=== PATIENT | female | born 1960 | race Caucasian/White ===

== ENCOUNTER → 2019-08-11 12:06 | Outpatient (BNVA) | payer MEDICAID, SELFPAY | PROVIDERS: Family Provider Nurse Practitioner Family; PCP Nurse Practitioner Family; Visit Provider Nurse Practitioner Family | DX: E11.9 Type 2 diabetes mellitus without complications (principal); H66.90 Otitis media, unspecified, unspecified ear | CPT/HCPCS: 36415; 80053; 83036; 84443; 85025 ==

== ENCOUNTER → 2019-08-23 09:06 | Outpatient (BNVA) | payer MEDICAID, SELFPAY | PROVIDERS: Family Provider Nurse Practitioner Family; PCP Nurse Practitioner Family; Visit Provider Psychiatry & Neurology Psychiatry | DX: F33.42 Major depressive disorder, recurrent, in full remission (principal); F01.50 Vascular dementia, unspecified severity, without behavioral disturbance, psychotic disturbance, mood disturbance, and anxiety | CPT/HCPCS: 99213 ==

== ENCOUNTER → 2019-09-01 08:39 | Outpatient (BNVA) | payer MEDICAID, SELFPAY | PROVIDERS: Family Provider Nurse Practitioner Family; PCP Nurse Practitioner Family; Visit Provider Specialist | DX: G43.711 Chronic migraine without aura, intractable, with status migrainosus (principal) | CPT/HCPCS: 64615; J0585 ==

== ENCOUNTER → 2019-09-02 11:35 | Outpatient (BNVA) | payer MEDICAID, SELFPAY | PROVIDERS: Family Provider Nurse Practitioner Family; PCP Nurse Practitioner Family; Visit Provider Nurse Practitioner Family | DX: N39.0 Urinary tract infection, site not specified (principal); I10 Essential (primary) hypertension; J30.2 Other seasonal allergic rhinitis | CPT/HCPCS: 36415; 80053; 83880; 85025; 87077; 87086; 87186 ==

== ENCOUNTER 2019-10-17 06:43 | Inpatient (IN) | payer MEDICAID, SELFPAY ==
[2019-10-17] VITALS (11 sets, daily range): BP systolic 115–154; BP diastolic 66–78; PULSE 72–91; RESP 15–22; TEMP 36.8–37.8; O2SAT 89–95; BMI 48.0
--- NOTE | 2019-10-17 06:56 | W.ED.ABDPA2 ---
HPI - Abdominal Pain General: Chief Complaint: Abdominal Pain Stated Complaint: ABD PAIN Time Seen by Provider: 10/17/19 06:48 History of Present Illness: HPI narrative: 59 yo female Dionicio complaining of lower abdominal pain into the left lower quadrant and the left flank. She had a temp at home of 1019. She had dysuria and urgency for the last 2 days lot of nausea no diarrhea or vomiting. She is not on any antibiotics now and recently has not been on any antibiotics. She denies hematuria no history of nephrolithiasis. She has no respiratory symptoms no change in cough she states she has a chronic cough but has not changed in either frequency character or severity. Associated Symptoms: Reports chills, dysuria and fever(s); Denies bloating, coffee ground emesis, constipation, diarrhea, hematochezia, hematemesis, melena, nausea and vomiting Review of Systems Const: Reports: fever and chills; Denies: body aches, change in appetite, fatigue or malaise ENMT: Denies: throat pain, ear pain, nasal discharge or nasal congestion Card: Denies: chest pain, edema, shortness of breath on exertion or shortness of breath when lying down Resp: Denies: shortness of breath, productive cough or non-productive cough GI: Denies: abdominal pain, nausea, vomiting, vomiting blood, coffee grounds in vomit, diarrhea, constipation, bloating, blood in stool or black tarry stool : Reports: flank pain, difficulty urinating, painful urination, urinary frequency and urinary urgency Skin/Breast: Denies: rash or itching PFSH ED PFSH: Medical History (Updated 10/17/19 @ 11:13 by Kayla Higgins DO) 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 Diabetes Dyslipidemia (high LDL; low HDL) Essential hypertension Knee arthropathy Major depression, recurrent, full remission Obstructive sleep apnea Vascular dementia without behavioral disturbance Surgical History History of arthroscopic knee surgery Bilateral History of section, classical History of cholecystectomy History of hysterectomy Hx of cardiac cath April 2016 Family History Mother Cancer Acute leukemia Father CAD (coronary artery disease) Social History (Updated 10/17/19 @ 11:14 by Kayla Higgins DO) Smoking and tobacco status: never smoked Second hand smoke exposure: No Alcohol intake: never Desire information about alcohol rehabilitation?: No Counseling given: No Substance/Drug Use: never Desire information about substance/drug rehabilitation?: No Counseling given: No Physical Exam Const: COMMON NORMALS: no apparent distress GENERAL APPEARANCE: cooperative and comfortable ORIENTATION/CONSCIOUSNESS: Yes awake, Yes oriented to person, Yes oriented to place and Yes oriented to time HENMT: COMMON NORMALS: normocephalic, head/scalp atraumatic, hearing grossly normal bilaterally, external ears normal, EAC's normal, TM's normal bilaterally, nasal mucous membranes and turbinates normal, moist oral mucous membranes and oropharynx normal HEAD & SCALP: normocephalic and atraumatic NOSE: nasal mucous membranes and turbinates normal EXTERNAL EAR: Yes external ears normal EXTERNAL AUDITORY CANAL: EAC's normal TYMPANIC MEMBRANE: TM's normal bilaterally Eye: COMMON NORMALS: PERRL, EOMs intact bilaterally, conjunctivae normal and no scleral icterus CONJUNCTIVA: Yes conjunctivae normal PUPIL: Yes PERRL Neck/C-Spine: COMMON NORMALS: full ROM, no lymphadenopathy, supple and no JVD Lymph: LYMPHATIC: no lymphadenopathy noted and no lymphedema noted Resp: COMMON NORMALS: normal respiratory effort, no retractions, no use of accessory muscles and clear to auscultation bilaterally AUSCULTATION: clear to auscultation bilaterally Cardio: COMMON NORMALS: no JVD, regular rate, regular rhythm and no murmurs RATE: regular rate RHYTHM: regular rhythm GI: COMMON NORMALS: soft to palpation and no hepatosplenomegaly AUSCULTATION: Yes normoactive bowel sounds PALPATION: Yes soft, No tender, No guarding and Yes no hepatosplenomegaly : BLADDER/KIDNEY EXAM: Yes CVA tenderness Back/Pelvis: GENERAL BACK: Yes CVA tenderness CVA tenderness: left Extremity: COMMON NORMALS: normal to inspection, normal capillary refill, no clubbing, cyanosis or edema, no calf tenderness and no pedal edema Neuro: SENSORIUM/ORIENTATION: Yes oriented to person, Yes oriented to place and Yes oriented to time Skin: COMMON NORMALS: no rashes or lesions noted GENERAL SKIN EXAM: no rashes or lesions noted Course Vital Signs: Vital signs: Vital Signs Temperature 98.7 F 10/17/19 16:00 Pulse Rate 72 10/17/19 16:00 Respiratory Rate 20 H 10/17/19 16:00 Blood Pressure 130/68 10/17/19 16:00 Pulse Oximetry 95 10/17/19 16:00 MDM - Abdominal Pain MDM Narrative: Medical decision making narrative: Reviewed case with the patient and with Dr. Higgins. Will admit for acute pyelonephritis orders are written Lab Data: Labs: Lab Results 10/17/19 10/17/19 10/17/19 Range/Units 07:00 07:00 07:28 WBC 10.2 H (4.0-10.0) 10^3/ uL RBC 3.93 L (4.1-5.3) 10^6/u L Hgb 11.7 (11.5-15.3) g/dL Hct 36.2 L (37.0-47.0) % MCV 92.1 (81-99) fL MCH 29.8 (28.0-34.0) pg MCHC 32.3 (30.0-36.0) g/dL RDW 12.9 (12.1-15.1) % Plt Count 155 (130-400) 10^3/c mm MPV 10.7 H (7.4-10.4) fL Neut % (Auto) 82.4 % Lymph % (Auto) 8.9 % Troup % (Auto) 7.6 % Eos % (Auto) 0.3 % Baso % (Auto) 0.4 % Neut # (Auto) 8.4 H (1.8-7.7) 10^3/u L Lymph # (Auto) 0.9 (0.8-4.8) 10^3/u L Troup # (Auto) 0.8 (0.2-0.9) 10^3/u L Eos # (Auto) 0.0 (0.0-0.8) 10^3/u L Baso # (Auto) 0.0 (0.0-0.1) 10^3/u L Nucleated RBC % (a uto) 0 % Nucleated RBCs # 0.0 /100WBC Sodium 138 (136-145) mmol/L Potassium 3.9 (3.5-5.1) mmol/L Chloride 100 (98-107) mmol/L Carbon Dioxide 23 (22-29) mmol/L Anion Gap 18.9 (5-19) BUN 22 H (6-20) mg/dL Creatinine 0.9 (0.5-0.9) mg/dL GFR Calculation 64.1 L (90-130) mL/min Glucose 197 H (65-115) mg/dL Calculated Osmolal ity 288 (285-295) mOsm/k g Calcium 9.8 (8.5-10.5) mg/dL Total Bilirubin 0.5 (0.15-1.2) mg/dL AST 20 (0-32) U/L ALT 19 (0-33) U/L Alkaline Phosphata se 84 (35-105) IU/L Total Protein 7.8 (6.6-8.7) g/dL Albumin 4.3 (3.5-5.2) g/dL Globulin 3.5 (1.3-4.6) g/dL Lipase 6 L (13-60) U/L Urine Color Yellow (Yellow) Urine Appearance Cloudy (CLEAR) Urine pH 5.0 (5-7) Ur Specific Gravit y 1.010 (1.005-1.030) Urine Protein 1+ H (Negative) Urine Glucose (UA) Norm (Normal) Urine Ketones Negative (Negative) Urine Blood 2+ H (Negative) Urine Nitrate Positive H (Negative) Urine Bilirubin Neg (NEGATIVE) Urine Urobilinogen Norm (Negative) mg/dL Ur Leukocyte Analy ase 2+ H (Negative) Urine RBC 25-40 H (0-2) /hpf Urine WBC >100 H (0-5) /hpf Ur Squamous Epith Cells 5-10 H (0-5) Urine Bacteria 2+ H (NONE) Urine Mucus Trace Discharge Plan Discharge Patient Disposition: Placed in Observation Admit Provider: Kayla Higgins Clinical Impression: Acute pyelonephritis Condition: Stable Referrals: ABELINO Alegria, [employer] [Primary Care Provider] - Discharge Date/Time: 10/17/19 10:03 Coding Level of Care Code 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
[2019-10-17 07:12] LABS: Basophils % 0.4 %; Eosinophils % 0.3 %; Hematocrit 36.2 % (37.0-47.0); Hemoglobin 11.7 g/dL (11.5-15.3); Lymphocytes # 0.9 10^3/uL (0.8-4.8); Lymphocytes % 8.9 %; Mean Corpuscular HGB Conc 32.3 g/dL (30.0-36.0); Mean Corpuscular Hemoglobin 29.8 pg (28.0-34.0); Mean Corpuscular Volume 92.1 fL (81-99); Mean Platelet Volume 10.7 fL (7.4-10.4); Monocytes # 0.8 10^3/uL (0.2-0.9); Monocytes % 7.6 %; Neutrophils # 8.4 10^3/uL (1.8-7.7); Neutrophils % 82.4 %; Nucleated Red Blood Cells % 0 %; Platelet Count 155 10^3/cmm (130-400); Red Blood Count 3.93 10^6/uL (4.1-5.3); Red Cell Distribution Width 12.9 % (12.1-15.1); White Blood Count 10.2 10^3/uL (4.0-10.0)
[2019-10-17 07:35] LABS: Alanine Aminotransferase 19 U/L (0-33); Albumin Level 4.3 g/dL (3.5-5.2); Alkaline Phosphatase 84 IU/L (35-105); Anion Gap 18.9 (5-19); Aspartate Amino Transferase 20 U/L (0-32); Blood Urea Nitrogen 22 mg/dL (6-20); Calcium 9.8 mg/dL (8.5-10.5); Carbon Dioxide 23 mmol/L (22-29); Chloride 100 mmol/L (98-107); Globulin 3.5 g/dL (1.3-4.6); Glomerular Filtration Rate 64.1 mL/min (90-130); Glucose 197 mg/dL (65-115); Lipase 6 U/L (13-60); Osmolality Calculated 288 mOsm/kg (285-295); Potassium 3.9 mmol/L (3.5-5.1); Sodium 138 mmol/L (136-145); Total Bilirubin 0.5 mg/dL (0.15-1.2); Total Protein 7.8 g/dL (6.6-8.7)
[2019-10-17] MEDS: ondansetron 2 mg/ML SDV 2 mL 4 MG IVP (07:38)
[2019-10-17] MEDS: morphine 4 mg/mL SDV 1 mL 2 MG IVP (07:38)
[2019-10-17] MEDS: sodium chloride 0.9% 500 ML 999 ML IV (07:41)
[2019-10-17 08:02] LABS: Add Urine Microscopic? YES; Bacteria Urine 2+; Bilirubin Urine Neg (NEGATIVE); Blood Urine 2+ (Negative); Glucose Urine UA Norm (Normal); Ketones Urine Negative (Negative); Leukocyte Esterase Urine 2+ (Negative); Nitrate Urine Positive (Negative); Protein Urine 1+ (Negative); RBC Urine 25-40 /hpf (0-2); Urine Appearance Cloudy (CLEAR); Urine Color Yellow (Yellow); Urobilinogen Urine Norm (Negative); WBC Urine >100 /hpf (0-5)
[2019-10-17 08:03] LABS: Add Urine Culture? Yes; Mucus Urine TRACE
--- NOTE | 2019-10-17 08:04 | US_ITS ---
WS: [id number] RENAL ULTRASOUND HISTORY: pyelonephritis COMPARISON: None available. TECHNIQUE: 2-D and color Doppler imaging of the kidney submitted. Right kidney: 11.3 cm x 5.8 cm x 5.2 cm. Normal echogenicity with no hydronephrosis or mass. Left kidney: 11.5 cm x 6.5 cm x 6.1 cm. Normal echogenicity with no hydronephrosis or mass. Aorta: Normal. Urinary Bladder: Normal distention. US/US renal BI* [id number] IMPRESSION: Normal renal ultrasound.
[2019-10-17] MEDS: sodium chloride 0.9% 1,000 ML 100 ML IV (10:23)
[2019-10-17] MEDS: diphenhydrAMINE 50 mg/mL SDV 1mL 25 MG IVP (10:23)
[2019-10-17] MEDS: acetaminophen 325 mg Tablet 650 MG PO ×2 (10:40→17:52)
[2019-10-17 10:49] LABS: Glucose Point of Care 179 mg/dL (70-110)
--- NOTE | 2019-10-17 11:04 | P.HP_ITS ---
Providers/Chief Complaint Admitting Physician: Kayla Higgins DO Primary Care Provider: MAGDIEL Vega Chief Complaint: PYLEONEPHRITIS History of Present Illness Shweta Morgan is a 59 year old female the past medical history of diabetes, hypertension, heart disease and obstructive sleep apnea that presented to the emergency department today for lower abdominal pain. She reports that she began developing symptoms on Thursday. She reported chills, unknown temperature at home, lower abdominal cramping and dysuria. She stated that then she began to have flank pain on the left. Due to continued symptoms she came into the ER for further evaluation and treatment today. She reports that she was recently on an antibiotic in August due to urinary tract infection, reports multiple drug allergies, stating that some of them she is uncertain of the allergic reaction. She reports having an allergy to sulfa drugs, however reports taking Bactrim in the past with no issues. Patient denies any respiratory symptoms, reported occasional chronic cough with no acute changes. She denies any exposure to anyone that is tested positive, or under investigation for CO VID-19. Patient was seen and evaluated in the emergency department noted to have concern for pyelonephritis due to her extensive drug allergies she was placed on observation for close monitoring and given Rocephin along with small dose of Benadryl. Review of Systems Const: Reports: chills; Denies: fever Eyes: Denies: change in vision ENMT: Denies: nasal congestion Card: Denies: chest pain, palpitations or edema Resp: Reports: other (Occasional nonproductive cough, unchanged); Denies: shortness of breath, productive cough or coughing up blood GI: Reports: abdominal pain; Denies: nausea, vomiting, diarrhea, constipation, blood in stool or black tarry stool : Reports: painful urination; Denies: blood in urine Musc: Denies: extremity pain or muscle cramps Skin/Breast: Denies: rash or new lesion Neuro: Denies: headache or dizziness Psych: Denies: anxiety or depression Endo: Denies: excessive urination or hot flashes Matias/Lymph: Denies: easy bruising or easy bleeding Medications/Allergies Home Medications Medication Instructions Recorded Confirmed Last Taken Type ergocalciferol (vitamin D2) 1,250 1,250 mcg PO .weekly #4 cap 07/25/19 10/17/19 Unknown Rx mcg (50,000 unit) capsule hydralazine 25 mg tablet 25 mg PO TID #360 tab 07/25/19 10/17/19 10/16/19 Rx magnesium oxide 400 mg PO BID #60 cap 07/25/19 10/17/19 10/16/19 Rx sucralfate 1 gram tablet 1 gm PO BID PRN #60 tab 07/25/19 10/17/19 Unknown Rx diabetic supplies, miscellan. #120 each 07/26/19 10/17/19 Unknown Rx lancets 30 gauge #100 each 07/26/19 10/17/19 Unknown Rx aspirin 81 mg chewable tablet 81 mg PO DAILY 08/24/19 10/17/19 10/16/19 History clopidogrel 75 mg tablet 75 mg PO DAILY 08/24/19 10/17/19 10/16/19 History fluticasone 500 mcg-salmeterol 50 1 inh INHALATION BID 08/24/19 10/17/19 10/16/19 History mcg/dose blistr powdr for inhalation melatonin 10 mg capsule 10 mg PO BEDTIME cap 08/24/19 10/17/19 10/16/19 History rosuvastatin 10 mg tablet 10 mg PO DAILY 08/24/19 10/17/19 10/16/19 History nitroglycerin 0.4 mg sublingual 0.4 mg SUBLINGUAL Q5M PRN #30 tab 08/26/19 10/17/19 Unknown Rx tablet aripiprazole 10 mg tablet 10 mg PO DAILY #30 tab 09/01/19 10/17/19 10/16/19 Rx pantoprazole 40 mg tablet,delayed 40 mg PO DAILY #30 tab 09/01/19 10/17/19 10/16/19 Rx release cetirizine 10 mg tablet 10 mg PO DAILY 30 Days #1 tab 09/02/19 10/17/19 10/16/19 Rx hydrocodone 5 mg-acetaminophen 325 1 tab PO Q4H PRN 09/02/19 10/17/19 10/16/19 History mg tablet pregabalin 150 mg capsule See Rx Instructions .ROUTE 09/02/19 10/17/19 10/16/19 History .COMPLEX cap insulin aspart U-100 100 unit/mL 15 unit SUBCUT TID 30 Days #15 ml 09/08/19 10/17/19 Unknown Rx (3 mL) subcutaneous pen acyclovir 200 mg capsule 200 mg PO BID #60 cap 09/21/19 10/17/19 10/16/19 Rx desvenlafaxine succinate 50 mg 50 mg PO DAILY #30 tab 09/21/19 10/17/19 10/16/19 Rx tablet,extended release 24 hr isosorbide mononitrate 30 mg 90 mg PO DAILY #270 tab 09/21/19 10/17/19 10/16/19 Rx tablet,extended release 24 hr ropinirole 3 mg tablet 3 mg PO DAILY #30 tab 09/21/19 10/17/19 10/16/19 Rx sitagliptin 100 mg tablet 100 mg PO DAILY 30 Days #30 tab 09/21/19 10/17/19 10/16/19 Rx amlodipine 10 mg tablet 10 mg PO DAILY #90 tab 09/22/19 10/17/19 10/16/19 Rx meclizine 25 mg tablet 25 mg PO TID PRN #30 tab 09/30/19 10/17/19 Unknown Rx Klor-Con 10 See Rx Instructions .ROUTE .COMPLEX 10/17/19 10/17/19 10/16/19 History albuterol sulfate 2 puff INHALATION QID PRN 10/17/19 10/17/19 Unknown History furosemide See Rx Instructions .ROUTE .COMPLEX 10/17/19 10/17/19 10/16/19 History insulin degludec [Tresiba U-100 100 unit SUBCUT BEDTIME 10/17/19 10/17/19 10/16/19 History Insulin] trazodone 50 mg PO BEDTIME 10/17/19 10/17/19 10/16/19 History Allergies Allergy/AdvReac Type Severity Reaction Status Date / Time acetaminophen [From Tylenol] Allergy ADR-Chest Verified 10/17/19 06:55 Pain cephalexin Allergy unknown Verified 10/17/19 06:54 doxycycline Allergy Unknown Verified 10/17/19 06:55 erythromycin base Allergy ALGY-Hives Verified 10/17/19 06:55 insulin detemir Allergy rash Verified 10/17/19 06:54 [From Levemir U-100 Insulin] levofloxacin [From Levaquin] Allergy unknown Verified 10/17/19 06:54 liraglutide [From Victoza] Allergy unknown Verified 10/17/19 06:54 Penicillins Allergy ALGY-Hives Verified 10/17/19 06:54 Sulfa (Sulfonamide Allergy unknown Verified 10/17/19 06:54 Antibiotics) tetracycline Allergy unknown Verified 10/17/19 06:54 PFSH Acute PFSH: Medical History (Updated 10/17/19 @ 11:13 by Kayla Higgins DO) Atherosclerosis of coronary artery of [place] heart with angina pectoris Diabetes Dyslipidemia (high LDL; low HDL) Essential hypertension Knee arthropathy Major depression, recurrent, full remission Obstructive sleep apnea Vascular dementia without behavioral disturbance Surgical History History of arthroscopic knee surgery Bilateral History of section, classical History of cholecystectomy History of hysterectomy Hx of cardiac cath April 2016 Family History Mother Cancer Acute leukemia Father CAD (coronary artery disease) Social History (Updated 10/17/19 @ 11:14 by Kayla Higgins DO) Smoking and tobacco status: never smoked Second hand smoke exposure: No Alcohol intake: never Desire information about alcohol rehabilitation?: No Counseling given: No Substance/Drug Use: never Desire information about substance/drug rehabilitation?: No Counseling given: No Supplemental PFSH Information: Patient lives at home, has home health services through [facility] Vitals/I&O/Wt Last Vital Signs Temp 99.7 F H 10/17/19 10:19 Pulse 84 10/17/19 10:19 Resp 20 H 10/17/19 10:19 BP 154/78 10/17/19 10:19 Pulse Ox 95 10/17/19 10:19 10/16/19 10/17/19 10/17/19 22:59 06:59 14:59 Intake Total 500 / 500 Balance 500 / 500 Weight last 48 hrs Weight 107.955 kg Physical Exam Const: COMMON NORMALS: oriented x3 and alert GENERAL APPEARANCE: cooperative ORIENTATION/CONSCIOUSNESS: Yes awake, Yes oriented to person, Yes oriented to place and Yes oriented to time HENMT: COMMON NORMALS: normocephalic and head/scalp atraumatic HEAD & SCALP: normocephalic and atraumatic Eye: COMMON NORMALS: PERRL PUPIL: Yes PERRL Neck/C-Spine: COMMON NORMALS: supple GENERAL: Yes normal visual inspection Resp: COMMON NORMALS: normal respiratory effort and clear to auscultation bilaterally EFFORT & INSPECTION: Yes able to speak in complete sentences AUSCULTATION: clear to auscultation bilaterally, no rhonchi and no wheezes Cardio: COMMON NORMALS: regular rate, regular rhythm and no murmurs RATE: regular rate RHYTHM: regular rhythm GI: PALPATION: Yes soft OTHER: Tenderness to palpation in the suprapubic region, no guarding or rigidity, no abdominal distention, obese, normal bowel sounds : BLADDER/KIDNEY EXAM: Yes CVA tenderness on the left (Mild) Extremity: COMMON NORMALS: no clubbing, cyanosis or edema and no calf tenderness Neuro: COMMON NORMALS: oriented x3, CN's II-XII intact bilaterally, moves all extremities and no focal motor deficits SENSORIUM/ORIENTATION: Yes alert, Yes oriented to person, Yes oriented to place and Yes oriented to time SPEECH: speech normal Psych: COMMON NORMALS: mental status grossly normal and cooperative Skin: COMMON NORMALS: no rashes or lesions noted GENERAL SKIN EXAM: no sky hes or lesions noted Data : 10/17/19 07:00 10/17/19 07:00 Micro: Microbiology 10/17/19 07:18 Blood Culture - Preliminary Blood SPECIMEN COLLECTED 10/17/19 07:00 Blood Culture - Preliminary Blood SPECIMEN COLLECTED A&P Assessment and plan (1) Acute pyelonephritis: Concern for left-sided flank pain with urinary tract infection and pyelonephritis. Placed on observation due to concern for multiple medication allergies and symptoms. Patient was given Benadryl along with dose of Rocephin in the ED, will continue to monitor closely and continue on Rocephin 1 g every 24 hours. Adjust antibiotic coverage based on clinical improvement and culture results. Tylenol and other pain control as needed Zofran as needed for nausea Renal ultrasound ordered and reviewed, no acute findings. Consider further imaging if indicated, however will hold off at this time Status: Acute (2) Atherosclerosis of coronary artery of [place] heart with angina pectoris: Followed closely by Dr. Winters Denies any chest pain or shortness of breath Continue on home medications of statin, aspirin, Plavix, Imdur, patient is not on a beta-kait at this time Status: Acute Qualifiers: Coronary Disease-Associated Artery/Lesion type: [place] artery Qualified Code(s): I25.119 - Atherosclerotic heart disease of [place] coronary artery with unspecified angina pectoris (3) Essential hypertension: Continue on amlodipine, Lasix, hydralazine Blood pressure in good control at this time Status: Acute (4) Obstructive sleep apnea: Continue with home CPAP settings Status: Acute (5) Vascular dementia without behavioral disturbance: Followed by Dr. Berumen, appears to be at baseline Status: Acute (6) Diabetes: Diabetes mellitus type 2, insulin-dependent Patient is on Januvia 100 mg daily along with NovoLog per sliding scale and she received 100 units at bedtime. Will hold on Januvia and decrease Tresiba to 75 units at bedtime as do not wish for patient to become hypoglycemic in the inpatient setting due to likely decreased oral intake from acute illness. 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 Expected stay less than 2 midnights Coding Level of Care Code Acute Inside Steward/Stewardess for [facility] Fwd Diagnoses Acute pyelonephritis N10 Atherosclerosis of coronary artery of [place] heart with angina pectoris I25.119 Coronary Disease-Associated Artery/Lesion type: [place] artery Essential hypertension I10 Obstructive sleep apnea G47.33 Vascular dementia without behavioral disturbance F01.50 Diabetes E11.42; Z79.4 Diabetes mellitus type: type 2 Diabetes mellitus terminal supervisor insulin use: with terminal supervisor use Diabetes mellitus complication status: with neurologic complications Diabetes mellitus complication detail: with polyneuropathy
[2019-10-17] MEDS: cefTRIAXone 1,000 MG in sodium chloride 0.9% (plus) 50 ML 100 MG IV (11:10)
[2019-10-17] MEDS: isosorbide mononitrate ER 30 mg Tablet 90 MG PO (12:39)
[2019-10-17] MEDS: FUROsemide 20 mg Tablet PO (12:39)
[2019-10-17] MEDS: ropinirole 1 mg Tablet PO (12:39)
[2019-10-17] MEDS: amlodipine 10 mg Tablet PO (12:39)
[2019-10-17] MEDS: hyDRALAzine 25 mg Tablet PO ×3 (12:40→20:12)
[2019-10-17] MEDS: aspirin 81 mg Chew Tablet PO (12:41)
[2019-10-17] MEDS: ARIPiprazole 10 mg Tablet PO (12:41)
[2019-10-17] MEDS: clopidogrel 75 mg Tablet PO (12:41)
[2019-10-17] MEDS: pregabalin 150 mg Capsule PO (12:41)
[2019-10-17] MEDS: ropinirole 2 mg Tablet PO (12:41)
[2019-10-17] MEDS: pantoprazole DR 40 mg Tablet PO (12:42)
[2019-10-17] MEDS: cetirizine 10 mg Tablet PO (12:42)
[2019-10-17] MEDS: enoxaparin 40 mg/0.4 mL Syringe SUBCUT (12:42)
[2019-10-17] MEDS: HYDROcodone-acetaminophen 5-325 mg Tablet 1 TAB PO ×2 (13:11→20:11)
[2019-10-17] MEDS: desvenlafaxine 50 mg Tablet PO (13:11)
[2019-10-17 16:32] LABS: Glucose Point of Care 162 mg/dL (70-110)
[2019-10-17] MEDS: acyclovir 400 mg Tablet 200 MG PO (17:52)
[2019-10-17] MEDS: magnesium oxide 400 mg tablet PO (17:52)
[2019-10-17] MEDS: atorvastatin 40 mg Tablet PO (20:12)
[2019-10-17] MEDS: trazodone 50 mg Tablet PO (20:13)
[2019-10-17] MEDS: pregabalin 150 mg Capsule 300 MG PO (20:13)
[2019-10-17 20:57] LABS: Glucose Point of Care 222 mg/dL (70-110)
[2019-10-18] VITALS (8 sets, daily range): BP systolic 126–150; BP diastolic 64–84; PULSE 77–91; RESP 18–24; TEMP 36.8–38.1; O2SAT 90–95
[2019-10-18] MEDS: HYDROcodone-acetaminophen 5-325 mg Tablet 1 TAB PO ×3 (02:13→19:07)
[2019-10-18 03:11] LABS: Basophils % 0.3 %; Eosinophils # 0.1 10^3/uL (0.0-0.8); Hematocrit 31.9 % (37.0-47.0); Lymphocytes # 0.7 10^3/uL (0.8-4.8); Lymphocytes % 11.8 %; Mean Corpuscular HGB Conc 31.3 g/dL (30.0-36.0); Mean Corpuscular Hemoglobin 29.9 pg (28.0-34.0); Mean Corpuscular Volume 95.2 fL (81-99); Mean Platelet Volume 10.7 fL (7.4-10.4); Monocytes # 0.5 10^3/uL (0.2-0.9); Monocytes % 8.3 %; Neutrophils # 4.9 10^3/uL (1.8-7.7); Neutrophils % 78.3 %; Nucleated Red Blood Cells % 0 %; Platelet Count 116 10^3/cmm (130-400); Red Blood Count 3.35 10^6/uL (4.1-5.3); Red Cell Distribution Width 13.1 % (12.1-15.1); White Blood Count 6.3 10^3/uL (4.0-10.0)
[2019-10-18 03:45] LABS: Alanine Aminotransferase 14 U/L (0-33); Albumin Level 3.5 g/dL (3.5-5.2); Alkaline Phosphatase 71 IU/L (35-105); Anion Gap 18.7 (5-19); Aspartate Amino Transferase 13 U/L (0-32); Blood Urea Nitrogen 20 mg/dL (6-20); Carbon Dioxide 22 mmol/L (22-29); Chloride 101 mmol/L (98-107); Globulin 3.1 g/dL (1.3-4.6); Glomerular Filtration Rate 73.4 mL/min (90-130); Glucose 202 mg/dL (65-115); Osmolality Calculated 288 mOsm/kg (285-295); Potassium 3.7 mmol/L (3.5-5.1); Sodium 138 mmol/L (136-145); Total Bilirubin 0.3 mg/dL (0.15-1.2); Total Protein 6.6 g/dL (6.6-8.7)
[2019-10-18 06:45] LABS: Glucose Point of Care 185 mg/dL (70-110)
[2019-10-18] MEDS: clopidogrel 75 mg Tablet PO (08:56)
[2019-10-18] MEDS: pregabalin 150 mg Capsule PO ×2 (08:56→11:57)
[2019-10-18] MEDS: desvenlafaxine 50 mg Tablet PO (08:56)
[2019-10-18] MEDS: isosorbide mononitrate ER 30 mg Tablet 90 MG PO (08:57)
[2019-10-18] MEDS: hyDRALAzine 25 mg Tablet PO ×3 (08:57→20:58)
[2019-10-18] MEDS: ropinirole 2 mg Tablet PO (08:57)
[2019-10-18] MEDS: acyclovir 400 mg Tablet 200 MG PO ×2 (08:57→17:23)
[2019-10-18] MEDS: ARIPiprazole 10 mg Tablet PO (08:57)
[2019-10-18] MEDS: aspirin 81 mg Chew Tablet PO (08:57)
[2019-10-18] MEDS: magnesium oxide 400 mg tablet PO ×2 (08:57→17:23)
[2019-10-18] MEDS: cetirizine 10 mg Tablet PO (08:57)
[2019-10-18] MEDS: amlodipine 10 mg Tablet PO (08:57)
[2019-10-18] MEDS: pantoprazole DR 40 mg Tablet PO (08:57)
[2019-10-18] MEDS: ropinirole 1 mg Tablet PO (08:58)
[2019-10-18 11:19] LABS: Glucose Point of Care 267 mg/dL (70-110)
--- NOTE | 2019-10-18 11:52 | PC.CHAP ---
Pastoral Care Encounter/Spiritual Assessment Type of Contact [] Declined fire lieutenant visit [] Patient/Family/Request visit [] Outpatient visit [] Follow-up visit [] Physician referral [] Code/Alert [x] Routine visit [] Staff referral [] Actively dying [] Patient sleeping [] Family support [] [] Out of room [] Palliative care [] [x] Receiving care in room [] Pre-surgical visit [] Trauma [] Long length of stay [] ICU visit [] Other: Relational/Emotional Strength [x] Patient feels connected with others/family/visitors/staff [] Distress [] Loneliness/isolation [] Abandonment Spirituality of Patient [x] Person of Lyn [] Attends Restorationism of their Lyn [x] Believes in Prayer [] Reads Bible or Spiritism materials [] There are Spiritual issues to be addressed Portable Pinch Riveter Interventions [x] Prayer [x] Active listening [x] Non-anxious presence [x] Spiritual/emotional support [x] Crisis/trauma care [x] Spiritual counseling [] Bereavement support [] Provided bereavement packet [] Provided Bible/devotional materials [] Provided toy/stuffed animal, coloring book to patient or family member [] Provided Communion [] Anointing/Hope [] Salvation [x] Completed spiritual assessment [] Other: Impact on Illness or Injury [] Angry [] Fearful [] Anxious [] Often cries [] Exhaustion [] Unable to work [] Unable to attend congregation [] Unable to walk/stand [] Unable to read [] Unable to drive [] Unable to eat/drink [] Unable to sleep [] Unable to be with family [] Patient intubated [] Other: Summary going on [place] [employer], feels good about going home Time spent with patient 10 mins
[2019-10-18] MEDS: cefTRIAXone 1,000 MG in sodium chloride 0.9% (plus) 50 ML 100 MG IV (12:01)
[2019-10-18] MEDS: acetaminophen 325 mg Tablet 650 MG PO (12:35)
--- NOTE | 2019-10-18 14:52 | PM.PN ---
Subjective Subjective: Interval history: Patient awake in bed at time of exam this morning. She denied any chest pain or shortness of breath. Reported some continued suprapubic tenderness, no nausea or vomiting. Patient reevaluated this afternoon reported that she is feeling somewhat better but continues to have some discomfort and dysuria. Vitals/I&O/Wt Last Vital Signs Temp 98.3 F 10/18/19 11:59 Pulse 91 10/18/19 11:59 Resp 20 H 10/18/19 11:59 BP 146/80 10/18/19 11:59 Pulse Ox 95 10/18/19 11:59 10/17/19 10/18/19 10/18/19 22:59 06:59 14:59 Intake Total 1367 / 2390.333 696 / 696 Output Total 230 / 480 850 / 1330 300 / 300 Balance 1137 / 1910.333 -850 / 1060.333 396 / 396 Weight last 48 hrs Weight 115.893 kg Weight 107.955 kg Physical Exam Const: COMMON NORMALS: oriented x3 and alert GENERAL APPEARANCE: cooperative ORIENTATION/CONSCIOUSNESS: Yes awake, Yes oriented to person, Yes oriented to place and Yes oriented to time HENMT: COMMON NORMALS: normocephalic and head/scalp atraumatic HEAD & SCALP: normocephalic and atraumatic Eye: COMMON NORMALS: PERRL PUPIL: Yes PERRL Neck/C-Spine: COMMON NORMALS: supple GENERAL: Yes normal visual inspection Resp: COMMON NORMALS: normal respiratory effort and clear to auscultation bilaterally EFFORT & INSPECTION: Yes able to speak in complete sentences AUSCULTATION: clear to auscultation bilaterally, no rhonchi and no wheezes Cardio: COMMON NORMALS: regular rate, regular rhythm and no murmurs RATE: regular rate RHYTHM: regular rhythm GI: COMMON NORMALS: soft to palpation PALPATION: Yes soft OTHER: Tenderness to palpation in the suprapubic region, no guarding or rigidity, no abdominal distention, obese, normal bowel sounds : BLADDER/KIDNEY EXAM: Yes CVA tenderness on the left (Mild) Back/Pelvis: GENERAL BACK: Yes CVA tenderness Extremity: COMMON NORMALS: no clubbing, cyanosis or edema and no calf tenderness Neuro: COMMON NORMALS: oriented x3, CN's II-XII intact bilaterally, moves all extremities and no focal motor deficits SENSORIUM/ORIENTATION: Yes alert, Yes oriented to person, Yes oriented to place and Yes oriented to time SPEECH: speech normal Psych: COMMON NORMALS: mental status grossly normal and cooperative Skin: COMMON NORMALS: no rashes or lesions noted GENERAL SKIN EXAM: no rashes or lesions noted Data : 10/18/19 02:45 10/18/19 02:45 Micro: Microbiology 10/17/19 07:28 Urine Culture - Preliminary Urine,Clean Catch Gram Negative Rods 10/17/19 07:18 Blood Culture - Preliminary Blood NEGATIVE TO DATE 10/17/19 07:00 Blood Culture - Preliminary Blood NEGATIVE TO DATE A&P Assessment and plan (1) Acute pyelonephritis: To inpatient admission due to patient having fever and this morning Patient doing well with Rocephin, will continue at this time and transition to oral antibiotics when appropriate. However due to continued fever will require inpatient admission for further treatment Zofran as needed for nausea Status: Acute (2) Atherosclerosis of coronary artery of [place] heart with angina pectoris: Followed closely by Dr. Winters Denies any chest pain or shortness of breath Continue on home medications of statin, aspirin, Plavix, Imdur, patient is not on a beta-kait at this time Status: Acute Qualifiers: Coronary Disease-Associated Artery/Lesion type: [place] artery Qualified Code(s): I25.119 - Atherosclerotic heart disease of [place] coronary artery with unspecified angina pectoris (3) Essential hypertension: Continue on amlodipine, Lasix, hydralazine Blood pressure in good control at this time Status: Acute (4) Obstructive sleep apnea: Continue with home CPAP settings Status: Acute (5) Vascular dementia without behavioral disturbance: Followed by Dr. Berumen, appears to be at baseline Status: Acute (6) Diabetes: Diabetes mellitus type 2, insulin-dependent Patient is on Januvia 100 mg daily along with NovoLog per sliding scale and she received 100 units at bedtime. Increase Tresiba to home dose of 100 units at bedtime Continue sliding scale insulin Status: Chronic Qualifiers: Diabetes mellitus type: type 2 Diabetes mellitus superintendent terminal insulin use: with superintendent terminal use Diabetes mellitus complication status: with neurologic complications Diabetes mellitus complication detail: with polyneuropathy Qualified Code(s): E11.42 - Type 2 diabetes mellitus with diabetic polyneuropathy; Z79.4 - lobsterman (current) use of insulin Attestations Medical Necessity Statement*: Change to inpatient admission due to concern for continued fever with pyelonephritis Coding Level of Care Code Acute Iv Therapy Nurse for Chg Fwd Diagnoses Acute pyelonephritis N10 Atherosclerosis of coronary artery of [place] heart with angina pectoris I25.119 Coronary Disease-Associated Artery/Lesion type: [place] artery Essential hypertension I10 Obstructive sleep apnea G47.33 Vascular dementia without behavioral disturbance F01.50 Diabetes E11.42; Z79.4 Diabetes mellitus type: type 2 Diabetes mellitus half-way insulin use: with half-way use Diabetes mellitus complication status: with neurologic complications Diabetes mellitus complication detail: with polyneuropathy
[2019-10-18 17:10] LABS: Glucose Point of Care 249 mg/dL (70-110)
[2019-10-18] MEDS: atorvastatin 40 mg Tablet PO (20:57)
[2019-10-18] MEDS: pregabalin 150 mg Capsule 300 MG PO (20:57)
[2019-10-18] MEDS: trazodone 50 mg Tablet PO (20:57)
[2019-10-18 21:09] LABS: Glucose Point of Care 226 mg/dL (70-110)
[2019-10-19] VITALS (10 sets, daily range): BP systolic 112–146; BP diastolic 59–72; PULSE 76–85; RESP 18–24; TEMP 36.5–37.2; O2SAT 94–98
[2019-10-19 05:27] LABS: Basophils % 0.2 %; Eosinophils % 0.5 %; Hemoglobin 9.6 g/dL (11.5-15.3); Lymphocytes # 0.8 10^3/uL (0.8-4.8); Mean Corpuscular Hemoglobin 30.4 pg (28.0-34.0); Mean Corpuscular Volume 94.9 fL (81-99); Mean Platelet Volume 10.4 fL (7.4-10.4); Monocytes # 0.4 10^3/uL (0.2-0.9); Monocytes % 9.8 %; Neutrophils # 3.2 10^3/uL (1.8-7.7); Neutrophils % 71.8 %; Nucleated Red Blood Cells % 0 %; Platelet Count 116 10^3/cmm (130-400); Red Blood Count 3.16 10^6/uL (4.1-5.3); Red Cell Distribution Width 12.8 % (12.1-15.1); White Blood Count 4.4 10^3/uL (4.0-10.0)
[2019-10-19 06:56] LABS: Glucose Point of Care 244 mg/dL (70-110)
[2019-10-19] MEDS: ropinirole 2 mg Tablet PO (09:00)
[2019-10-19] MEDS: pregabalin 150 mg Capsule PO ×2 (09:00→12:20)
[2019-10-19] MEDS: ropinirole 1 mg Tablet PO (09:00)
[2019-10-19] MEDS: cetirizine 10 mg Tablet PO (09:00)
[2019-10-19] MEDS: hyDRALAzine 25 mg Tablet PO ×3 (09:00→20:27)
[2019-10-19] MEDS: aspirin 81 mg Chew Tablet PO (09:00)
[2019-10-19] MEDS: isosorbide mononitrate ER 30 mg Tablet 90 MG PO (09:00)
[2019-10-19] MEDS: amlodipine 10 mg Tablet PO (09:00)
[2019-10-19] MEDS: FUROsemide 20 mg Tablet PO (09:00)
[2019-10-19] MEDS: ARIPiprazole 10 mg Tablet PO (09:00)
[2019-10-19] MEDS: clopidogrel 75 mg Tablet PO (09:00)
[2019-10-19] MEDS: pantoprazole DR 40 mg Tablet PO (09:00)
[2019-10-19] MEDS: desvenlafaxine 50 mg Tablet PO (09:00)
[2019-10-19] MEDS: acyclovir 400 mg Tablet 200 MG PO ×2 (09:01→17:17)
[2019-10-19] MEDS: magnesium oxide 400 mg tablet PO ×2 (09:01→17:17)
--- NOTE | 2019-10-19 10:12 | PC.CHAP ---
Pastoral Care Encounter/Spiritual Assessment Type of Contact [] Declined director of clinical applications visit [] Patient/Family/Request visit [] Outpatient visit [] Follow-up visit [] Physician referral [] Code/Alert [x] Routine visit [] Staff referral [] Actively dying [] Patient sleeping [] Family support [] [] Out of room [] Palliative care [] [] Receiving care in room [] Pre-surgical visit [] Trauma [] Long length of stay [] ICU visit [] Other: Relational/Emotional Strength [] Patient feels connected with others/family/visitors/staff [] Distress [] Loneliness/isolation [] Abandonment Spirituality of Patient [] Person of Lyn [] Attends Orthodoxy of their Lyn [x] Believes in Prayer [] Reads Bible or Oriental Orthodox materials [] There are Spiritual issues to be addressed Radio Frequency Design Engineer Interventions [x] Prayer [] Active listening [] Non-anxious presence [] Spiritual/emotional support [] Crisis/trauma care [] Spiritual counseling [] Bereavement support [] Provided bereavement packet [] Provided Bible/devotional materials [] Provided toy/stuffed animal, coloring book to patient or family member [] Provided Communion [] Anointing/[place] [] Salvation [x] Completed spiritual assessment [] Other: Impact on Illness or Injury [] Angry [] Fearful [] Anxious [] Often cries [] Exhaustion [] Unable to work [] Unable to attend religious [] Unable to walk/stand [] Unable to read [] Unable to drive [] Unable to eat/drink [] Unable to sleep [] Unable to be with family [] Patient intubated [] Other: Summary Patient resting Time spent with patient 5 min
[2019-10-19 10:58] LABS: Glucose Point of Care 302 mg/dL (70-110)
[2019-10-19] MEDS: HYDROcodone-acetaminophen 5-325 mg Tablet 1 TAB PO ×2 (13:47→20:24)
--- NOTE | 2019-10-19 16:17 | PM.PN ---
Subjective Subjective: Interval history: Patient awake in bed at time of exam this morning. She reported increased loose stools but improved dysuria. Discussed with patient plan for stool testing. Vitals/I&O/Wt Last Vital Signs Temp 98.5 F 10/19/19 15:16 Pulse 80 10/19/19 15:16 Resp 18 10/19/19 15:16 BP 127/72 10/19/19 15:16 Pulse Ox 98 10/19/19 15:16 10/19/19 10/19/19 10/19/19 06:59 14:59 22:59 Intake Total 120 / 1296 120 / 120 Output Total 800 / 1950 Balance -680 / -654 120 / 120 Weight last 48 hrs Weight 116.658 kg Weight 116.658 kg Weight 115.893 kg Physical Exam Const: COMMON NORMALS: oriented x3 and alert GENERAL APPEARANCE: cooperative ORIENTATION/CONSCIOUSNESS: Yes awake, Yes oriented to person, Yes oriented to place and Yes oriented to time HENMT: COMMON NORMALS: normocephalic and head/scalp atraumatic HEAD & SCALP: normocephalic and atraumatic Eye: COMMON NORMALS: PERRL PUPIL: Yes PERRL Neck/C-Spine: COMMON NORMALS: supple GENERAL: Yes normal visual inspection Resp: COMMON NORMALS: normal respiratory effort and clear to auscultation bilaterally EFFORT & INSPECTION: Yes able to speak in complete sentences AUSCULTATION: clear to auscultation bilaterally, no rhonchi and no wheezes Cardio: COMMON NORMALS: regular rate, regular rhythm and no murmurs RATE: regular rate RHYTHM: regular rhythm GI: COMMON NORMALS: soft to palpation PALPATION: Yes soft OTHER: Normal bowel sounds, no guarding or rigidity, no tenderness to palpation today : BLADDER/KIDNEY EXAM: Yes CVA tenderness on the left (Mild) Back/Pelvis: GENERAL BACK: Yes CVA tenderness Extremity: COMMON NORMALS: no clubbing, cyanosis or edema and no calf tenderness Neuro: COMMON NORMALS: oriented x3, CN's II-XII intact bilaterally, moves all extremities and no focal motor deficits SENSORIUM/ORIENTATION: Yes alert, Yes oriented to person, Yes oriented to place and Yes oriented to time SPEECH: speech normal Psych: COMMON NORMALS: mental status grossly normal and cooperative Skin: COMMON NORMALS: no rashes or lesions noted GENERAL SKIN EXAM: no rashes or lesions noted Data : 10/19/19 05:10 10/18/19 02:45 Micro: Microbiology 10/19/19 12:25 C.difficile Toxin B Gene (PCR) - Final Stool 10/17/19 07:28 Urine Culture - Final Urine,Clean Catch Escherichia coli A&P Assessment and plan (1) Acute pyelonephritis: Improving Continue on Rocephin, urine culture showing E. coli Status: Acute (2) Atherosclerosis of coronary artery of [place] heart with angina pectoris: Followed closely by Dr. Winters Denies any chest pain or shortness of breath Continue on home medications of statin, aspirin, Plavix, Imdur, patient is not on a beta-kait at this time Status: Acute Qualifiers: Coronary Disease-Associated Artery/Lesion type: [place] artery Qualified Code(s): I25.119 - Atherosclerotic heart disease of [place] coronary artery with unspecified angina pectoris (3) Essential hypertension: Continue on amlodipine, Lasix, hydralazine Blood pressure in good control at this time Status: Acute (4) Obstructive sleep apnea: Continue with home CPAP settings Status: Acute (5) Vascular dementia without behavioral disturbance: Followed by Dr. Berumen, appears to be at baseline Status: Acute (6) Diabetes: Diabetes mellitus type 2, insulin-dependent Patient is on Januvia 100 mg daily along with NovoLog per sliding scale and she received 100 units at bedtime. 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 C. difficile toxin checked and returned positive. Will start on oral vancomycin. We will continue to monitor patient closely with possible discharge to home tomorrow Attestations Medical Necessity Statement*: Patient requires further hospitalization due to pyelonephritis with C. difficile colitis. Coding Level of Care Code Acute Clay Artisan for Bailey Arce Diagnoses Acute pyelonephritis N10 Atherosclerosis of coronary artery of [place] heart with angina pectoris I25.119 Coronary Disease-Associated Artery/Lesion type: [place] artery Essential hypertension I10 Obstructive sleep apnea G47.33 Vascular dementia without behavioral disturbance F01.50 Diabetes E11.42; Z79.4 Diabetes mellitus type: type 2 Diabetes mellitus corn lab technician insulin use: with halfway use Diabetes mellitus complication status: with neurologic complications Diabetes mellitus complication detail: with polyneuropathy
[2019-10-19 16:49] LABS: Glucose Point of Care 200 mg/dL (70-110)
[2019-10-19] MEDS: trazodone 50 mg Tablet PO (20:24)
[2019-10-19] MEDS: atorvastatin 40 mg Tablet PO (20:24)
[2019-10-19] MEDS: pregabalin 150 mg Capsule 300 MG PO (20:24)
[2019-10-19 20:34] LABS: Glucose Point of Care 273 mg/dL (70-110)
[2019-10-20] VITALS (8 sets, daily range): BP systolic 105–153; BP diastolic 63–83; PULSE 66–88; RESP 18–20; TEMP 36.6–36.9; O2SAT 88–98
[2019-10-20] MEDS: HYDROcodone-acetaminophen 5-325 mg Tablet 1 TAB PO ×2 (00:22→04:43)
[2019-10-20] MEDS: sodium chloride 0.9% 1,000 ML 30 ML IV (03:15)
[2019-10-20 06:26] LABS: Glucose Point of Care 313 mg/dL (70-110)
[2019-10-20] MEDS: ropinirole 2 mg Tablet PO (08:03)
[2019-10-20] MEDS: ropinirole 1 mg Tablet PO (08:03)
[2019-10-20] MEDS: ARIPiprazole 10 mg Tablet PO (08:03)
[2019-10-20] MEDS: magnesium oxide 400 mg tablet PO (08:03)
[2019-10-20] MEDS: acyclovir 400 mg Tablet 200 MG PO (08:03)
[2019-10-20] MEDS: pregabalin 150 mg Capsule PO ×2 (08:03→12:14)
[2019-10-20] MEDS: clopidogrel 75 mg Tablet PO (08:04)
[2019-10-20] MEDS: aspirin 81 mg Chew Tablet PO (08:04)
[2019-10-20] MEDS: pantoprazole DR 40 mg Tablet PO (08:04)
[2019-10-20] MEDS: cetirizine 10 mg Tablet PO (08:04)
[2019-10-20] MEDS: amlodipine 10 mg Tablet PO (08:04)
[2019-10-20] MEDS: hyDRALAzine 25 mg Tablet PO (08:04)
[2019-10-20] MEDS: isosorbide mononitrate ER 30 mg Tablet 90 MG PO (08:04)
[2019-10-20] MEDS: desvenlafaxine 50 mg Tablet PO (08:14)
[2019-10-20 11:26] LABS: Glucose Point of Care 358 mg/dL (70-110)
[2019-10-20] MEDS: cefTRIAXone 1,000 MG in sodium chloride 0.9% (plus) 50 ML 100 MG IV (12:13)
[2019-10-20] MEDS: enoxaparin 40 mg/0.4 mL Syringe SUBCUT (12:14)
--- NOTE | 2019-10-20 12:31 | PM.DCS ---
Discharge Providers Date of Admission: 10/18/19 14:52 Date of Discharge: October 20, 2019 Attending Provider at Admission: Kayla Higgins DO Attending Provider at Discharge: Kayla Higgins DO Primary Care Provider: MAGDIEL Vega Diagnoses at Discharge Discharge Diagnosis (1) Acute pyelonephritis: Status: Acute (2) Atherosclerosis of coronary artery of [place] heart with angina pectoris: Status: Acute Qualifiers: Coronary Disease-Associated Artery/Lesion type: [place] artery Qualified Code(s): I25.119 - Atherosclerotic heart disease of [place] coronary artery with unspecified angina pectoris (3) Essential hypertension: Status: Acute (4) Obstructive sleep apnea: Status: Acute (5) Vascular dementia without behavioral disturbance: Status: Acute (6) Diabetes: Status: Chronic Qualifiers: Diabetes mellitus type: type 2 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 She was noted to have multiple medication adverse reactions including an adverse reaction which was unknown to Dieudonne in the past. Due to the nature of her infection she was placed on IV antibiotics, Rocephin. Patient did well with the dose of medication and did not have any allergic reaction. She continued to have intermittent fevers and therefore was transitioned to inpatient stay. She was continued on IV antibiotics and urine culture showed E. coli. Patient reported increasing loose stools and C. difficile toxin was checked and returned positive. She was then started on oral vancomycin. She continued to improve and on date of discharge she denied any abdominal pain, no nausea or vomiting and tolerated diet well. Stools had decreased in frequency. Physical Exam Const: COMMON NORMALS: oriented x3 and alert GENERAL APPEARANCE: cooperative ORIENTATION/CONSCIOUSNESS: Yes awake, Yes oriented to person, Yes oriented to place and Yes oriented to time HENMT: COMMON NORMALS: normocephalic and head/scalp atraumatic HEAD & SCALP: normocephalic and atraumatic Eye: COMMON NORMALS: PERRL PUPIL: Yes PERRL Neck/C-Spine: COMMON NORMALS: supple GENERAL: Yes normal visual inspection Resp: COMMON NORMALS: normal respiratory effort and clear to auscultation bilaterally EFFORT & INSPECTION: Yes able to speak in complete sentences AUSCULTATION: clear to auscultation bilaterally, no rhonchi and no wheezes Cardio: COMMON NORMALS: regular rate, regular rhythm and no murmurs RATE: regular rate RHYTHM: regular rhythm GI: COMMON NORMALS: soft to palpation PALPATION: Yes soft OTHER: Normal bowel sounds, no guarding or rigidity, no tenderness to palpation Extremity: COMMON NORMALS: no clubbing, cyanosis or edema and no calf tenderness Neuro: COMMON NORMALS: oriented x3, CN's II-XII intact bilaterally, moves all extremities and no focal motor deficits SENSORIUM/ORIENTATION: Yes alert, Yes oriented to person, Yes oriented to place and Yes oriented to time SPEECH: speech normal Psych: COMMON NORMALS: mental status grossly normal and cooperative Skin: COMMON NORMALS: no rashes or lesions noted GENERAL SKIN EXAM: no rashes or lesions noted Discharge Data Data Completed and Pending: Completed Studies During Hospitalization Category Date Time Status US renal BI* [id number] Stat Ultrasound 10/17/19 08:04 Completed Pending at discharge Category Date Time Status Blood Culture Sta t Lab 10/17/19 07:18 Results Labs from last 24 hours 10/20/19 10/20/19 10/19/19 11:10 06:18 20:29 POC Glucose 358 313 273 10/19/19 16:40 POC Glucose 200 Vitals: Last Vital Signs Temp 98.5 F 10/20/19 11:31 Pulse 81 10/20/19 11:31 Resp 18 10/20/19 11:31 BP 128/66 10/20/19 11:31 Pulse Ox 96 10/20/19 11:31 Discharge Plan Discharge Patient Disposition: Home, Self-Care Condition: Stable Prescriptions: New vancomycin 125 mg capsule 125 mg PO QID 20 Days Qty: 80 RF: 0 cefixime 400 mg capsule 400 mg PO DAILY 6 Days Qty: 6 RF: 0 Continued hydrocodone-acetaminophen [Lorcet (hydrocodone)] 5-325 mg tablet 1 tab PO Q4H PRN (Reason: Pain) RF: 0 cetirizine [Zyrtec] 10 mg tablet 10 mg PO DAILY 30 Days Qty: 1 RF: 2 rosuvastatin 10 mg tablet 10 mg PO DAILY RF: 0 melatonin 10 mg capsule 10 mg PO BEDTIME RF: 0 fluticasone propion-salmeterol 500-50 mcg/dose blister with device 1 inh INHALATION BID RF: 0 aspirin 81 mg tablet,chewable 81 mg PO DAILY RF: 0 pregabalin [Lyrica] 150 mg capsule See Rx Instructions .ROUTE .COMPLEX RF: 0 hydralazine 25 mg tablet 25 mg PO TID Qty: 360 RF: 3 sucralfate [Carafate] 1 gram tablet 1 gm PO BID PRN (Reason: gerd) Qty: 60 RF: 2 ergocalciferol (vitamin D2) [Drisdol] 1,250 mcg (50,000 unit) capsule 1,250 mcg PO .weekly Qty: 4 RF: 1 magnesium oxide 400 mg magnesium capsule 400 mg PO BID Qty: 60 RF: 2 (DME) lancets [OneTouch Delica Lancets] 30 gauge misc See Rx Instructions .ROUTE .MEDSUPPLY Qty: 100 RF: 5 (DME) diabetic supplies, miscellan. Misc See Rx Instructions .ROUTE .MEDSUPPLY Qty: 120 RF: 5 nitroglycerin 0.4 mg tablet, sublingual 0.4 mg SUBLINGUAL Q5M PRN (Reason: chest pain) Qty: 30 RF: 1 aripiprazole 10 mg tablet 10 mg PO DAILY Qty: 30 RF: 5 Novolog Flexpen U-100 Insulin 100 unit/mL (3 mL) insulin pen 15 unit SUBCUT TID 30 Days Qty: 15 RF: 5 isosorbide mononitrate 30 mg tablet extended release 24 hr 90 mg PO DAILY Qty: 270 RF: 3 desvenlafaxine succinate [Pristiq] 50 mg tablet extended release 24 hr 50 mg PO DAILY Qty: 30 RF: 2 Januvia 100 mg tablet 100 mg PO DAILY 30 Days Qty: 30 RF: 1 ropinirole 3 mg tablet 3 mg PO DAILY Qty: 30 RF: 2 acyclovir 200 mg capsule 200 mg PO BID Qty: 60 RF: 2 amlodipine 10 mg tablet 10 mg PO DAILY Qty: 90 RF: 3 meclizine 25 mg tablet 25 mg PO TID PRN (Reason: dizziness) Qty: 30 RF: 0 pantoprazole 40 mg tablet,delayed release (DR/EC) 40 mg PO DAILY Qty: 30 RF: 5 trazodone 50 mg tablet 50 mg PO BEDTIME RF: 0 Klor-Con 10 10 mEq tablet extended release See Rx Instructions .ROUTE .COMPLEX RF: 0 furosemide 20 mg tablet See Rx Instructions .ROUTE .COMPLEX RF: 0 Tresiba U-100 Insulin 100 unit/mL solution 100 unit SUBCUT BEDTIME RF: 0 albuterol sulfate 90 mcg/actuation Hfa Aerosol Inhaler 2 puff INHALATION QID PRN (Reason: Shortness Of Breath) RF: 0 Discontinued clopidogrel 75 mg tablet 75 mg PO DAILY Qty: 90 RF: 3 Discharge Orders: Discharge Order (Routine); Ordered 10/20/19 Ordered By: Kayla Higgins Referrals: ABELINO Alegria, [facility] ATTENDANT [Primary Care Provider] - 1-3 days Discharge Diet: Advance as tolerated, Cardiac and Diabetic Discharge Activity: Increase activity as tolerated Activity Restrictions/Additional Instructions: Started on oral vancomycin 4 times a day for total of 20 days Recommended to take probiotic and eat yogurt with active cultures, while being mindful of blood glucose readings Continue on antibiotic as prescribed and noted above for UTI Follow-up with primary care provider in 3 to 5 days Call your physician or present to the ED for any acute illness or concern Continue with home oxygen as previously prescribed Discharge to home with in-home services Discharge Attestations Time Spent in Discharge Care*: greater than 30 min Quality Metrics Clinical Quality Measures During this hospital stay, did patient experience: None Coding Level of Care Code Acute Sales Service Supervisor for g Fwd Diagnoses Acute pyelonephritis N10 Atherosclerosis of coronary artery of [place] heart with angina pectoris I25.119 Coronary Disease-Associated Artery/Lesion type: [place] artery Essential hypertension I10 Obstructive sleep apnea G47.33 Vascular dementia without behavioral disturbance F01.50 Diabetes E11.42; Z79.4 Diabetes mellitus type: type 2 Diabetes mellitus shelter insulin use: with shelter use Diabetes mellitus complication status: with neurologic complications Diabetes mellitus complication detail: with polyneuropathy
== END 2019-10-20 17:37 | disposition home or self-care (01) | DRG 690 ==
LOC: ER 09:52 → MEDSURG 09:53
PROVIDERS: Admitting Provider Family Medicine; Emergency Provider Family Medicine; Family Provider Nurse Practitioner Family; PCP Nurse Practitioner Family; Visit Provider Family Medicine
DX: N10 Acute pyelonephritis (principal); E11.9 Type 2 diabetes mellitus without complications; I10 Essential (primary) hypertension; G47.33 Obstructive sleep apnea (adult) (pediatric); Z88.0 Allergy status to penicillin; I25.119 Atherosclerotic heart disease of native coronary artery with unspecified angina pectoris; E78.5 Hyperlipidemia, unspecified; F01.50 Vascular dementia, unspecified severity, without behavioral disturbance, psychotic disturbance, mood disturbance, and anxiety; N39.0 Urinary tract infection, site not specified; Z79.4 Long term (current) use of insulin; E11.42 Type 2 diabetes mellitus with diabetic polyneuropathy; E11.49 Type 2 diabetes mellitus with other diabetic neurological complication; Z79.02 Long term (current) use of antithrombotics/antiplatelets; B96.20 Unspecified Escherichia coli [E. coli] as the cause of diseases classified elsewhere; Z79.891 Long term (current) use of opiate analgesic; Z79.82 Long term (current) use of aspirin
CPT/HCPCS: 12345; 36415; 36416; 76770; 80053; 81001; 82962; 83690; 85025; 87040; 87077; 87086; 87186; 87493; 94640; 94660; 96372; 96375; 99282; G0378; J0696; J1200; J1650; J1815; J2270; J2405; J3370; J7030; J7040; J8499

== ENCOUNTER 2019-10-17 06:43 | Emergency (ER) | payer MEDICAID, SELFPAY | END 2019-10-17 10:03 | disposition admitted as inpatient to this hospital (09) | LOC: ER 10-19 09:57 | PROVIDERS: Emergency Provider Family Medicine; Family Provider Nurse Practitioner Family; PCP Nurse Practitioner Family | DX: N10 Acute pyelonephritis (principal); E11.9 Type 2 diabetes mellitus without complications; E78.5 Hyperlipidemia, unspecified; I10 Essential (primary) hypertension; F03.90 Unspecified dementia, unspecified severity, without behavioral disturbance, psychotic disturbance, mood disturbance, and anxiety | CPT/HCPCS: 12345; 36415; 36416; 76770; 80053; 81001; 82962; 83690; 85025; 87040; 87086; 94640; 94660; 96372; 96374; 96375; 99282; 99285; G0378; J0696; J1200; J1650; J1815; J2270; J2405; J7030; J7040; J8499 ==

== ENCOUNTER → 2019-11-09 11:56 | Outpatient (BNVA) | payer MEDICAID, SELFPAY | PROVIDERS: Family Provider Nurse Practitioner Family; PCP Nurse Practitioner Family; Visit Provider Nurse Practitioner Family | DX: H66.90 Otitis media, unspecified, unspecified ear; E55.9 Vitamin D deficiency, unspecified; E11.42 Type 2 diabetes mellitus with diabetic polyneuropathy; Z79.4 Long term (current) use of insulin; I10 Essential (primary) hypertension; M54.5 Low back pain; M79.605 Pain in left leg; E78.5 Hyperlipidemia, unspecified; F33.42 Major depressive disorder, recurrent, in full remission; R19.7 Diarrhea, unspecified | CPT/HCPCS: 80053; 80061; 81001; 82306; 83036; 84443; 84681; 85025; 87077; 87086; 87186 ==

== ENCOUNTER → 2019-12-14 07:28 | Outpatient (BNVA) | payer MEDICAID, SELFPAY ==
[2019-11-22 13:45] VITALS: BP 120/80; BMI 50.5
== END ==
PROVIDERS: Family Provider Nurse Practitioner Family; PCP Nurse Practitioner Family; Visit Provider Psychiatry & Neurology Psychiatry
DX: F33.42 Major depressive disorder, recurrent, in full remission (principal); G47.00 Insomnia, unspecified
CPT/HCPCS: 99213

== ENCOUNTER → 2019-12-21 10:30 | Outpatient (BNVA) | payer MEDICAID, SELFPAY ==
[2019-11-22 13:45] VITALS: BP 120/80; BMI 50.5
== END ==
PROVIDERS: Family Provider Nurse Practitioner Family; PCP Nurse Practitioner Family; Visit Provider Nurse Practitioner Family
DX: N39.0 Urinary tract infection, site not specified (principal); J44.9 Chronic obstructive pulmonary disease, unspecified; E11.42 Type 2 diabetes mellitus with diabetic polyneuropathy; Z79.4 Long term (current) use of insulin
CPT/HCPCS: 81001

== ENCOUNTER → 2019-12-22 09:46 | Outpatient (BNVA) | payer MEDICAID, SELFPAY ==
[2019-11-22 13:45] VITALS: BP 120/80; BMI 50.5
== END ==
PROVIDERS: Family Provider Nurse Practitioner Family; PCP Nurse Practitioner Family; Visit Provider Specialist
DX: G43.711 Chronic migraine without aura, intractable, with status migrainosus (principal)
CPT/HCPCS: 64615; J0585

== ENCOUNTER 2019-12-27 13:21 | Outpatient (CLI) | payer MEDICAID, SELFPAY ==
[2019-11-22 13:45] VITALS: BP 120/80; BMI 50.5
--- NOTE | 2019-12-27 13:25 | US_ITS ---
WS: [id number] RENAL ULTRASOUND HISTORY: CHRONIC KIDNEY DZ/STAGE 3 COMPARISON: 10/17/2019 TECHNIQUE: 2-D and color Doppler imaging of the kidney submitted. Right kidney: 10.9 cm x 4.6 cm x 5.8 cm. Normal echogenicity with no hydronephrosis or mass. Left kidney: 10.7 cm x 4.9 cm x 5.9 cm. Normal echogenicity with no hydronephrosis or mass. Small exophytic cyst from the lower pole measures 1.9 x 1.4 x 1.5 cm. There is an additional poorly visualized cyst from the upper pole measuring 1.6 x 1.3 x 1.3 cm. Aorta: Normal. Urinary Bladder: Normal distention. US/US renal BI* [id number] IMPRESSION: 1. No hydronephrosis. 2. Small cortical cystS LEFT kidney.
== END 2019-12-27 13:22 | disposition home or self-care (01) ==
LOC: RAD 13:24
PROVIDERS: PCP Nurse Practitioner Family; Visit Provider Internal Medicine Nephrology
DX: N18.3 Chronic kidney disease, stage 3 (moderate) (principal); Q61.01 Congenital single renal cyst
CPT/HCPCS: 76770

== ENCOUNTER → 2020-02-08 09:49 | Outpatient (BNVA) | payer MEDICAID, SELFPAY ==
[2020-02-08 09:04] VITALS: BP 120/80; BMI 50.5
== END ==
PROVIDERS: PCP Nurse Practitioner Family; Visit Provider Nurse Practitioner Family
DX: D64.9 Anemia, unspecified (principal); E11.42 Type 2 diabetes mellitus with diabetic polyneuropathy; I10 Essential (primary) hypertension; Z79.4 Long term (current) use of insulin; E78.5 Hyperlipidemia, unspecified; E55.9 Vitamin D deficiency, unspecified; J44.9 Chronic obstructive pulmonary disease, unspecified
CPT/HCPCS: 80053; 80061; 81003; 82306; 82607; 82746; 83036; 83550; 83735; 84443; 85025; 87077; 87086; 87186

== ENCOUNTER → 2020-03-15 09:41 | Outpatient (BNVA) | payer MEDICAID, SELFPAY ==
[2020-02-08 09:04] VITALS: BP 120/80; BMI 50.5
== END ==
PROVIDERS: PCP Nurse Practitioner Family; Visit Provider Specialist
DX: G43.711 Chronic migraine without aura, intractable, with status migrainosus (principal)
CPT/HCPCS: 64615; J0585

== ENCOUNTER → 2020-03-16 07:40 | Outpatient (BNVA) | payer MEDICAID, SELFPAY ==
[2020-02-08 09:04] VITALS: BP 120/80; BMI 50.5
== END ==
PROVIDERS: PCP Nurse Practitioner Family; Visit Provider Psychiatry & Neurology Psychiatry
DX: F33.42 Major depressive disorder, recurrent, in full remission (principal); F01.50 Vascular dementia, unspecified severity, without behavioral disturbance, psychotic disturbance, mood disturbance, and anxiety; G47.33 Obstructive sleep apnea (adult) (pediatric); F41.1 Generalized anxiety disorder
CPT/HCPCS: 99213

== ENCOUNTER → 2020-03-20 12:02 | Outpatient (BNVA) | payer MEDICAID, SELFPAY ==
[2020-02-08 09:04] VITALS: BP 120/80; BMI 50.5
== END ==
PROVIDERS: PCP Nurse Practitioner Family; Visit Provider Nurse Practitioner Family
DX: N39.0 Urinary tract infection, site not specified (principal); D51.9 Vitamin B12 deficiency anemia, unspecified; G25.81 Restless legs syndrome; E78.2 Mixed hyperlipidemia; G47.00 Insomnia, unspecified; R30.0 Dysuria; E66.01 Morbid (severe) obesity due to excess calories; Z68.43 Body mass index [BMI] 50.0-59.9, adult; E11.42 Type 2 diabetes mellitus with diabetic polyneuropathy; Z79.4 Long term (current) use of insulin
CPT/HCPCS: 80053; 81003; 87077; 87086; 87186

== ENCOUNTER 2020-04-13 07:25 | Outpatient (CLI) | payer MEDICAID, SELFPAY ==
[2020-02-08 09:04] VITALS: BP 120/80; BMI 50.5
--- NOTE | 2020-04-13 08:02 | ECG_ITS ---
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 Interpretive Statements NAME OF STUDY: LEXISCAN SESTAMIBI STRESS TEST INDICATION: Chest Pain, PROCEDURE: At the baseline, the EKG revealed normal sinus rhythm with a poor R wave progression. No significant ST-T changes. The baseline blood pressure was 157/79 mm Hg with a heart rate of 61 beats/min. Lexiscan was infused over a period of 20 seconds. A total of 0.4 milligrams of Lexiscan was infused. The stress phase was continued for a total of 5 minutes. Heart rate at the end of the stress phase was 75 with a blood pressure 173/81. The EKG at the peak infusion revealed no significant changes. Sestamibi was injected 20 seconds after the Lexiscan infusion. Blood pressure at the end of the recovery phase was 167/77 with a heart rate of 73 per minute. CONCLUSION: 1. No significant EKG changes with the LexiScan infusion 2. No LexiScan induced chest pain or cardiac arrhythmia 3. Normal blood pressure and heart rate response 4. Sestamibi/sestamibi perfusion scan pending; see separate report. Electronically Signed On 04-13-2020 21:14:24 CDT by Elizabeth Winters M.D. [email or web address]
--- NOTE | 2020-04-13 08:02 | NMCV_ITS ---
NM luis miguel perf SPECT r/s* [id number] Shweta Morgan Age: 60 Gender: F : 1960 Exam Date: 04/13/2020 08:55 Ordering Phys: Elizabeth Winters MD ([email or web address]) Technologist: GARETH Gonzalez Exam Location: [facility] Indications: CHEST PAIN STRESS TEST [facility] IMAGE PROTOCOL Rest/Stress 1 Lexiscan Day Radiopharmaceutical Dose (mCi) Administration Site Administered by Rest: Tc-99m 10.7 IV GARETH Pedraza Sestamibi Stress:Tc-99m 32.6 IV GARETH Pedraza Sestamibi Rest: 13-Apr-2020 60 Discovery 630 Stress: 13-Apr-2020 30 Discovery 630 0.4mg Lexiscan. Images obtained in supine and prone position. SPECT RESULTS Technical Quality: Good Raw Data Analysis: Breast attenuation Image Corrections: No attenuation or motion correction applied Summed Stress Score: 8 Summed Rest Score: 2 Summed Difference Score: 6 PERFUSION FINDINGS Moderate area of decreased tracer uptake in the basal and mid anterolateral, mid inferolateral, apical lateral, apical anterior and LV apex. Significant reversibility was noted in these regions at rest. FUNCTIONAL RESULTS (calculated via Gated SPECT) Stress Image LV EF (%): 63 Stress EDV (mL):105 TID: 0.94 Stress ESV (mL):39 FUNCTIONAL FINDINGS: Segmental wall motion analysis revealing no gross wall motion of normalities IMPRESSIONS 1. Myocardial perfusion imaging revealing a moderate area of moderately decreased tracer uptake in the anterolateral, inferolateral and apical regions with significant reversibility, suggestive of ischemia predominantly in the distribution of the left circumflex artery with some involvement of the distal right coronary artery and left anterior descending artery. 2. Normal LV ejection fraction of 63%. 3. LV wall motion analysis revealing no gross wall motion normalities. 4. Normal LV volume. Compared to the previous study from 07/08/2018, the ischemic burden in the distribution of the left circumflex artery appears to be more significant Dr Elizabeth Winters MD [facility] (Electronically Signed) Final Date: 13 April 2020 14:52 S
[2020-04-13 08:19] VITALS: BMI 54.3
[2020-04-13 09:58] VITALS: BP 178/81; PULSE 79
[2020-04-13] MEDS: regadenoson 0.4 Mg/5 ml Syringe IVP (09:58)
== END 2020-04-13 07:26 | disposition home or self-care (01) ==
LOC: RAD 07:28 → CDL 07:29
PROVIDERS: PCP Nurse Practitioner Family; Visit Provider Internal Medicine Cardiovascular Disease
DX: R07.9 Chest pain, unspecified (principal)
CPT/HCPCS: 78452; 93017; A9500; J2785

== ENCOUNTER → 2020-04-17 00:01 | Outpatient (BNVA) | payer MEDICAID, SELFPAY ==
[2020-02-08 09:04] VITALS: BP 120/80; BMI 50.5
== END ==
PROVIDERS: PCP Nurse Practitioner Family; Visit Provider Nurse Practitioner Family
DX: E11.42 Type 2 diabetes mellitus with diabetic polyneuropathy (principal); Z79.4 Long term (current) use of insulin; R30.0 Dysuria; R31.9 Hematuria, unspecified
CPT/HCPCS: 80053; 81003; 87077; 87086; 87184

== ENCOUNTER → 2020-04-18 08:59 | Outpatient (BNVA) | payer MEDICAID, SELFPAY ==
[2020-02-08 09:04] VITALS: BP 120/80; BMI 50.5
== END ==
PROVIDERS: PCP Nurse Practitioner Family; Referring Provider Nurse Practitioner Family; Visit Provider Internal Medicine
DX: E11.42 Type 2 diabetes mellitus with diabetic polyneuropathy (principal); E11.59 Type 2 diabetes mellitus with other circulatory complications; I25.10 Atherosclerotic heart disease of native coronary artery without angina pectoris; E11.65 Type 2 diabetes mellitus with hyperglycemia; E78.2 Mixed hyperlipidemia; I10 Essential (primary) hypertension; N39.0 Urinary tract infection, site not specified
CPT/HCPCS: 99204

== ENCOUNTER → 2020-05-10 09:21 | Outpatient (BNVA) | payer MEDICAID, SELFPAY ==
[2020-02-08 09:04] VITALS: BP 120/80; BMI 50.5
== END ==
PROVIDERS: PCP Nurse Practitioner Family; Visit Provider Internal Medicine Cardiovascular Disease
DX: Z20.828 Contact with and (suspected) exposure to other viral communicable diseases (principal); Z01.812 Encounter for preprocedural laboratory examination
CPT/HCPCS: 87635

== ENCOUNTER → 2020-05-11 10:06 | Outpatient (BNVA) | payer MEDICAID, SELFPAY ==
[2020-02-08 09:04] VITALS: BP 120/80; BMI 50.5
== END ==
PROVIDERS: PCP Nurse Practitioner Family; Visit Provider Internal Medicine Cardiovascular Disease
DX: Z20.828 Contact with and (suspected) exposure to other viral communicable diseases (principal); Z01.812 Encounter for preprocedural laboratory examination
CPT/HCPCS: 80048; 85025; 85610

== ENCOUNTER 2020-05-14 10:48 | Observation (INO) | payer MEDICAID, SELFPAY ==
[2020-02-08 09:04] VITALS: BP 120/80; BMI 50.5
[2020-05-14] VITALS (44 sets, daily range): BP systolic 110–193; BP diastolic 61–116; PULSE 57–76; RESP 14–23; TEMP 36.6–36.7; O2SAT 93–99; BMI 52.1
[2020-05-14] MEDS: diphenhydrAMINE 50 mg Capsule PO (06:40)
--- NOTE | 2020-05-14 07:00 | XACV_ITS ---
Ht: 150 cm Wt: 117 kg BSA: 2.29 m2 Gender: Female : 1960 Any Known Allergies: Other Exam Priority: Routine Procedure(s): Procedure Description: Diagnostic procedure Procedure Description: PCI procedure Procedure Description: Left Heart Catheterization Procedure Description: Drug Eluting Coronary Stent Procedure Description: PTCA Procedure Description: Coronary Angiography Diagnostic Cath Status: Elective Diagnostic Findings * No significant disease noted in the Left Main, LAD, Circumflex, or RCA coronary arteries. * Mid Left Anterior Descending Coronary Artery: has lesion. * Coronary angiography shows right dominance. * Patient has no left main. 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 The left anterior descending artery was found to have a long stented area involving the proximal and mid segment. There was high-grade in-stent stenosis near to the distal end of the stented segment. Mid LAD appears to bifurcates. The artery appears to taper off towards the LV apex. The first and the second diagonal branches were found to have some ostial narrowing and appears to come off the stented segments of the artery. No other significant stenotic lesions were noted. * The circumflex artery is a very small caliber vessel which originates at the ostium of the right coronary artery. Mild diffuse intimal irregularities are noted in the vessel. No significant stenotic lesions. * The right coronary artery is a large caliber dominant vessel which was found to have no significant stenotic lesions. The PLV branch of the artery was found to have minimal intimal irregularities. No significant other lesions. PCI Status: Elective PCI Indication: New Onset Angina <= 2 months Interventional Findings * Successful PCI to mid LAD. Lesion was deployment of MARIMAR MDT 2.75 x 15 mm stent posted at high JENIFER of 9 mm. Stent was then post-dilated with serial dilatation of NC EUPHORA 2.75x8mm a at 14 JENIFER in its entire length to ensure proper approximation. Excellent angiographic result with ASA-3 flow was achieved. . Conclusions 1. No significant disease noted in the Left Main, LAD, Circumflex, or RCA coronary arteries. 2. This is a 60-year-old white female with multiple medical problems including type 2 diabetes, high blood pressure, dyslipidemia, coronary artery disease with previous PCI, presented with increasing episodes of chest pains. She had a myocardial perfusion imaging revealing some areas of reversible defect in the anterolateral and lateral segments. In view of her ongoing symptoms, in order to further evaluate her coronary status, a repeat cardiac catheterization was recommended. Patient underwent left heart catheterization with a left and right coronary angiogram today. The findings are as follows. 3. 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 The left and descending artery was found to have a long stented area involving the proximal and mid segment. There was a high-grade lesion of around 80% involving the distal stented segment. Minimal ostial narrowing in the diagonal branches . Right coronary artery and the circumflex arteries were found to have minimal intimal irregularities with no significant stenotic lesions. The LVEDP was 25 mmHg. Based on the angiographic findings, it was thought to be appropriate to consider PCI of the in-stent stenosis in the LAD. I discussed and reviewed the cardiac catheterization data with the , who agreed with this plan and took over further management of this patient at this point. Recommendations * 1-Return to inpatient for close monitoring and routine cath care 2-Risk factor modification for secondary prevention 3-Statin and aspirin 81 mg life--long, if tolerated 4-Continue Plavix 75mg p.o. daily for at least one year. We will assess at the end of one year again to continue if further or not 5-Continue optimal medical management 6-Follow up with Dr. Winters in four weeks and your primary care in 10 days. Interventional RX Recommendation: PCI w/o planned CABG Diagnostic RX Recommendation: PCI w/o planned CABG LV EDP: 25 mmHg Left Ventriculography Findings: * LV gram was not performed because of the patient's history of renal insufficiency. Pressures Phase:Rest AO : 233 / 106 ( 104 ) @ 3:55:00 AM 106 / 71 ( 89 ) @ 3:58:00 AM 117 / 92 ( 99 ) @ 4:01:00 AM 155 / 72 ( 103 ) @ 4:05:00 AM 153 / 68 ( 101 ) @ 4:05:00 AM 142 / 74 ( 103 ) @ 4:26:00 AM 152 / 89 ( 113 ) @ 4:34:00 AM LV : 155 / -8 / @ 4:04:00 AM 156 / -5 / @ 4:05:00 AM Valves Phase:DefaultPhase AV : 3.0 @ 10:47:32 AM 3.0 @ 10:47:32 AM AV Mean Gradient: 7.0 @ 10:47:32 AM Clinical Evaluation EBL: 5mL-10mL Procedural Details Procedure Consent Obtained. Pre-Procedure Time Out. Identified patient by full name and date of as verbalized by the patient/guarantor. Does the consent match the physician's order: Yes. Accurate & Complete Informed Consent: Yes. Inpatient/Outpatient History & Physical on Chart: Yes. If H&P is completed, is and addenduem needed: N/A; If yes, is the addendum complete: N/A. Visualize and Verify Site with Patient/Guarantor: N/A. Relevant Radiology Images available: Yes. Pre-op teaching completed and patient verbalized understanding. The risks, benefits, and alternatives of sedation and/or procedure were discussed by physician. The patient agrees to continue. Procedure started. Correct patient, site and procedure confirmed by cath team. PERRLA. Strong, equal hand machine shop instructor bilaterally. Lungs clear x 5 lobes. IV Site on Arrival: 20 gauge in the right anticubital. IV Fluids: 0.9% NaCl at KVO. 0 mL infused prior to earthmoving labourer. Pre Procedural Pulses: bilateral dorsalis pedis was 3+. Pre Procedural Pulses: bilateral posterior tibial was 1+. Pre Procedural Pulses: bilateral radial was 3+. Oxygen started at 2liters/min via nasal canula. bilateral groins was prepped with chloroprep then draped in the usual sterile fashion. Physician notified. Baseline sample Acquired. HR: 59 BPM. Equipment: 6F - Femoral. Cardiac Cath Pack. ACIST Manifold Kit Model BT 2000. Heparinized Saline (2 units/mL), 1000 mL bag. Kit, Micropuncture. Physician arrived. Physician scrubbed in. Immediate Pre-Procedure Time Out. Correct Patient: Yes; Correct Procedure: Yes; Correct Site: Yes; Correct Patient Position: Yes; Correct Supplies: Yes; Dried Flammable Prep: Yes; Blood Products Available: No;. Lidocaine 1% infiltrated to the right groin. Arterial access obtained with micropuncture set. A 5 italian JL4 catheter in over wire. Multiple views taken of left coronary artery. Catheter out. A 5 italian JR4 catheter in over wire. Multiple views taken of right coronary artery. Dr. Gandhi called. Catheter out. A 5 italian Angled Pig catheter in over wire. EDP Sample taken: LV 155/-9,29; HR: 57 BPM; SpO2: 97%. Pullback taken: LV 156/-6,28; AO 155/72(103); Mean: 7mmHg, Peak to Peak: 3mmHg, SEP: 15sec/min; HR: 56 BPM; SpO2: 97%. Catheter out. Side port of sheath flushed with Normal Saline flush to maintain patency. Perry Gandhi arrived. Inventory is Advanced Sports Logicgar XT .[address] Guidewire. Dr. Gandhi scrubbed in to perform intervention. Patient's family updated. [facility] Clinical Fraility Score: 4: Vulnerable. Dental Patient Coordinator Indications: Worsening Angina. Chest Pain Symptom Assessment: Typical Angina Symptoms. Cardiovascular Instability: No. 5fr sheath exchanged for a 6fr sheath. 6 italian XB 3 guide catheter was inserted over the wire. Parker guidewire was advanced through the guide catheter to lesion in the mid LAD. Multiple views taken of left coronary artery. Inflation Number : 1 A PARISH Lui MARIMAR 2.75X15 DENI -Lot Number# [id number] exp 02-11-2022 was prepped and advanced across the Mid LAD. The stent was deployed at 9 JENIFER for 0:33 seconds. Stent balloon out over wire. Inflation number : 2 A PARISH THOMPSON EUPHORA RX [id number] BALLOON was prepped and advanced across the Mid LAD , then inflated to 10 JENIFER for 0:28 seconds. Inflation number: 3 The MDT NC EUPHORA RX [id number] BALLOON was reinflated across the Mid LAD, to 7 JENIFER for 0:17 seconds. Inflation number: 4 The MDT NC EUPHORA RX [id number] BALLOON was reinflated across the Mid LAD, to 14 JENIFER for 0:13 seconds. Results checked. Balloon and wire out. Guide catheter out. A Suture was successful obtaining hemostatsis at the Right Femoral artery insertion site. Sheath(s) sutured into position with 2-0 silk and sterile 4x4's and Op-site applied over the site. No oozing or signs and symptoms of hematoma noted. Arterial sheath flushed and connected to tranducer and pressure bag with heparinized saline. PERRLA. Strong, equal hand machine shop instructor bilaterally. No VTE prophylaxis required. Fluoro: 83:00. Contrast type used: Omnipaque 300 mgI/mL, 500 mL bottle. [id number]. Complications: none. Estimated blood loss: 5mL-10mL. Procedure completed. ACT drawn. Results 190 seconds. Therapeutic limits - pre-heparin administration 90-150 seconds and monitoring heparin during a vascular procedure >250 seconds. PCI Indication: New Onset Angina. Post-op diagnosis: PCI to mid LAD. Medication's Wasted: Lidocaine 1% = 5 mL. Medication's Wasted: Heparin = 3500 units. Medication's Wasted: Other = hydralazine 10 mg. Total IV fluids: 100 mL. Patient transferred by bed to 1st floor. Vital chart was stopped. Access Site Site: Right Femoral artery Sheath Size: 5 Fr Hemostasis Success: Unsuccessful Site: Right Femoral artery Sheath Size: 6 Fr Hemostasis Method: Suture Hemostasis Success: Successful Procedure Medications Start: 9:38 AM Stop: 9:38 AM Medication: Versed Amount: 1 mg Route: I.V. Start: 9:39 AM Stop: 9:39 AM Medication: Fentanyl Amount: 50 mcg Route: I.V. Start: 9:53 AM Stop: 9:53 AM Medication: Heparin Amount: 1500 units Route: I.V. Start: 9:54 AM Stop: 9:54 AM Medication: Versed Amount: 1 mg Route: I.V. Start: 9:54 AM Stop: 9:54 AM Medication: Fentanyl Amount: 50 mcg Route: I.V. Start: 10:18 AM Stop: 10:18 AM Medication: Heparin Amount: 7000 units Route: I.V. Start: 10:40 AM Stop: 10:40 AM Medication: Plavix Amount: 300 mg Route: P.O. Start: 10:42 AM Stop: 10:42 AM Medication: Heparin Amount: 2000 units Route: I.V. Start: 10:45 AM Stop: 10:45 AM Medication: Hydralazine Amount: 10 mg Route: I.V. I, the attending physician, have reviewed and verified all procedure medications. Yes, all medications given per verbal order History/Risk Factors Hypertension: Yes Dyslipidemia: Yes Prior Interventions PCI: Yes Report Signatures Interventional Workflow Finalized by Yamile Gandhi MD on 05/31/2020 11:16 AM Diagnostic Workflow Finalized by Dr Elizabeth Winters MD FAC on 05/15/2020 11:04 AM
--- NOTE | 2020-05-14 09:39 | W.PM.OPSUD ---
Surgery/Procedure H&P Update DATE OF PROCEDURE: May 14, 2020 DATE H&P PERFORMED: 04/19/20 H&P UPDATE INFORMATION: I have reviewed H&P completed within last 30 days, I have examined patient prior to procedure and No changes to prior documentation PLANNED PROCEDURE: Operation Date: 05/14/20 07:00 Proposed Procedures p Cardiac Catheterization R94.39 35700(Left) - Elizabeth Winters MD PATIENT REASSESSED PRIOR TO SEDATION, WITH NO CHANGE NOTED: Yes PHYSICAL EXAM: alert, oriented x 3, clear to auscultation bilaterally and regular rate & rhythm AIRWAY EVAL/ANESTHESIA PLAN: normal airway, see other exam findings, ASA III, Monitored Anesthesia, Local Anesthesia, Risks, benefits & alternatives of sedation and/or procedure discussed and Patient agrees to continue as planned
[2020-05-14] MEDS: ipratropium-albuterol 3 mL Neb INHALATION ×3 (11:57→20:26)
[2020-05-14] MEDS: ARIPiprazole 10 mg Tablet PO (12:16)
[2020-05-14] MEDS: cetirizine 10 mg Tablet PO (12:17)
[2020-05-14] MEDS: sodium chloride 0.9% 1,000 ML 50 ML IV (12:18)
[2020-05-14] MEDS: pregabalin 150 mg Capsule PO (12:32)
[2020-05-14] MEDS: aspirin 325 mg EC Tablet PO (12:42)
[2020-05-14 13:42] LABS: Partial Thromboplastin Time 81.5 SECONDS (23.9-36.7)
[2020-05-14] MEDS: hyDRALAzine 50 mg Tablet PO ×2 (14:53→21:15)
[2020-05-14] MEDS: desvenlafaxine 50 mg Tablet PO (15:57)
[2020-05-14] MEDS: ALPRAZolam 0.25 mg Tablet PO (16:05)
[2020-05-14 16:37] LABS: Partial Thromboplastin Time 42.4 SECONDS (23.9-36.7)
[2020-05-14] MEDS: fentaNYL 50 mcg/mL INJ 2mL IVP (16:45)
--- NOTE | 2020-05-14 17:41 | PC.NURSE ---
Removed right femoral groin sheath and applied manual pressure to site x 25 minutes with minimal oozing. Small hematoma just above puncture site with minimal bruising. Patient was initially breathing heavily and using abdominal wall muscles, but with much encouragement was able to control & calm her breathing.
[2020-05-14] MEDS: metoprolol tartrate 25 mg Tablet PO (18:18)
[2020-05-14] MEDS: acyclovir 400 mg Tablet 200 MG PO (18:19)
--- NOTE | 2020-05-14 19:15 | PC.NURSE ---
Patient resting in bed Patient denies any pain. Dressing is dry and intact. NO hematoma noted. Good pulses.
[2020-05-14 20:57] LABS: Glucose Point of Care 224 mg/dL (70-110)
[2020-05-14] MEDS: fluticasone nasal spray 16gm Btl 2 SPRAY NASAL (21:15)
[2020-05-15] VITALS (8 sets, daily range): BP systolic 134–163; BP diastolic 75–80; PULSE 63–78; RESP 16–21; TEMP 36.1–36.8; O2SAT 95–98
--- NOTE | 2020-05-15 03:10 | PC.NURSE ---
Patient ambulated post cath. tolerated well no pain. Site is dry and intact. no hematoma.
[2020-05-15 04:59] LABS: Basophils % 0.5 %; Eosinophils # 0.1 10^3/uL (0.0-0.8); Eosinophils % 1.7 %; Hematocrit 37.3 % (37.0-47.0); Hemoglobin 11.3 g/dL (11.5-15.3); Lymphocytes # 1.2 10^3/uL (0.8-4.8); Lymphocytes % 15.4 %; Mean Corpuscular HGB Conc 30.3 g/dL (30.0-36.0); Mean Corpuscular Hemoglobin 29.4 pg (28.0-34.0); Mean Corpuscular Volume 96.9 fL (81-99); Monocytes # 0.5 10^3/uL (0.2-0.9); Monocytes % 5.9 %; Nucleated Red Blood Cells % 0 %; Platelet Count 183 10^3/cmm (130-400); Red Blood Count 3.85 10^6/uL (4.1-5.3); Red Cell Distribution Width 14.4 % (12.1-15.1)
--- NOTE | 2020-05-15 05:02 | PC.NURSE ---
Called Dr. Gandhi due to PAtient complaint of R leg pain and her site oozing. Patient pain 8/10. pedal and tibal pulse same as earlier in the shift. Orders recieved for 2mg of morphine x1 IVP. NO hematoma noted on assessment. Other RN on the floor assessed Cath site as well.
[2020-05-15] MEDS: morphine 4 mg/mL SDV 1 mL 2 MG IVP (05:06)
[2020-05-15 05:17] LABS: Anion Gap 15.2 (5-19); Blood Urea Nitrogen 17 mg/dL (8-23); Calcium 9.5 mg/dL (8.5-10.5); Carbon Dioxide 26 mmol/L (22-29); Chloride 104 mmol/L (98-107); Glomerular Filtration Rate 63.9 mL/min (90-130); Glucose 174 mg/dL (65-115); Osmolality Calculated 298 mOsm/kg (285-295); Potassium 4.2 mmol/L (3.5-5.1); Sodium 141 mmol/L (136-145)
--- NOTE | 2020-05-15 05:25 | PC.NURSE ---
Called Dr. Gandhi Site assessed again found small hematoma 2cm. Orders to monitor site, pulses, and pain.
--- NOTE | 2020-05-15 06:26 | PC.NURSE ---
End of shift: Hematoma remains the same size patient pain has improved. Patient remains alert and oriented and vitals are stable. dressing is clean and intact.
[2020-05-15 06:36] LABS: Glucose Point of Care 162 mg/dL (70-110)
[2020-05-15] MEDS: ipratropium-albuterol 3 mL Neb INHALATION ×2 (07:52→15:42)
--- NOTE | 2020-05-15 08:02 | PC.CHAP ---
Pastoral Care Encounter/Spiritual Assessment Type of Contact [] Declined art class model visit [] Patient/Family/Request visit [] Outpatient visit [] Follow-up visit [] Physician referral [] Code/Alert [] Routine visit [] Staff referral [] Actively dying [] Patient sleeping [] Family support [] [] Out of room [] Palliative care [] [x] Receiving care in room [] Pre-surgical visit [] Trauma [] Long length of stay [] ICU visit [] Other: Relational/Emotional Strength [] Patient feels connected with others/family/visitors/staff [] Distress [] Loneliness/isolation [] Abandonment Spirituality of Patient [] Person of Lyn [] Attends Amish of their Lyn [] Believes in Prayer [] Reads Bible or Amish materials [] There are Spiritual issues to be addressed Metal Model Maker Interventions [x] Prayer [] Active listening [] Non-anxious presence [] Spiritual/emotional support [] Crisis/trauma care [] Spiritual counseling [] Bereavement support [] Provided bereavement packet [] Provided Bible/devotional materials [] Provided toy/stuffed animal, coloring book to patient or family member [] Provided Communion [] Anointing/[place] [] Salvation [x] Completed spiritual assessment [] Other: Impact on Illness or Injury [] Angry [] Fearful [] Anxious [] Often cries [] Exhaustion [] Unable to work [] Unable to attend gnosticism [] Unable to walk/stand [] Unable to read [] Unable to drive [] Unable to eat/drink [] Unable to sleep [] Unable to be with family [] Patient intubated [] Other: Summary Time spent with patient
[2020-05-15] MEDS: isosorbide mononitrate ER 60 mg Tablet 120 MG PO (09:18)
[2020-05-15] MEDS: pregabalin 150 mg Capsule PO ×2 (09:18→13:28)
[2020-05-15] MEDS: aspirin 325 mg EC Tablet PO (09:18)
[2020-05-15] MEDS: amlodipine 10 mg Tablet PO (09:19)
[2020-05-15] MEDS: pantoprazole DR 40 mg Tablet PO (09:19)
[2020-05-15] MEDS: cetirizine 10 mg Tablet PO (09:21)
[2020-05-15] MEDS: FUROsemide 20 mg Tablet PO (09:21)
[2020-05-15] MEDS: potassium chloride ER 10 mEq Tablet PO (09:21)
[2020-05-15] MEDS: magnesium oxide 400 mg tablet PO (09:21)
[2020-05-15] MEDS: hyDRALAzine 50 mg Tablet PO ×2 (09:21→15:20)
[2020-05-15] MEDS: atorvastatin 40 mg Tablet 80 MG PO (09:22)
[2020-05-15] MEDS: metoprolol tartrate 25 mg Tablet PO (09:22)
[2020-05-15] MEDS: ibuprofen 200 mg Tablet PO (09:23)
--- NOTE | 2020-05-15 10:53 | PC.CHAP ---
Pastoral Care Encounter/Spiritual Assessment Type of Contact [] Declined parimutuel ticket seller visit [] Patient/Family/Request visit [] Outpatient visit [] Follow-up visit [] Physician referral [] Code/Alert [] Routine visit [] Staff referral [] Actively dying [] Patient sleeping [] Family support [] [] Out of room [] Palliative care [] [] Receiving care in room [] Pre-surgical visit [] Trauma [] Long length of stay [] ICU visit [x] Other: Women'S Lacrosse Coach passed patients room and witness her in pain and holding her knee. Relational/Emotional Strength [] Patient feels connected with others/family/visitors/staff [] Distress [] Loneliness/isolation [] Abandonment Spirituality of Patient [x] Person of Lyn [] Attends Anabaptism of their Lyn [x] Believes in Prayer [] Reads Bible or Jehovah'S Witness materials [] There are Spiritual issues to be addressed Women'S Lacrosse Coach Interventions [x] Prayer [x] Active listening [x] Non-anxious presence [x] Spiritual/emotional support [] Crisis/trauma care [] Spiritual counseling [] Bereavement support [] Provided bereavement packet [] Provided Bible/devotional materials [] Provided toy/stuffed animal, coloring book to patient or family member [] Provided Communion [] Anointing/[place] [] Salvation [x] Completed spiritual assessment [] Other: Impact on Illness or Injury [] Angry [] Fearful [] Anxious [] Often cries [] Exhaustion [] Unable to work [] Unable to attend muslim [] Unable to walk/stand [] Unable to read [] Unable to drive [] Unable to eat/drink [] Unable to sleep [] Unable to be with family [] Patient intubated [] Other: Summary Women'S Lacrosse Coach prayed with patient for knee pain to go away and her heart to be healthy. Time spent with patient 5 min
[2020-05-15] MEDS: clopidogrel 75 mg Tablet PO (11:23)
[2020-05-15 11:26] LABS: Glucose Point of Care 236 mg/dL (70-110)
--- NOTE | 2020-05-15 13:48 | XR_ITS ---
WS: [id number] XR knee RT 1-2V 12860 REASON FOR EXAM: Pain FINDINGS: Mild to moderate narrowing of the lateral knee joint space. There is severe narrowing of the medial knee joint space with [id number] articulation the medial fe moral condyle and the adjacent medial tibial plateau. There is some flattening of the medial condyle contour. There is medial shift of the femoral condyles. There are several loose bodies within the knee joint. There is narrowing of the patellofemoral joint space with osteophytes from the femoral condyles. XR/XR knee RT 1-2V [id number] IMPRESSION: Osteoarthropathy of the right knee as described above. Within the medial knee j oint compartment there is now bone articulation with bone. This bodies are note d within the knee joint.
--- NOTE | 2020-05-15 14:42 | PC.RESP ---
PULMONARY REHAB INFORMATION SENT TO PATIENT.
[2020-05-15] MEDS: ketorolac 30 mg/mL INJ 15 MG IM (15:18)
[2020-05-15 16:38] LABS: Glucose Point of Care 244 mg/dL (70-110)
== END 2020-05-15 18:27 | disposition home or self-care (01) ==
LOC: CSU 10:48
PROVIDERS: Internal Medicine Cardiovascular Disease; Admitting Provider Internal Medicine Cardiovascular Disease; PCP Nurse Practitioner Family; Visit Provider Internal Medicine Cardiovascular Disease
DX: R94.39 Abnormal result of other cardiovascular function study (principal); E11.9 Type 2 diabetes mellitus without complications; I10 Essential (primary) hypertension; E78.5 Hyperlipidemia, unspecified; I25.10 Atherosclerotic heart disease of native coronary artery without angina pectoris
CPT/HCPCS: 12345; 36415; 36416; 73560; 80048; 82962; 85025; 85730; 93452; 94640; 96375; 97161; C1725; C1769; C1874; C1887; C1894; C9600; G0378; J0360; J1644; J1885; J2250; J2270; J3010; J7030; J8499; Q0163; Q9967

== ENCOUNTER → 2020-05-25 11:39 | Outpatient (BNVA) | payer MEDICAID, SELFPAY ==
[2020-02-08 09:04] VITALS: BP 120/80; BMI 50.5
== END ==
PROVIDERS: PCP Nurse Practitioner Family; Visit Provider Nurse Practitioner Family
DX: E11.59 Type 2 diabetes mellitus with other circulatory complications (principal); I25.10 Atherosclerotic heart disease of native coronary artery without angina pectoris
CPT/HCPCS: 80048

== ENCOUNTER → 2020-06-07 08:14 | Outpatient (BNVA) | payer MEDICAID, SELFPAY ==
[2020-02-08 09:04] VITALS: BP 120/80; BMI 50.5
== END ==
PROVIDERS: PCP Nurse Practitioner Family; Visit Provider Psychiatry & Neurology Psychiatry
DX: F25.1 Schizoaffective disorder, depressive type (principal); F01.50 Vascular dementia, unspecified severity, without behavioral disturbance, psychotic disturbance, mood disturbance, and anxiety; E11.42 Type 2 diabetes mellitus with diabetic polyneuropathy; Z79.4 Long term (current) use of insulin; E78.5 Hyperlipidemia, unspecified
CPT/HCPCS: 99214

== ENCOUNTER 2020-06-26 20:06 | Emergency (ER) | payer MEDICAID, SELFPAY ==
[2020-02-08 09:04] VITALS: BP 120/80; BMI 50.5
--- NOTE | 2020-06-26 20:50 | XR_ITS ---
WS: [id number] Portable AP upright chest, 06/26/2020 Clinical Data: SOB Comparison: Portable chest, 02/07/2019. Findings: No nodules, masses or effusions are seen. The heart is normal. The pulmonary vascularity is not increased. No pneumonia or pneumothorax is seen. The aortic arch shows mild calcification. There are monitor leads on the chest wall. XR/XR chest 1V portable [id number] Impression: Atherosclerosis.
[2020-06-26 21:56] VITALS: O2SAT 97
[2020-06-26 22:00] VITALS: BP 147/83; PULSE 63; RESP 17; O2SAT 96
[2020-06-26 22:13] LABS: Basophils % 0.4 %; Eosinophils # 0.1 10^3/uL (0.0-0.8); Eosinophils % 1.8 %; Hematocrit 34.9 % (37.0-47.0); Lymphocytes # 1.4 10^3/uL (0.8-4.8); Lymphocytes % 17.8 %; Mean Corpuscular HGB Conc 31.5 g/dL (30.0-36.0); Mean Corpuscular Volume 95.1 fL (81-99); Mean Platelet Volume 11.1 fL (7.4-10.4); Monocytes # 0.5 10^3/uL (0.2-0.9); Monocytes % 6.6 %; Neutrophils # 5.57 10^3/uL (1.8-7.7); Nucleated Red Blood Cells % 0 %; Platelet Count 159 10^3/cmm (130-400); Red Blood Count 3.67 10^6/uL (4.1-5.3); Red Cell Distribution Width 14.2 % (12.1-15.1); White Blood Count 7.6 10^3/uL (4.0-10.0)
[2020-06-26 22:36] LABS: Lactic Sepsis W/Reflex 1.9 mmol/L (0.5-2.2)
[2020-06-26 22:47] LABS: NT Pro B Type Natriuretic Pept 199 pg/mL (0-125); Procalcitonin 0.09 ng/mL (0-0.5)
[2020-06-26 22:56] LABS: Influenza A by IFA Negative (Negative); Influenza B by IFA Negative (Negative); SARS Covid-2 Antigen Negative (Negative)
[2020-06-26 22:58] LABS: Alanine Aminotransferase 16 U/L (0-33); Albumin Level 3.8 g/dL (3.5-5.2); Alkaline Phosphatase 97 IU/L (35-105); Anion Gap 16.3 (5-19); Aspartate Amino Transferase 18 U/L (0-32); Blood Urea Nitrogen 27 mg/dL (8-23); C Reactive Protein 13.6 mg/L (0.0-4.9); Calcium 9.4 mg/dL (8.5-10.5); Carbon Dioxide 22 mmol/L (22-29); Chloride 102 mmol/L (98-107); Globulin 3.1 g/dL (1.3-4.6); Glomerular Filtration Rate 85.4 mL/min (90-130); Glucose 375 mg/dL (65-115); Osmolality Calculated 302 mOsm/kg (285-295); Potassium 4.3 mmol/L (3.5-5.1); Sodium 136 mmol/L (136-145); Total Bilirubin 0.2 mg/dL (0.15-1.2); Total Protein 6.9 g/dL (6.6-8.7)
--- NOTE | 2020-06-26 23:12 | ED_ITS ---
HPI - COVID General: Chief Complaint: COVID symptoms Stated Complaint: COVID SX, COUGH,FEVER Time Seen by Provider: 06/26/20 20:12 Source: patient and EMS Mode of arrival: EMS Limitations: no limitations History of Present Illness: HPI Narrative: Patient is a 60-year-old female patient with a history of dementia, diabetes, sleep apnea who is on 3 L of oxygen at home. She presents to the emergency department with cough, shortness of breath, fever. She denies any sick contacts. She states that she has been feeling unwell on so came to the emergency department for evaluation. Prior covid testing: no COVID 19 common symptoms: positive fever(s), chills, cough, body aches, loss of sense of smell and/or taste and throat pain; negative non-productive cough, productive cough, dyspnea, nausea or vomiting COVID 19 other sytmptoms: negative chest pressure, chest pain, pleuritic pain, requiring more oxygen, respiratory distress, cyanosis, lethargy, confusion, new neurological complaints or other concerning symptoms Onset (ago): day(s) (3) Severity: mild Pertinent comorbid conditions: diabetes and COPD/respiratory disease Treatment prior to arrival: none COVID Results: SARS-CoV-2 Antigen (Rapid) Negative (Negative) 06/26/20 22:30 06/26/20 SARS-CoV-2 RNA (RT-PCR) Not detected (NOT DETECTED) 05/10/20 09:21 05/10/20 Nasal/Oral Coronavirus 2019 PCR Pending 06/26/20 21:40 06/26/20 Review of Systems General: Reports: 10 or more systems reviewed and unremarkable except in HPI and below Const: Reports: fever(s), chills and body aches Eyes: Denies: change in vision or blurry vision ENMT: Reports: throat pain Card: Denies: chest pain Resp: Denies: dyspnea, productive cough or non-productive cough GI: Denies: abdominal pain, nausea or vomiting : Denies: flank pain, difficulty voiding, dysuria, urinary frequency, urinary urgency or urinary hesitancy Musc: Denies: neck pain, back pain or extremity swelling Skin/Breast: Denies: rash, pruritus or erythema Neuro: Denies: confusion Endo: Denies: polyuria, polydipsia or tired all the time PFSH ED PFSH: Medical History Anemia Atherosclerosis of coronary artery of [place] heart with angina pectoris Atherosclerotic heart disease of [place] coronary artery with other forms of angina pectoris COPD (chronic obstructive pulmonary disease) Diabetes Dyslipidemia (high LDL; low HDL) Dysuria Essential hypertension Hematuria Insomnia Knee arthropathy Lumbar pain with radiation down left leg Major depression, recurrent, full remission Major depressive disorder, recurrent, in full remission Mixed hyperlipidemia Morbid obesity with BMI of 50.0-59.9, adult Obstructive sleep apnea Restless legs syndrome Syncope Urinary tract infection Vascular dementia without behavioral disturbance Vitamin B12 deficiency anemia Vitamin D deficiency Surgical History (Reviewed 06/26/20 @ 23:26 by Zaina Ackerman MD, [facility] [place]) History of arthroscopic knee surgery Bilateral History of section, classical History of cholecystectomy History of hysterectomy Hx of cardiac cath April 2016 Family History Mother Cancer Acute leukemia Father CAD (coronary artery disease) Anesthesia complication Family history of premature coronary artery disease Stroke Suicide Hypertension Brother Diabetes Family history of premature coronary artery disease Hypertension Sister Diabetes Family history of premature coronary artery disease Hypertension Denies family history of Clotting disorder Dementia Chronic kidney disease (CKD) Bleeding disorder Lung disease Social History (Reviewed 06/26/20 @ 23:26 by Zaina Ackerman MD, [facility] [place]) Smoking and tobacco status: never smoked Second hand smoke exposure: No Alcohol intake: never Desire information about alcohol rehabilitation?: No Counseling given: No Desire information about substance/drug rehabilitation?: No Counseling given: No Adopted: No Caregiver/support person: No Lives independently: Yes Household members: none Housing: Apartment Marital status: Number of children: 3 Number of grandchildren: 3 Highest education level completed: 8th Grade Current occupational status: disabled Pets and animals: Yes Pets & animals: dog(s) History of recent travel: No Leisure activites: other Leisure activities details: puzzles and coloring Sexually active: No Current gender identity: Female Lyn/Mandaeism: Other Special lyn needs: No Agree to transfusion: Yes Financial difficulty paying for basics: Not Very Hard Female Reproductive History: Para: 3 Spontaneous abortions: No Physical Exam Const: COMMON NORMALS: no acute distress, average body habitus, patient oriented x3, no limitations, healthy appearing, alert and well nourished HENMT: COMMON NORMALS: normocephalic, atraumatic and moist oral mucous membranes HEAD & SCALP: normocephalic and atraumatic Neck/C-Spine: COMMON NORMALS: no meningeal signs and no JVD Resp: COMMON NORMALS: normal respiratory effort, No retractions, No use of accessory muscles, clear to auscultation bilaterally and percussion normal AUSCULTATION: clear to auscultation bilaterally PERCUSSION: percussion normal Cardio: COMMON NORMALS: no JVD, regular rate, regular rhythm, S1 normal heart sound present, S2 normal heart sound present, No gallops present (Cardio), No clicks present (Cardio), No murmurs present (Cardio), No rub (Cardio) and Peripheral pulses 2+ throughout RATE: regular rate RHYTHM: regular rhythm HEART SOUNDS: S1 normal heart sound present and S2 normal heart sound present PERIPHERAL PULSES: Peripheral pulses 2+ throughout GI: COMMON NORMALS: Normal to inspection, nondistended, normoactive bowel sounds present, Soft to palpation, non-tender, No hepatosplenomegaly present, no masses and no bruits PALPATION: Yes Soft to palpation and Yes No hepatosplenomegaly present Extremity: COMMON NORMALS: normal to inspection, full ROM, capillary refill normal, no calf tenderness and no pedal edema Neuro: COMMON NORMALS: patient oriented x3 SENSORIUM/ORIENTATION: Yes alert MENINGEAL SIGNS: Yes no meningeal signs Skin: COMMON NORMALS: no rashes or lesions noted, no wounds, turgor normal, no jaundice, no petechiae and no mottling GENERAL SKIN EXAM: no rashes or lesions noted and turgor normal Course Reevaluation(s): Reevaluation #1: Discussed her lab and imaging findings with her. Explained rapid Covid was negative, she is not requiring more oxygen than normal. Labs unremarkable, chest x-ray with no severe findings. I will monitor as a case of a COPD exacerbation, and she voiced understanding and is in agreement with the plan. Time: 23:40 Vital Signs: Vital signs: Vital Signs Pulse Oximetry 97 06/26/20 21:56 MDM - COVID MDM Narrative: Medical decision making narrative: 60-year-old female patient with multiple medical issues who presents to the emergency department with cough, shortness of breath, body aches, fever, loss of taste. Rapid Covid was negative, a PCR test was sent out. Labs were unremarkable he is managed as a case of COPD exacerbation. She is however to self isolate until the results of her PCR test comes back. Because she is allergic to almost all classes of antibiotics she is not given any antibiotics, but is discharged home on oral steroids. She is to follow-up with her primary care provider. Medical Records: Attestation: I reviewed the patient's medical records. Lab Data: Attestation: I reviewed the patient's lab results. Labs: Lab Results 06/26/20 06/26/20 06/26/20 Range/Units 21:45 21:45 21:45 WBC 7.6 (4.0-10.0) 10^3/ uL RBC 3.67 L (4.1-5.3) 10^6/u L Hgb 11.0 L (11.5-15.3) g/dL Hct 34.9 L (37.0-47.0) % MCV 95.1 (81-99) fL MCH 30.0 (28.0-34.0) pg MCHC 31.5 (30.0-36.0) g/dL RDW 14.2 (12.1-15.1) % Plt Count 159 (130-400) 10^3/c mm MPV 11.1 H (7.4-10.4) fL Neut % (Auto) 73.0 % Lymph % (Auto) 17.8 % [place] % (Auto) 6.6 % Eos % (Auto) 1.8 % Baso % (Auto) 0.4 % Neut # (Auto) 5.57 (1.8-7.7) 10^3/u L Lymph # (Auto) 1.4 (0.8-4.8) 10^3/u L [place] # (Auto) 0.5 (0.2-0.9) 10^3/u L Eos # (Auto) 0.1 (0.0-0.8) 10^3/u L Baso # (Auto) 0.0 (0.0-0.1) 10^3/u L Nucleated RBC % (a uto) 0 % Nucleated RBCs # 0.0 /100WBC D-Dimer 0.60 H (0-0.59) ug/mIFE U Sodium 136 (136-145) mmol/L Potassium 4.3 (3.5-5.1) mmol/L Chloride 102 (98-107) mmol/L Carbon Dioxide 22 (22-29) mmol/L Anion Gap 16.3 (5-19) BUN 27 H (8-23) mg/dL Creatinine 0.7 (0.5-0.9) mg/dL GFR Calculation 85.4 L (90-130) mL/min Glucose 375 H (65-115) mg/dL Calculated Osmolal ity 302 H (285-295) mOsm/k g Lactic Acid (0.5-2.2) mmol/L Calcium 9.4 (8.5-10.5) mg/dL Total Bilirubin 0.2 (0.15-1.2) mg/dL AST 18 (0-32) U/L ALT 16 (0-33) U/L Alkaline Phosphata se 97 (35-105) IU/L Troponin T Baselin e (0-10) ng/L C-Reactive Protein 13.6 H (0.0-4.9) mg/L NT-Pro-B Natriuret Pep 199 H (0-125) pg/mL Total Protein 6.9 (6.6-8.7) g/dL Albumin 3.8 (3.5-5.2) g/dL Globulin 3.1 (1.3-4.6) g/dL Procalcitonin 0.09 (0-0.5) ng/mL Influenza Type A A g (Negative) Influenza Type B A g (Negative) SARS-CoV-2 Ag (Rap id) (Negative) 06/26/20 06/26/20 06/26/20 Range/Units 21:45 22:30 22:30 WBC (4.0-10.0) 10^3/ uL RBC (4.1-5.3) 10^6/u L Hgb (11.5-15.3) g/dL Hct (37.0-47.0) % MCV (81-99) fL MCH (28.0-34.0) pg MCHC (30.0-36.0) g/dL RDW (12.1-15.1) % Plt Count (130-400) 10^3/c mm MPV (7.4-10.4) fL Neut % (Auto) % Lymph % (Auto) % [place] % (Auto) % Eos % (Auto) % Baso % (Auto) % Neut # (Auto) (1.8-7.7) 10^3/u L Lymph # (Auto) (0.8-4.8) 10^3/u L [place] # (Auto) (0.2-0.9) 10^3/u L Eos # (Auto) (0.0-0.8) 10^3/u L Baso # (Auto) (0.0-0.1) 10^3/u L Nucleated RBC % (a uto) % Nucleated RBCs # /100WBC D-Dimer (0-0.59) ug/mIFE U Sodium (136-145) mmol/L Potassium (3.5-5.1) mmol/L Chloride (98-107) mmol/L Carbon Dioxide (22-29) mmol/L Anion Gap (5-19) BUN (8-23) mg/dL Creatinine (0.5-0.9) mg/dL GFR Calculation (90-130) mL/min Glucose (65-115) mg/dL Calculated Osmolal ity (285-295) mOsm/k g Lactic Acid 1.9 (0.5-2.2) mmol/L Calcium (8.5-10.5) mg/dL Total Bilirubin (0.15-1.2) mg/dL AST (0-32) U/L ALT (0-33) U/L Alkaline Phosphata se (35-105) IU/L Troponin T Baselin e (0-10) ng/L C-Reactive Protein (0.0-4.9) mg/L NT-Pro-B Natriuret Pep (0-125) pg/mL Total Protein (6.6-8.7) g/dL Albumin (3.5-5.2) g/dL Globulin (1.3-4.6) g/dL Procalcitonin (0-0.5) ng/mL Influenza Type A A g Negative (Negative) Influenza Type B A g Negative (Negative) SARS-CoV-2 Ag (Rap id) Negative (Negative) 06/26/20 Range/Units 23:25 WBC (4.0-10.0) 10^3/ uL RBC (4.1-5.3) 10^6/u L Hgb (11.5-15.3) g/dL Hct (37.0-47.0) % MCV (81-99) fL MCH (28.0-34.0) pg MCHC (30.0-36.0) g/dL RDW (12.1-15.1) % Plt Count (130-400) 10^3/c mm MPV (7.4-10.4) fL Neut % (Auto) % Lymph % (Auto) % [place] % (Auto) % Eos % (Auto) % Baso % (Auto) % Neut # (Auto) (1.8-7.7) 10^3/u L Lymph # (Auto) (0.8-4.8) 10^3/u L [place] # (Auto) (0.2-0.9) 10^3/u L Eos # (Auto) (0.0-0.8) 10^3/u L Baso # (Auto) (0.0-0.1) 10^3/u L Nucleated RBC % (a uto) % Nucleated RBCs # /100WBC D-Dimer (0-0.59) ug/mIFE U Sodium (136-145) mmol/L Potassium (3.5-5.1) mmol/L Chloride (98-107) mmol/L Carbon Dioxide (22-29) mmol/L Anion Gap (5-19) BUN (8-23) mg/dL Creatinine (0.5-0.9) mg/dL GFR Calculation (90-130) mL/min Glucose (65-115) mg/dL Calculated Osmolal ity (285-295) mOsm/k g Lactic Acid (0.5-2.2) mmol/L Calcium (8.5-10.5) mg/dL Total Bilirubin (0.15-1.2) mg/dL AST (0-32) U/L ALT (0-33) U/L Alkaline Phosphata se (35-105) IU/L Troponin T Baselin e 9 (0-10) ng/L C-Reactive Protein (0.0-4.9) mg/L NT-Pro-B Natriuret Pep (0-125) pg/mL Total Protein (6.6-8.7) g/dL Albumin (3.5-5.2) g/dL Globulin (1.3-4.6) g/dL Procalcitonin (0-0.5) ng/mL Influenza Type A A g (Negative) Influenza Type B A g (Negative) SARS-CoV-2 Ag (Rap id) (Negative) EKG Data: EKG 1: Attestation: I personally reviewed and interpreted this EKG as follows: EKG interpretation date: 06/26/20 EKG interpretation time: 20:37 Prior EKG tracings: not available for review Interpretation: Normal sinus rhythm. Heart rate 64 bpm. Normal axis. No ST changes. COVID Results: SARS-CoV-2 Antigen (Rapid) Negative (Negative) 06/26/20 22:30 06/26/20 SARS-CoV-2 RNA (RT-PCR) Not detected (NOT DETECTED) 05/10/20 09:21 05/10/20 Nasal/Oral Coronavirus 2019 PCR Pending 06/26/20 21:40 06/26/20 Discharge Plan Discharge Patient Disposition: Home Clinical Impression: COPD exacerbation Condition: Stable Prescriptions: New prednisone 20 mg tablet 20 mg PO BID 5 Days Qty: 10 RF: 0 Continued isosorbide mononitrate 120 mg tablet extended release 24 hr 120 mg PO DAILY 90 Days Qty: 90 RF: 3 ipratropium-albuterol 0.5 mg-3 mg(2.5 mg base)/3 mL solution for nebulization 3 ml INHALATION QID RF: 0 rosuvastatin 20 mg tablet 20 mg PO DAILY 90 Days Qty: 90 RF: 1 (DME) blood sugar diagnostic Strip See Rx Instructions .ROUTE .MEDSUPPLY Qty: 100 RF: 5 (DME) lancets Misc See Rx Instructions .ROUTE .MEDSUPPLY Qty: 100 RF: 0 nitroglycerin 0.4 mg tablet, sublingual 0.4 mg SUBLINGUAL Q5M PRN (Reason: chest pain) Qty: 30 RF: 1 hydralazine 50 mg tablet 50 mg PO TID 30 Days Qty: 90 RF: 5 metoprolol tartrate 25 mg tablet 25 mg PO BID 30 Days Qty: 60 RF: 5 aspirin 81 mg tablet,chewable 81 mg PO DAILY RF: 0 pregabalin [Lyrica] 150 mg capsule See Rx Instructions .ROUTE .COMPLEX RF: 0 Januvia 100 mg tablet 100 mg PO DAILY 90 Days Qty: 90 RF: 1 (DME) lancets [OneTouch Delica Lancets] 30 gauge misc See Rx Instructions .ROUTE .MEDSUPPLY Qty: 100 RF: 5 amlodipine 10 mg tablet 10 mg PO DAILY Qty: 90 RF: 3 meclizine 25 mg tablet 25 mg PO TID PRN (Reason: dizziness) Qty: 30 RF: 0 fluticasone propionate 50 mcg/actuation spray,suspension See Rx Instructions .ROUTE .COMPLEX Qty: 16 RF: 2 potassium chloride 10 mEq tablet extended release See Rx Instructions .ROUTE .COMPLEX Qty: 15 RF: 5 (DME) Provide B12 injection See Rx Instructions .Route .MEDSUPPLY Qty: 1 RF: 0 pantoprazole 40 mg tablet,delayed release (DR/EC) See Rx Instructions .ROUTE .COMPLEX Qty: 30 RF: 5 blood sugar diagnostic [OneTouch Ultra Blue Test Strip] Strip See Rx Instructions .ROUTE .COMPLEX Qty: 100 RF: 0 insulin aspart U-100 [Novolog Flexpen U-100 Insulin] 100 unit/mL (3 mL) insulin pen See Rx Instructions .ROUTE .COMPLEX Qty: 30 RF: 2 furosemide 20 mg tablet See Rx Instructions .ROUTE .COMPLEX Qty: 15 RF: 2 aripiprazole 10 mg tablet See Rx Instructions .ROUTE .COMPLEX Qty: 30 RF: 2 cetirizine 10 mg tablet See Rx Instructions .ROUTE .COMPLEX Qty: 30 RF: 2 ropinirole 4 mg tablet See Rx Instructions .ROUTE .COMPLEX Qty: 30 RF: 2 desvenlafaxine succinate 50 mg tablet extended release 24 hr See Rx Instructions .ROUTE .COMPLEX Qty: 30 RF: 2 trazodone 50 mg tablet See Rx Instructions .ROUTE .COMPLEX Qty: 30 RF: 2 acyclovir 200 mg capsule See Rx Instructions .ROUTE .COMPLEX Qty: 60 RF: 2 nitrofurantoin monohyd/m-cryst 100 mg capsule See Rx Instructions .ROUTE .COMPLEX Qty: 14 RF: 0 ergocalciferol (vitamin D2) 1,250 mcg (50,000 unit) capsule See Rx Instructions .ROUTE .COMPLEX Qty: 4 RF: 0 sucralfate 1 gram tablet See Rx Instructions .ROUTE .COMPLEX Qty: 30 RF: 2 cyanocobalamin (vitamin B-12) 1,000 mcg/mL solution See Rx Instructions .ROUTE .COMPLEX Qty: 4 RF: 2 fluticasone propion-salmeterol [Advair Diskus] 500-50 mcg/dose blister with device 1 inh INHALATION BID Qty: 60 RF: 5 Tresiba FlexTouch U-100 100 unit/mL (3 mL) insulin pen See Rx Instructions .ROUTE .COMPLEX Qty: 30 RF: 2 (DME) pen needle, diabetic [BD Ultra-Fine Dori Pen Needle] 32 gauge x 5/32 needle See Rx Instructions .ROUTE .MEDSUPPLY Qty: 100 RF: 6 magnesium oxide 400 mg magnesium capsule 400 mg PO DAILY RF: 0 Plavix 75 mg tablet 75 mg PO DAILY 30 Days Qty: 30 RF: 5 albuterol sulfate 90 mcg/actuation Hfa Aerosol Inhaler 2 puff INHALATION QID PRN (Reason: Shortness Of Breath) RF: 0 Discharge Orders: Discharge ED (Routine); Ordered 06/26/20 Ordered By: Zaina Ackerman Referrals: ABELINO Alegria, ASSISTANT MERCHANDISE MANAGER [Primary Care Provider] - 1-3 days Discharge Diet: Usual diet Discharge Activity: Increase activity as tolerated Patient Instructions: Chronic Obstructive Pulmonary Disease (ED) Activity Restrictions/Additional Instructions: Return for any new or worsening symptoms. Take the steroid as prescribed. You need to self isolate until you receive the results of the Covid testing. Follow-up with your primary care provider within 3 days, either in person or via video conference. You will be contacted with the results of your Covid send out test. Coding Level of Care Code ED Technical Writing Lead/Mgr for Bailey Fwd Exam Comprehensive
--- NOTE | 2020-06-26 23:13 | ECG_ITS ---
[facility] Test Date: 2020-06-26 Pat Name: Shweta Morgan Department: Room: Gender: Female Space Sciences Director: : 1960 Requested By: Zaina Ackerman I Order Number: [id number] Tez MD: Elizabeth Winters M.D. Measurements Intervals [place] Rate: 64 P: 19 NV: 173 QRS: 33 QRSD: 83 T: 13 QT: 420 QTc: 434 Interpretive Statements SINUS RHYTHM Compared to ECG 02/07/2019 16:58:45 No significant changes Electronically Signed On 06-27-2020 20:09:55 BOWLING BALL PATCHER by Elizabeth Winters M.D. [id number] f
[2020-06-26 23:48] LABS: Troponin(5th) Baseline 9 ng/L (0-10)
[2020-06-27 00:56] VITALS: BP 154/73; PULSE 62; RESP 16; O2SAT 97
[2020-06-27] MEDS: albuterol 8 gm MDI 4 PUFF INHALATION (01:00)
[2020-06-27 01:01] VITALS: PULSE 88; RESP 17; O2SAT 97
[2020-06-27 01:03] VITALS: PULSE 90
[2020-06-27 01:17] VITALS: BP 156/76; PULSE 61; RESP 16; O2SAT 97
[2020-07-02 11:47] LABS: Coronavirus Test Green County Not Detected
== END 2020-06-27 01:19 | disposition home or self-care (01) ==
PROVIDERS: Emergency Provider Family Medicine; PCP Nurse Practitioner Family
DX: J44.1 Chronic obstructive pulmonary disease with (acute) exacerbation (principal); Z79.82 Long term (current) use of aspirin; Z79.02 Long term (current) use of antithrombotics/antiplatelets; Z79.4 Long term (current) use of insulin; I25.119 Atherosclerotic heart disease of native coronary artery with unspecified angina pectoris; E11.9 Type 2 diabetes mellitus without complications; I10 Essential (primary) hypertension; E78.2 Mixed hyperlipidemia; F01.50 Vascular dementia, unspecified severity, without behavioral disturbance, psychotic disturbance, mood disturbance, and anxiety
CPT/HCPCS: 12345; 36415; 71045; 80053; 83605; 83880; 84145; 84484; 85025; 85378; 86140; 87040; 87426; 87635; 87804; 93005; 94640; 99282; 99284; J3535

== ENCOUNTER → 2020-07-17 08:44 | Outpatient (BNVA) | payer MEDICAID, SELFPAY ==
[2020-02-08 09:04] VITALS: BP 120/80; BMI 50.5
== END ==
PROVIDERS: PCP Nurse Practitioner Family; Visit Provider Internal Medicine
DX: E11.42 Type 2 diabetes mellitus with diabetic polyneuropathy (principal); Z79.4 Long term (current) use of insulin; E11.59 Type 2 diabetes mellitus with other circulatory complications; I25.10 Atherosclerotic heart disease of native coronary artery without angina pectoris; E11.65 Type 2 diabetes mellitus with hyperglycemia; N39.0 Urinary tract infection, site not specified
CPT/HCPCS: 99215

== ENCOUNTER → 2020-09-07 10:08 | Outpatient (BNVA) | payer MEDICAID, SELFPAY ==
[2020-02-08 09:04] VITALS: BP 120/80; BMI 50.5
== END ==
PROVIDERS: PCP Nurse Practitioner Family; Visit Provider Nurse Practitioner Family
DX: D64.9 Anemia, unspecified (principal); D51.9 Vitamin B12 deficiency anemia, unspecified; E11.42 Type 2 diabetes mellitus with diabetic polyneuropathy; Z79.4 Long term (current) use of insulin; E78.2 Mixed hyperlipidemia; M54.5 Low back pain; M79.605 Pain in left leg; M54.9 Dorsalgia, unspecified; G89.29 Other chronic pain; J22 Unspecified acute lower respiratory infection; J44.9 Chronic obstructive pulmonary disease, unspecified; E11.65 Type 2 diabetes mellitus with hyperglycemia
CPT/HCPCS: 80053; 80061; 82607; 82728; 82746; 83036; 83550; 83735; 84100; 85025

== ENCOUNTER → 2020-09-14 07:42 | Outpatient (BNVA) | payer MEDICAID, SELFPAY ==
[2020-02-08 09:04] VITALS: BP 120/80; BMI 50.5
== END ==
PROVIDERS: PCP Nurse Practitioner Family; Visit Provider Psychiatry & Neurology Psychiatry
DX: F25.1 Schizoaffective disorder, depressive type (principal); F01.50 Vascular dementia, unspecified severity, without behavioral disturbance, psychotic disturbance, mood disturbance, and anxiety; G47.33 Obstructive sleep apnea (adult) (pediatric); G47.00 Insomnia, unspecified
CPT/HCPCS: 99214

== ENCOUNTER → 2020-09-20 12:45 | Outpatient (BNVA) | payer MEDICAID, SELFPAY ==
[2020-02-08 09:04] VITALS: BP 120/80; BMI 50.5
== END ==
PROVIDERS: PCP Nurse Practitioner Family; Visit Provider Specialist
DX: G43.709 Chronic migraine without aura, not intractable, without status migrainosus (principal)
CPT/HCPCS: 64615; J0585

== ENCOUNTER → 2020-10-09 14:14 | Outpatient (BNVA) | payer MEDICAID, SELFPAY ==
[2020-02-08 09:04] VITALS: BP 120/80; BMI 50.5
== END ==
PROVIDERS: PCP Nurse Practitioner Family; Referring Provider Nurse Practitioner Family; Visit Provider Internal Medicine Pulmonary Disease
DX: R05 Cough (principal); J22 Unspecified acute lower respiratory infection; I25.118 Atherosclerotic heart disease of native coronary artery with other forms of angina pectoris; N39.0 Urinary tract infection, site not specified; R06.00 Dyspnea, unspecified; J44.9 Chronic obstructive pulmonary disease, unspecified; J18.9 Pneumonia, unspecified organism; J45.40 Moderate persistent asthma, uncomplicated; G47.33 Obstructive sleep apnea (adult) (pediatric); E66.01 Morbid (severe) obesity due to excess calories; Z68.43 Body mass index [BMI] 50.0-59.9, adult
CPT/HCPCS: 71046; 80048; 82785; 83880; 85025; 86003

== ENCOUNTER → 2020-11-05 08:30 | Outpatient (BNVA) | payer MEDICAID, SELFPAY ==
[2020-10-23 13:54] VITALS: BP 156/86; BMI 54.1
== END ==
PROVIDERS: PCP Nurse Practitioner Family; Visit Provider Internal Medicine Pulmonary Disease
DX: J44.9 Chronic obstructive pulmonary disease, unspecified (principal); Z20.822 Contact with and (suspected) exposure to COVID-19
CPT/HCPCS: 87635

== ENCOUNTER 2020-11-08 08:14 | Outpatient (CLI) | payer MEDICAID, SELFPAY ==
[2020-02-08 09:04] VITALS: BP 120/80; BMI 50.5
[2020-10-23 13:54] VITALS: BP 156/86; BMI 54.1
--- NOTE | 2020-11-08 08:45 | USCV_ITS ---
Shweta Morgan Age: 60 Gender: F : 1960 Exam Date: 11/08/2020 08:46 Ordering Phys: Tuan Amor MD Technologist: NIDHI Exam Location: [facility] [place] Indication: DYSPNEA BP: / HR: 76 Rhythm: Sinus Technical Quality: Adequate MEASUREMENTS (Male / Female) Normal Values 2D ECHO LV Diastolic Diameter PLAX 3.3 cm 4.2 - 5.9 / 3.9 - 5.3 cm LV Systolic Diameter PLAX 2.4 cm LV Chamber Size 2.5 cm IVS Diastolic Thickness 1.3 cm 0.6 - 1.0 / 0.6 - 0.9 cm IVS Systolic Thickness 1.6 cm LVPW Diastolic Thickness 2.3 cm 0.6 - 1.0 / 0.6 - 0.9 cm LVPW Systolic Thickness 3.1 cm RV Chamber Size 2.5 cm LVOT Diameter 2.1 cm LV Ejection Fraction 2D Teich 55.1 % LV Ejection Fraction MOD 2C 31.1 % LV Ejection Fraction 2C AL 33.0 % LA Diameter 4.1 cm LA Width 2.9 cm LA Height 4.8 cm RA Width 2.4 cm RA Height 3.6 cm Aorta at Sinotubular Diameter 2.6 cm M-MODE LV Diastolic Diameter MM 4.4 cm 4.2 - 5.9 / 3.9 - 5.3 cm LV Systolic Diameter MM 3.1 cm LV Ejection Fraction MM Teich 57.9 % IVS Diastolic Thickness MM 1.2 cm 0.6 - 1.0 / 0.6 - 0.9 cm IVS Systolic Thickness MM 1.6 cm LVPW Diastolic Thickness MM 1.4 cm 0.6 - 1.0 / 0.6 - 0.9 cm LVPW Systolic Thickness MM 2.0 cm Aortic Annulus Diameter 2.8 cm LA Ao Ratio MM 1.4 MV E Point Septal Separation 0.8 cm DOPPLER AV Peak Velocity 116.0 cm/s LVOT Peak Velocity 94.0 cm/s AV Area Cont Eq vti 3.4 cm squared AV Area Cont Eq pk 2.8 cm squared MV Area PHT 2.6 cm squared Mitral E to A Ratio 0.8 MV E' Velocity 41.0 cm/s Mitral E to MV E' Ratio 10.8 Mitral E to LV E' Lateral Ratio 9.8 Mitral E to LV E' Septal Ratio 12.0 TR Peak Velocity 154.3 cm/s TR Peak Gradient 9.5 mmHg TV Peak E Velocity 44.0 cm/s Right Atrial Pressure 3.0 mmHg Pulmonary Artery Systolic Pressu 12.5 mmHg PV Peak Velocity 108.0 cm/s RV Acceleration Time 0.1 s RV Ejection Time 0.4 s RV AcT/ET 0.3 FINDINGS Left Ventricle Normal left ventricular cavity size. Normal left ventricular systolic function. No regional wall motion abnormalities. Left ventricular ejection fraction is estimated at 57 %. Grade I/IV diastolic dysfunction (abnormal relaxation filling pattern), normal to mildly elevated filling pressures. Right Ventricle The right ventricle is normal in size and function. Right Atrium The right atrium is normal in size. Left Atrium The left atrium is normal in size. Mitral Valve Structurally normal mitral valve without significant stenosis or prolapse. There is no mitral regurgitation. Aortic Valve Structurally normal aortic valve without significant sclerosis or stenosis. There is no aortic regurgitation. Tricuspid Valve Structurally normal tricuspid valve without significant stenosis or regurgitation. Pulmonary artery systolic pressure is normal. Pulmonic Valve Structurally normal pulmonic valve without significant stenosis. There is no pulmonic regurgitation. Pericardium Normal pericardium without effusion. Aorta Normal ascending aorta dimension. CONCLUSIONS 1-Normal left ventricular cavity size. Normal left ventricular systolic function. No regional wall motion abnormalities. Left ventricular ejection fraction is estimated at 57 %. Grade I/IV diastolic dysfunction (abnormal relaxation filling pattern), normal to mildly elevated filling pressures. 2-No significant valve abnormalities. 3-There is no pericardial effusion. 4-Pulmonary artery systolic pressure is within normal limits. 5-Right atrial pressure is around 5 mm of mercury. 6-No significant change since the prior echocardiogram study of 06/26/2018. Yamile Gandhi MD (Electronically Signed) Final Date: 08 Nov 2020 20:28 S
[2020-11-08 09:37] VITALS: BP 137/80
--- NOTE | 2020-11-08 13:23 | PFTS_ITS ---
Date of Study:11/08/20 Date of Dictation: MECHANICS: Forced vital capacity (FVC) is normal. Forced expiratory volume in one second (FEV1) is normal. FEV1/FVC is normal. FLOW VOLUME LOOP: Hesitation in both pre and postbronchodilator flow volume loops. LUNG VOLUMES: Total lung capacity (TLC) is normal. Residual volume (RV) is mildly reduced. DIFFUSING CAPACITY FOR CARBON MONOXIDE: Normal. INTERPRETATION: The postbronchodilator spirometry is normal. The prebronchodilator spirometry is consistent with mild restriction. There is some postbronchodilator response. Total lung capacity is normal. Mildly reduced residual volume is likely nonspecific finding. Gas exchange (DLCO) is normal. MTDD
== END 2020-11-08 08:15 | disposition home or self-care (01) ==
LOC: US 08:17
PROVIDERS: PCP Nurse Practitioner Family; Visit Provider Internal Medicine Pulmonary Disease
DX: R06.00 Dyspnea, unspecified (principal)
CPT/HCPCS: 93306; 94060; 94618; 94726; 94729; J7611

== ENCOUNTER → 2020-12-07 07:13 | Outpatient (BNVA) | payer MEDICAID, SELFPAY ==
[2020-10-23 13:54] VITALS: BP 156/86; BMI 54.1
== END ==
PROVIDERS: PCP Nurse Practitioner Family; Visit Provider Psychiatry & Neurology Psychiatry
DX: F01.50 Vascular dementia, unspecified severity, without behavioral disturbance, psychotic disturbance, mood disturbance, and anxiety (principal); F25.1 Schizoaffective disorder, depressive type; G47.33 Obstructive sleep apnea (adult) (pediatric)
CPT/HCPCS: 99214

== ENCOUNTER 2020-12-24 11:04 | Emergency (ER) | payer MEDICAID, SELFPAY ==
[2020-10-23 13:54] VITALS: BP 156/86; BMI 54.1
--- NOTE | 2020-12-24 11:11 | XRR_ITS ---
PROCEDURE INFORMATION: Exam: XR Chest Exam date and time: 12/24/2020 11:11 AM Age: 60 years old Clinical indication: Cough and shortness of breath TECHNIQUE: Imaging protocol: XR of the chest. Views: 1 view. COMPARISON: CR XR chest 2V* [id number] 10/09/2020 2:27 PM FINDINGS: Lungs: Unremarkable. No consolidation. Pleural spaces: Unremarkable. No pleural effusion. No pneumothorax. Heart/Mediastinum: Unremarkable. No cardiomegaly. Diaphragm: Stable right hemidiaphragm elevation. Bones/joints: No acute findings. XR/XR chest 1V portable [id number] IMPRESSION: No acute findings.
--- NOTE | 2020-12-24 11:12 | ECG_ITS ---
[facility] Test Date: 2020-12-24 Pat Name: Shweta Morgan Department: Room: Gender: Female Counter Dish Carrier: : 1960 Requested By: Aldair Farah Order Number: [id number] Reading MD: FANNY WEBBER Measurements Intervals [place] Rate: 75 P: 16 WI: 178 QRS: 34 QRSD: 81 T: 17 QT: 391 QTc: 437 Interpretive Statements SINUS RHYTHM LOW QRS VOLTAGE IN PRECORDIAL LEADS [QRS DEFLECTION < 1.0 mV IN CHEST LEADS] NONSPECIFIC T-WAVE ABNORMALITY Compared to ECG 06/26/2020 20:37:48 Low QRS voltage now present T-wave abnormality now present Electronically Signed On 12-24-2020 18:48:49 CDT by FANNY WEBBER [id number]
--- NOTE | 2020-12-24 11:12 | ED_ITS ---
HPI - General Adult General: Chief complaint: COVID symptoms Stated complaint: sob, cough, sore throat Time Seen by Provider: 12/24/20 11:09 History of Present Illness: HPI narrative: This patient is a 60-year-old female with a long history of congestive heart failure presents to the emergency department with complaint of cough that does produce sputum. States this has been present for the past 3 to 4 days. Patient denies fever denies any body aches. Denies any recent weight gain. Will do medical evaluation treat as needed patient denies Covid vaccine. Onset (ago): day(s) Relieving factors: none Exacerbating factors: none Associated symptoms: Reports cough; Deny diaphoresis, decreased appetite, dyspnea, fevers/chills, headache(s), malaise, nausea, rash, palpitations, short of breath, syncope, vomiting or weakness Review of Systems General: Reports: 10 or more systems reviewed and unremarkable except in HPI and below Const: Denies: malaise or diaphoresis Eyes: Denies: change in vision or blurry vision ENMT: Denies: throat pain, hoarseness or mouth pain Card: Denies: palpitations or syncope Resp: Reports: productive cough; Denies: dyspnea GI: Denies: nausea or vomiting : Denies: flank pain, difficulty voiding, dysuria, urinary frequency, urinary urgency or urinary hesitancy Musc: Denies: neck pain, back pain, extremity pain, extremity swelling, joint pain, joint swelling, joint redness, joint warmth or limited range of motion Skin/Breast: Denies: rash, pruritus, erythema or skin tenderness Neuro: Denies: headache(s), numbness in extremities or weakness in extremities Psych: Denies: anxiety or depression PFSH ED PFSH: Medical History Anemia Atherosclerosis of coronary artery of [place] heart with angina pectoris Atherosclerotic heart disease of [place] coronary artery with other forms of angina pectoris Chronic back pain Cough Diabetes Diabetic neuropathy Dyslipidemia (high LDL; low HDL) Dysuria Essential hypertension Hematuria Insomnia Knee arthropathy Lower respiratory tract infection 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 Major depression, recurrent, full remission Major depressive disorder, recurrent, in full remission Mixed hyperlipidemia Morbid obesity with BMI of 50.0-59.9, adult Obstructive sleep apnea Restless legs syndrome Syncope Urinary tract infection Vascular dementia without behavioral disturbance Vitamin B12 deficiency anemia Vitamin D deficiency Surgical History History of arthroscopic knee surgery Bilateral History of section, classical History of cholecystectomy History of hysterectomy Hx of cardiac cath April 2016 Family History Mother Cancer Acute leukemia Father CAD (coronary artery disease) Anesthesia complication Family history of premature coronary artery disease Stroke Suicide Hypertension Brother Diabetes Family history of premature coronary artery disease Hypertension Sister Diabetes Family history of premature coronary artery disease Hypertension Denies family history of Clotting disorder Dementia Chronic kidney disease (CKD) Bleeding disorder Lung disease Social History Smoking and tobacco status: never smoked Second hand smoke exposure: Yes Smoking risk assessment/counseling performed?: Yes Alcohol intake: never Desire information about alcohol rehabilitation?: No Counseling given: No Desire information about substance/drug rehabilitation?: No Counseling given: No Adopted: No Caregiver/support person: Yes Lives independently: Yes Household members: none Housing: Apartment Marital status: Number of children: 3 Number of grandchildren: 3 Highest education level completed: 8th Grade Current occupational status: disabled Pets and animals: No History of recent travel: No Leisure activites: other Leisure activities details: puzzles and coloring Sexually active: No Current gender identity: Female Lyn/Hinduism: Other Special lyn needs: No Agree to transfusion: Yes Financial difficulty paying for basics: Not Very Hard Female Reproductive History: Para: 3 Spontaneous abortions: No Physical Exam Const: COMMON NORMALS: no acute distress, average body habitus, patient oriented x3, no limitations, healthy appearing, alert and well nourished HENMT: COMMON NORMALS: normocephalic, atraumatic, hearing grossly normal bilaterally, external ears normal, EAC's normal, TM's normal bilaterally, Normal external nose present, Normal nasal mucous membranes and turbinates present, moist oral mucous membranes, oropharynx normal, dentition normal and gingiva normal HEAD & SCALP: normocephalic and atraumatic NOSE: Normal external nose present and Normal nasal mucous membranes and turbinates present EXTERNAL EAR: Yes external ears normal EXTERNAL AUDITORY CANAL: EAC's normal TYMPANIC MEMBRANE: TM's normal bilaterally Neck/C-Spine: COMMON NORMALS: full ROM, no lymphadenopathy, supple, no meningeal signs, no JVD, Thyroid normal and No carotid bruits THYROID: Thyroid normal Chest: COMMONS NORMALS: normal inspection of the chest, normal palpation of entire chest wall, normal inspection of the breasts and normal palpation of the breasts Breast/axilla inspection: Yes normal inspection of the breasts BREAST/AXILLA PALPATION: Yes normal palpation of the breasts Resp: COMMON NORMALS: normal respiratory effort, No retractions, No use of accessory muscles, clear to auscultation bilaterally and percussion normal AUSCULTATION: clear to auscultation bilaterally PERCUSSION: percussion normal Cardio: COMMON NORMALS: no JVD, regular rate, regular rhythm, S1 normal heart sound present, S2 normal heart sound present, No gallops present (Cardio), No clicks present (Cardio), No murmurs present (Cardio), No rub (Cardio) and Peripheral pulses 2+ throughout RATE: regular rate RHYTHM: regular rhythm HEART SOUNDS: S1 normal heart sound present and S2 normal heart sound present PERIPHERAL PULSES: Peripheral pulses 2+ throughout GI: COMMON NORMALS: Normal to inspection, nondistended, normoactive bowel sounds present, Soft to palpation, non-tender, No hepatosplenomegaly present, no masses and no bruits PALPATION: Yes Soft to palpation and Yes No hepatosplenomegaly present Back/Pelvis: COMMON NORMALS: thoracic and lumbar spine normal to inspection, no thoracic nor lumbar tenderness, thoraco-lumbar ROM normal and straight leg raise negative bilaterally Extremity: COMMON NORMALS: normal to inspection, full ROM, capillary refill normal, no joint enlargement, no clubbing, cyanosis or edema, no calf tenderness and no pedal edema Neuro: COMMON NORMALS: patient oriented x3 SENSORIUM/ORIENTATION: Yes alert MENINGEAL SIGNS: Yes no meningeal signs Course Reevaluation(s): Reevaluation #1: Negative evaluation in the emergency department any acute findings. Patient has had this chronic cough for months. Has been seen by pulmonology multiple family medicine providers. Patient reportedly has cough variant asthma. Patient is to continue all home medications. Cool-mist humidifier as instructed. Mucinex [id number] as needed. Follow-up with PCP or pulmonology in 2 to 3 days patient states understanding Time: 13:04 Vital Signs: Vital signs: Vital Signs Temperature 99.0 F 12/24/20 11:13 Pulse Rate 82 12/24/20 11:13 Respiratory Rate 18 12/24/20 11:13 Blood Pressure 181/71 12/24/20 11:13 Pulse Oximetry 98 12/24/20 11:13 MDM - General Adult MDM Narrative: Medical decision making narrative: Negative evaluation in the emergency department any acute findings. Patient has had this chronic cough for months. Has been seen by pulmonology multiple family medicine providers. Patient reportedly has cough variant asthma. Patient is to continue all home medications. Cool-mist humidifier as instructed. Mucinex [id number] as needed. Follow-up with PCP or pulmonology in 2 to 3 days patient states understanding Lab Data: Labs: Lab Results 12/24/20 12/24/20 12/24/20 Range/Units 09:52 09:52 09:52 WBC 5.6 (4.0-10.0) 10^3/ uL RBC 3.76 L (4.1-5.3) 10^6/u L Hgb 11.5 (11.5-15.3) g/dL Hct 35.4 L (37.0-47.0) % MCV 94.1 (81-99) fL MCH 30.6 (28.0-34.0) pg MCHC 32.5 (30.0-36.0) g/dL RDW 13.3 (12.1-15.1) % Plt Count 148 (130-400) 10^3/c mm MPV 11.4 H (7.4-10.4) fL Neut % (Auto) 71.2 % Lymph % (Auto) 17.5 % [place] % (Auto) 7.0 % Eos % (Auto) 3.2 % Baso % (Auto) 0.7 % Neut # (Auto) 4.00 (1.8-7.7) 10^3/u L Lymph # (Auto) 1.0 (0.8-4.8) 10^3/u L [place] # (Auto) 0.4 (0.2-0.9) 10^3/u L Eos # (Auto) 0.2 (0.0-0.8) 10^3/u L Baso # (Auto) 0.0 (0.0-0.1) 10^3/u L Nucleated RBC % (a uto) 0 % Nucleated RBCs # 0.0 /100WBC PT 14.20 (12.1-14.9) SECO NDS INR 1.07 (0.8-1.2) APTT 34.0 (23.9-36.7) SECO NDS Sodium 137 (136-145) mmol/L Potassium 4.0 (3.5-5.1) mmol/L Chloride 97 L (98-107) mmol/L Carbon Dioxide 27 (22-29) mmol/L Anion Gap 17.0 (5-19) BUN 19 (8-23) mg/dL Creatinine 0.8 (0.5-0.9) mg/dL GFR Calculation 73.2 L (90-130) mL/min Glucose 325 H (65-115) mg/dL Calculated Osmolal ity 299 H (285-295) mOsm/k g Calcium 8.5 (8.5-10.5) mg/dL Total Bilirubin 0.2 (0.15-1.2) mg/dL AST 37 H (0-32) U/L ALT 25 (0-33) U/L Alkaline Phosphata se 98 (35-105) IU/L Troponin T Baselin e (0-10) ng/L Troponin T 120 Min kelechi (0-10) ng/L Delta Troponin T (0-10) ABS# NT-Pro-B Natriuret Pep 73 (0-125) pg/mL Total Protein 6.1 L (6.6-8.7) g/dL Albumin 3.7 (3.5-5.2) g/dL Globulin 2.4 (1.3-4.6) g/dL SARS-CoV-2 Ag (Rap id) (Negative) 12/24/20 12/24/20 12/24/20 Range/Units 09:52 12:02 12:11 WBC (4.0-10.0) 10^3/ uL RBC (4.1-5.3) 10^6/u L Hgb (11.5-15.3) g/dL Hct (37.0-47.0) % MCV (81-99) fL MCH (28.0-34.0) pg MCHC (30.0-36.0) g/dL RDW (12.1-15.1) % Plt Count (130-400) 10^3/c mm MPV (7.4-10.4) fL Neut % (Auto) % Lymph % (Auto) % [place] % (Auto) % Eos % (Auto) % Baso % (Auto) % Neut # (Auto) (1.8-7.7) 10^3/u L Lymph # (Auto) (0.8-4.8) 10^3/u L [place] # (Auto) (0.2-0.9) 10^3/u L Eos # (Auto) (0.0-0.8) 10^3/u L Baso # (Auto) (0.0-0.1) 10^3/u L Nucleated RBC % (a uto) % Nucleated RBCs # /100WBC PT (12.1-14.9) SECO NDS INR (0.8-1.2) APTT (23.9-36.7) SECO NDS Sodium (136-145) mmol/L Potassium (3.5-5.1) mmol/L Chloride (98-107) mmol/L Carbon Dioxide (22-29) mmol/L Anion Gap (5-19) BUN (8-23) mg/dL Creatinine (0.5-0.9) mg/dL GFR Calculation (90-130) mL/min Glucose (65-115) mg/dL Calculated Osmolal ity (285-295) mOsm/k g Calcium (8.5-10.5) mg/dL Total Bilirubin (0.15-1.2) mg/dL AST (0-32) U/L ALT (0-33) U/L Alkaline Phosphata se (35-105) IU/L Troponin T Baselin e 9 (0-10) ng/L Troponin T 120 Min kelechi 7.59 (0-10) ng/L Delta Troponin T -1.41 L (0-10) ABS# NT-Pro-B Natriuret Pep (0-125) pg/mL Total Protein (6.6-8.7) g/dL Albumin (3.5-5.2) g/dL Globulin (1.3-4.6) g/dL SARS-CoV-2 Ag (Rap id) Negative (Negative) Imaging Data^: CXR: Attestation: I personally reviewed and interpreted this imaging study as follows: Radiologist's impression: IMPRESSION: No acute findings. EKG Data^: EKG 1: Attestation: I personally reviewed and interpreted this EKG as follows: EKG interpretation date: 12/24/20 EKG interpretation time: 12:07 Prior EKG tracings: not available for review Ischemic changes: non-specific ST-T wave changes Interpretation: Sinus rhythm heart rate 75 nonspecific T wave changes. Computer generated interpretation: Chest X-Ray 12/24/20 11:11 IMPRESSION: No acute findings. Discharge Plan Discharge Patient Disposition: Home Clinical Impression: Upper respiratory infection, Cough Condition: Stable Prescriptions: No Action isosorbide mononitrate 120 mg tablet extended release 24 hr 120 mg PO DAILY 90 Days Qty: 90 RF: 3 ipratropium-albuterol 0.5 mg-3 mg(2.5 mg base)/3 mL solution for nebulization 3 ml INHALATION QID RF: 0 (DME) blood sugar diagnostic Strip See Rx Instructions .ROUTE .MEDSUPPLY Qty: 100 RF: 5 insulin aspart U-100 [Novolog Flexpen U-100 Insulin] 100 unit/mL (3 mL) insulin pen See Rx Instructions .ROUTE .COMPLEX RF: 0 pantoprazole 40 mg tablet,delayed release (DR/EC) 40 mg PO BID RF: 0 trazodone 50 mg tablet 50 mg PO .bedtime RF: 0 fluticasone propionate [Flonase Allergy Relief] 50 mcg/actuation spray,suspension 1 spray intranasal DAILY RF: 0 diphenhydramine HCl [Benadryl] 25 mg capsule 25 mg PO TID PRNRF: 0 Combivent Respimat 20-100 mcg/actuation mist 1 puff inhalation BID RF: 0 nitroglycerin 0.4 mg tablet, sublingual 0.4 mg SUBLINGUAL Q5M PRN (Reason: chest pain) Qty: 25 RF: 5 hydralazine 100 mg tablet 100 mg PO TID Qty: 90 RF: 5 Spiriva with HandiHaler 18 mcg capsule, w/inhalation device 1 cap inhalation DAILY Qty: 60 RF: 3 montelukast [Singulair] 10 mg tablet 10 mg PO DAILY Qty: 30 RF: 3 (DME) oxygen-air delivery systems Device See Rx Instructions .Route RF: 0 (DME) blood-glucose meter [OneTouch Verio Flex Start] Kit See Rx Instructions .ROUTE .MEDSUPPLY Qty: 1 RF: 0 aspirin 81 mg tablet,chewable 81 mg PO DAILY RF: 0 pregabalin [Lyrica] 150 mg capsule See Rx Instructions .ROUTE .COMPLEX 30 Days Qty: 120 RF: 2 (DME) Provide B12 injection See Rx Instructions .Route .MEDSUPPLY Qty: 1 RF: 0 fluticasone propion-salmeterol [Advair Diskus] 500-50 mcg/dose blister with device 1 inh INHALATION BID Qty: 60 RF: 5 magnesium oxide 400 mg (241.3 mg magnesium) tablet See Rx Instructions .ROUTE .COMPLEX Qty: 90 RF: 2 amlodipine 10 mg tablet See Rx Instructions .ROUTE .COMPLEX Qty: 30 RF: 5 (DME) lancets [[employer] Lancets] 30 gauge misc See Rx Instructions .ROUTE .MEDSUPPLY Qty: 100 RF: 5 Januvia 100 mg tablet 100 mg PO DAILY 90 Days Qty: 90 RF: 1 clopidogrel 75 mg tablet 75 mg PO DAILY Qty: 90 RF: 3 cyanocobalamin (vitamin B-12) 1,000 mcg/mL solution See Rx Instructions .ROUTE .COMPLEX Qty: 4 RF: 2 cetirizine 10 mg tablet See Rx Instructions .ROUTE .COMPLEX Qty: 30 RF: 5 OneTouch Ultra Blue Test Strip Strip See Rx Instructions .ROUTE .COMPLEX Qty: 100 RF: 5 (DME) pen needle, diabetic [BD Ultra-Fine Dori Pen Needle] 32 gauge x 5/32 needle See Rx Instructions .ROUTE .MEDSUPPLY Qty: 150 RF: 6 ergocalciferol (vitamin D2) 1,250 mcg (50,000 unit) capsule See Rx Instructions .ROUTE .COMPLEX Qty: 4 RF: 5 sucralfate 1 gram tablet See Rx Instructions .ROUTE .COMPLEX Qty: 60 RF: 2 metoprolol tartrate 25 mg tablet 25 mg PO BID 30 Days Qty: 60 RF: 5 Tresiba FlexTouch U-100 100 unit/mL (3 mL) insulin pen See Rx Instructions .ROUTE .COMPLEX Qty: 60 RF: 2 rosuvastatin 20 mg tablet See Rx Instructions .ROUTE .COMPLEX Qty: 90 RF: 1 ropinirole 4 mg tablet See Rx Instructions .ROUTE .COMPLEX Qty: 30 RF: 2 desvenlafaxine succinate 50 mg tablet extended release 24 hr See Rx Instructions .ROUTE .COMPLEX Qty: 30 RF: 2 aripiprazole 10 mg tablet See Rx Instructions .ROUTE .COMPLEX Qty: 30 RF: 2 acyclovir 200 mg capsule See Rx Instructions .ROUTE .COMPLEX Qty: 60 RF: 0 furosemide 20 mg tablet 20 mg PO .every other day Qty: 45 RF: 3 potassium chloride 10 mEq tablet extended release See Rx Instructions .ROUTE .COMPLEX Qty: 30 RF: 5 albuterol sulfate 90 mcg/actuation Hfa Aerosol Inhaler 2 puff INHALATION QID PRN (Reason: Shortness Of Breath) RF: 0 Discharge Orders: Discharge ED (Routine); Ordered 12/24/20 Ordered By: Aldair Farah Referrals: ABELINO Alegria, ENVIRONMENTAL PERMITTING SPECIALIST [Primary Care Provider] - Patient Instructions: Opioid Safety Coding Level of Care Code 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
[2020-12-24 11:13] VITALS: BP 181/71; PULSE 82; RESP 18; TEMP 37.2; O2SAT 98; BMI 54.5
[2020-12-24 11:21] VITALS: O2SAT 98
[2020-12-24 11:42] LABS: Basophils % 0.7 %; Eosinophils # 0.2 10^3/uL (0.0-0.8); Eosinophils % 3.2 %; Hematocrit 35.4 % (37.0-47.0); Hemoglobin 11.5 g/dL (11.5-15.3); Lymphocytes % 17.5 %; Mean Corpuscular HGB Conc 32.5 g/dL (30.0-36.0); Mean Corpuscular Hemoglobin 30.6 pg (28.0-34.0); Mean Corpuscular Volume 94.1 fL (81-99); Mean Platelet Volume 11.4 fL (7.4-10.4); Monocytes # 0.4 10^3/uL (0.2-0.9); Neutrophils % 71.2 %; Nucleated Red Blood Cells % 0 %; Platelet Count 148 10^3/cmm (130-400); Red Blood Count 3.76 10^6/uL (4.1-5.3); Red Cell Distribution Width 13.3 % (12.1-15.1); White Blood Count 5.6 10^3/uL (4.0-10.0)
[2020-12-24 11:54] LABS: INR 1.07 (0.8-1.2)
[2020-12-24 12:04] LABS: Alanine Aminotransferase 25 U/L (0-33); Albumin Level 3.7 g/dL (3.5-5.2); Alkaline Phosphatase 98 IU/L (35-105); Aspartate Amino Transferase 37 U/L (0-32); Blood Urea Nitrogen 19 mg/dL (8-23); Calcium 8.5 mg/dL (8.5-10.5); Carbon Dioxide 27 mmol/L (22-29); Chloride 97 mmol/L (98-107); Creatinine Clr Calc Pharmacy 144.5826; Globulin 2.4 g/dL (1.3-4.6); Glomerular Filtration Rate 73.2 mL/min (90-130); Glucose 325 mg/dL (65-115); Osmolality Calculated 299 mOsm/kg (285-295); Sodium 137 mmol/L (136-145); Total Bilirubin 0.2 mg/dL (0.15-1.2); Total Protein 6.1 g/dL (6.6-8.7)
[2020-12-24 12:31] LABS: Troponin 5 2HR 7.59 ng/L (0-10)
[2020-12-24 12:36] LABS: Troponin(5th) Baseline 9 ng/L (0-10)
[2020-12-24 12:45] LABS: NT Pro B Type Natriuretic Pept 73 pg/mL (0-125)
[2020-12-24 12:50] LABS: SARS Covid-2 Antigen Negative (Negative)
[2020-12-24 12:54] LABS: Troponin 5 2HR Delta -1.41 ABS# (0-10)
[2020-12-24 13:34] LABS: Add Urine Microscopic? YES; Bilirubin Urine Neg (Negative); Blood Urine Neg (Negative); Glucose Urine UA 4+ (Normal); Ketones Urine Negative (Negative); Leukocyte Esterase Urine Negative (Negative); Nitrate Urine Positive (Negative); Protein Urine Neg (Negative); Urine Appearance Cloudy (CLEAR); Urine Color Straw (Yellow); Urobilinogen Urine Norm (Negative); pH Urine 5 (5-7)
[2020-12-24 13:37] LABS: Bacteria Urine 3+ /hpf; RBC Urine 0-4 /hpf (0-2); Squamous Epithelial Cell Urine 0-4 /hpf (0-5)
[2020-12-24 13:38] LABS: Add Urine Culture? Yes
[2020-12-24 13:51] VITALS: BP 165/69; PULSE 73; RESP 17; O2SAT 98
== END 2020-12-24 13:51 | disposition home or self-care (01) ==
PROVIDERS: Emergency Provider Emergency Medicine; PCP Nurse Practitioner Family
DX: J06.9 Acute upper respiratory infection, unspecified (principal); Z79.02 Long term (current) use of antithrombotics/antiplatelets; Z79.82 Long term (current) use of aspirin; Z79.4 Long term (current) use of insulin; I25.10 Atherosclerotic heart disease of native coronary artery without angina pectoris; E11.40 Type 2 diabetes mellitus with diabetic neuropathy, unspecified; I10 Essential (primary) hypertension; E78.2 Mixed hyperlipidemia; F01.50 Vascular dementia, unspecified severity, without behavioral disturbance, psychotic disturbance, mood disturbance, and anxiety; Z77.22 Contact with and (suspected) exposure to environmental tobacco smoke (acute) (chronic); Z20.822 Contact with and (suspected) exposure to COVID-19
CPT/HCPCS: 71045; 80053; 81001; 83880; 84484; 85025; 85610; 85730; 87077; 87086; 87186; 87426; 93005; 99283

== ENCOUNTER 2020-12-28 16:18 | Emergency (ER) | payer MEDICAID, SELFPAY ==
[2020-10-23 13:54] VITALS: BP 156/86; BMI 54.1
[2020-12-28 16:18] VITALS: BMI 54.5
[2020-12-28 16:30] VITALS: BP 148/82; PULSE 79; RESP 20; TEMP 36.9; O2SAT 98
--- NOTE | 2020-12-28 16:31 | XRR_ITS ---
PROCEDURE INFORMATION: Exam: XR Chest Exam date and time: 12/28/2020 4:31 PM Age: 60 years old Clinical indication: Cough TECHNIQUE: Imaging protocol: XR of the chest. Views: 1 view. Total images: 1 COMPARISON: CR (CHEST, ) 12/24/2020 11:22 AM FINDINGS: Lungs: No visible active interstitial or alveolar airspace disease. Pleural spaces: Unremarkable. No pleural effusion. No pneumothorax. Heart/Mediastinum: Cardiac structures and configuration with mild arteriosclerosis. Bones/joints: Unremarkable. Other findings: Obesity. XR/XR chest 1V portable [id number] IMPRESSION: Nonacute.
--- NOTE | 2020-12-28 16:31 | W.ED.URI ---
Documented by User: ELVIS Carnes 12/28/20 16:44 HPI - URI/Sore Throat General: Chief Complaint: General Medical Stated Complaint: DIFFICULTY BREATHING/ COUGHING Time Seen by Provider: 12/28/20 16:23 Source: patient Mode of arrival: EMS Limitations: no limitations History of Present Illness: HPI Narrative: Patient is a 60-year-old female with a history of CAD, DM, FRANKIE asthma, morbid obesity, and HTN who presents to ED today with a complaint of cough and shortness of breath. Patient tells me she has had the cough over the past 5 to 6 days. She was seen at our facility on Thursday for that complaint. Looking at previous documentation patient saw Dr. Chávez recently (12/13) and at that visit had complained of a non-productive cough for the past 2 months. Pulmonology felt chronic cough was likely secondary to asthma. They felt SOB was multifactorial-asthma/morbid obesity/CAD/fluid overload. PFTs showed mild restriction. She has not been running fevers. She has not had to increase O2. COVID from Thursday was negative. MD elicited complaint: cough and other (SOB) Pertinent past history: asthma and seasonal allergies Onset (ago): day(s) Consistency: intermittent Able to tolerate fluids by mouth: Yes Exacerbating factors: nothing Relieving factors: nothing Associated symptoms: Deny abdominal pain, chills, chest pain, diarrhea, fever(s), headache(s), nasal congestion, nausea or vomiting Treatments prior to arrival: none Review of Systems Const: Denies: fever(s), chills, body aches, fatigue or malaise Eyes: Denies: change in vision or blurry vision ENMT: Denies: throat pain, odynophagia, nasal discharge or nasal congestion Card: Reports: dyspnea on exertion (chronic); Denies: chest pain, palpitations, irregular heart rhythm or lightheadedness Resp: Reports: dyspnea (chronic) and non-productive cough GI: Denies: abdominal pain, nausea, vomiting or diarrhea Musc: Denies: neck pain or back pain Skin/Breast: Denies: rash Neuro: Denies: headache(s) PFSH ED PFSH: Medical History Anemia Atherosclerosis of coronary artery of wiyot heart with angina pectoris Atherosclerotic heart disease of wiyot coronary artery with other forms of angina pectoris Chronic back pain Cough Diabetes Diabetic neuropathy Dyslipidemia (high LDL; low HDL) Dysuria Essential hypertension Hematuria Insomnia Knee arthropathy Lower respiratory tract infection 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 Major depression, recurrent, full remission Major depressive disorder, recurrent, in full remission Mixed hyperlipidemia Morbid obesity with BMI of 50.0-59.9, adult Obstructive sleep apnea Restless legs syndrome Syncope Urinary tract infection Vascular dementia without behavioral disturbance Vitamin B12 deficiency anemia Vitamin D deficiency Surgical History History of arthroscopic knee surgery Bilateral History of section, classical History of cholecystectomy History of hysterectomy Hx of cardiac cath April 2016 Family History Mother Cancer Acute leukemia Father CAD (coronary artery disease) Anesthesia complication Family history of premature coronary artery disease Stroke Suicide Hypertension Brother Diabetes Family history of premature coronary artery disease Hypertension Sister Diabetes Family history of premature coronary artery disease Hypertension Denies family history of Clotting disorder Dementia Chronic kidney disease (CKD) Bleeding disorder Lung disease Social History Smoking and tobacco status: never smoked Second hand smoke exposure: Yes Smoking risk assessment/counseling performed?: Yes Alcohol intake: never Desire information about alcohol rehabilitation?: No Counseling given: No Desire information about substance/drug rehabilitation?: No Counseling given: No Adopted: No Caregiver/support person: Yes Lives independently: Yes Household members: none Housing: Apartment Marital status: Number of children: 3 Number of grandchildren: 3 Highest education level completed: 8th Grade Current occupational status: disabled Pets and animals: No History of recent travel: No Leisure activites: other Leisure activities details: puzzles and coloring Sexually active: No Current gender identity: Female Lyn/Gnosticism: Other Special lyn needs: No Agree to transfusion: Yes Financial difficulty paying for basics: Not Very Hard Female Reproductive History: Para: 3 Spontaneous abortions: No Physical Exam Const: COMMON NORMALS: patient oriented x3, no limitations and alert GENERAL APPEARANCE: cooperative NUTRITIONAL APPEARANCE: obese morbidly obese ORIENTATION/CONSCIOUSNESS: Yes awake, Yes oriented to person, Yes oriented to place and Yes oriented to time HENMT: COMMON NORMALS: normocephalic and atraumatic HEAD & SCALP: normocephalic and atraumatic Resp: COMMON NORMALS: normal respiratory effort EFFORT & INSPECTION: Yes other (non-productive barky cough) AUSCULTATION: wheezes (scattered) Cardio: COMMON NORMALS: regular rate and regular rhythm RATE: regular rate RHYTHM: regular rhythm Extremity: GENERAL: Yes edema (non-pitting) Neuro: COMMON NORMALS: patient oriented x3 SENSORIUM/ORIENTATION: Yes alert, Yes oriented to person, Yes oriented to place and Yes oriented to time Skin: COMMON NORMALS: no rashes or lesions noted GENERAL SKIN EXAM: no rashes or lesions noted Course Vital Signs: Vital signs: Vital Signs Temperature 98.5 F 12/28/20 16:30 Pulse Rate 77 12/28/20 17:30 Respiratory Rate 18 12/28/20 17:30 Blood Pressure 143/82 12/28/20 17:30 Pulse Oximetry 92 12/28/20 17:30 MDM - URI/Sore Throat Lab Data: Labs: Lab Results 12/28/20 12/28/20 12/28/20 Range/Units 17:24 17:24 17:24 WBC 11.0 H (4.0-10.0) 10^3/ uL RBC 4.32 (4.1-5.3) 10^6/u L Hgb 13.1 (11.5-15.3) g/dL Hct 41.0 (37.0-47.0) % MCV 94.9 (81-99) fL MCH 30.3 (28.0-34.0) pg MCHC 32.0 (30.0-36.0) g/dL RDW 13.1 (12.1-15.1) % Plt Count 193 (130-400) 10^3/c mm MPV 10.9 H (7.4-10.4) fL Neut % (Auto) 76.4 % Lymph % (Auto) 17.0 % Hickman % (Auto) 5.0 % Eos % (Auto) 0.6 % Baso % (Auto) 0.5 % Neut # (Auto) 8.38 H (1.8-7.7) 10^3/u L Lymph # (Auto) 1.9 (0.8-4.8) 10^3/u L Hickman # (Auto) 0.6 (0.2-0.9) 10^3/u L Eos # (Auto) 0.1 (0.0-0.8) 10^3/u L Baso # (Auto) 0.1 (0.0-0.1) 10^3/u L Nucleated RBC % (a uto) 0 % Nucleated RBCs # 0.0 /100WBC Sodium 140 (136-145) mmol/L Potassium 3.7 (3.5-5.1) mmol/L Chloride 102 (98-107) mmol/L Carbon Dioxide 25 (22-29) mmol/L Anion Gap 16.7 (5-19) BUN 14 (8-23) mg/dL Creatinine 0.7 (0.5-0.9) mg/dL GFR Calculation 85.4 L (90-130) mL/min Glucose 173 H (65-115) mg/dL Calculated Osmolal ity 295 (285-295) mOsm/k g Calcium 9.5 (8.5-10.5) mg/dL Total Bilirubin 0.3 (0.15-1.2) mg/dL AST 59 H (0-32) U/L ALT 38 H (0-33) U/L Alkaline Phosphata se 80 (35-105) IU/L Total Protein 7.0 (6.6-8.7) g/dL Albumin 4.0 (3.5-5.2) g/dL Globulin 3.0 (1.3-4.6) g/dL SARS-CoV-2 Ag (Rap id) Negative (Negative) Discharge Plan Discharge Patient Disposition: Home Clinical Impression: Bronchitis Condition: Stable Prescriptions: New ipratropium-albuterol 0.5 mg-3 mg(2.5 mg base)/3 mL solution for nebulization 3 ml inhalation Q6H PRN (Reason: shortness of breath or wheezing) Qty: 180 RF: 0 clindamycin HCl 300 mg capsule 300 mg PO TID 7 Days Qty: 21 RF: 0 No Action isosorbide mononitrate 120 mg tablet extended release 24 hr 120 mg PO DAILY 90 Days Qty: 90 RF: 3 (DME) blood sugar diagnostic Strip See Rx Instructions .ROUTE .MEDSUPPLY Qty: 100 RF: 5 insulin aspart U-100 [Novolog Flexpen U-100 Insulin] 100 unit/mL (3 mL) insulin pen See Rx Instructions .ROUTE .COMPLEX RF: 0 pantoprazole 40 mg tablet,delayed release (DR/EC) 40 mg PO BID RF: 0 fluticasone propionate [Flonase Allergy Relief] 50 mcg/actuation spray,suspension 1 spray intranasal DAILY RF: 0 diphenhydramine HCl [Benadryl] 25 mg capsule 25 mg PO TID PRN (Reason: allergy/cold symptoms) RF: 0 Combivent Respimat 20-100 mcg/actuation mist 1 puff inhalation BID RF: 0 nitroglycerin 0.4 mg tablet, sublingual 0.4 mg SUBLINGUAL Q5M PRN (Reason: chest pain) Qty: 25 RF: 5 hydralazine 100 mg tablet 100 mg PO TID Qty: 90 RF: 5 Spiriva with HandiHaler 18 mcg capsule, w/inhalation device 1 cap inhalation DAILY Qty: 60 RF: 3 montelukast [Singulair] 10 mg tablet 10 mg PO DAILY Qty: 30 RF: 3 (DME) oxygen-air delivery systems Device See Rx Instructions .Route RF: 0 (DME) blood-glucose meter [Pixel Qi Verio Flex Start] Kit See Rx Instructions .ROUTE .MEDSUPPLY Qty: 1 RF: 0 aspirin 81 mg tablet,chewable 81 mg PO DAILY RF: 0 (DME) Provide B12 injection See Rx Instructions .Route .MEDSUPPLY Qty: 1 RF: 0 fluticasone propion-salmeterol [Advair Diskus] 500-50 mcg/dose blister with device 1 inh INHALATION BID Qty: 60 RF: 5 (DME) lancets [DATANG MOBILE COMMUNICATIONS EQUIPMENTTouch Delica Lancets] 30 gauge misc See Rx Instructions .ROUTE .MEDSUPPLY Qty: 100 RF: 5 Januvia 100 mg tablet 100 mg PO DAILY 90 Days Qty: 90 RF: 1 clopidogrel 75 mg tablet 75 mg PO DAILY Qty: 90 RF: 3 cyanocobalamin (vitamin B-12) 1,000 mcg/mL solution See Rx Instructions .ROUTE .COMPLEX Qty: 4 RF: 2 OneTouch Ultra Blue Test Strip Strip See Rx Instructions .ROUTE .COMPLEX Qty: 100 RF: 5 (DME) pen needle, diabetic [BD Ultra-Fine Dori Pen Needle] 32 gauge x 5/32 needle See Rx Instructions .ROUTE .MEDSUPPLY Qty: 150 RF: 6 metoprolol tartrate 25 mg tablet 25 mg PO BID 30 Days Qty: 60 RF: 5 albuterol sulfate 90 mcg/actuation Hfa Aerosol Inhaler 2 puff INHALATION QID PRN (Reason: Shortness Of Breath) RF: 0 1 tab PO DAILY RF: 0 cetirizine 10 mg tablet 10 mg PO DAILY RF: 0 amlodipine 10 mg tablet 10 mg PO DAILY RF: 0 acyclovir 200 mg capsule 200 mg PO BID RF: 0 aripiprazole 10 mg tablet 10 mg PO DAILY RF: 0 trazodone 50 mg tablet 100 mg PO DAILY RF: 0 sucralfate 1 gram tablet 1 g PO BID PRN (Reason: GERD) RF: 0 potassium chloride 10 mEq tablet extended release 10 meq PO DAILY RF: 0 magnesium oxide 400 mg (241.3 mg magnesium) tablet 400 mg PO DAILY RF: 0 furosemide 20 mg tablet 20 mg PO Q2D RF: 0 ergocalciferol (vitamin D2) 1,250 mcg (50,000 unit) capsule 1,250 mcg PO Q7D RF: 0 ropinirole 4 mg tablet 4 mg PO DAILY RF: 0 rosuvastatin 20 mg tablet 20 mg PO DAILY RF: 0 desvenlafaxine succinate 50 mg tablet extended release 24 hr 50 mg PO DAILY RF: 0 Tresiba FlexTouch U-100 100 unit/mL (3 mL) insulin pen 60 unit SUBCUT BID RF: 0 Discharge Orders: Discharge ED (Routine); Ordered 12/28/20 Ordered By: Oneil Barcenas Referrals: ABELINO Alegria, DRUG ABUSE RESISTANCE EDUCATION OFFICER [Primary Care Provider] - Discharge Diet: Usual diet Discharge Activity: Increase activity as tolerated Patient Instructions: Acute Bronchitis (ED), Opioid Safety Activity Restrictions/Additional Instructions: Take medications as directed. He will use clindamycin 300 mg 3 times a day for the next 7 days for your antibiotic. You will use your routine inhalers as directed. Use the nebulizer solution every 6 hours as needed for cough, wheezing, or congestion. Make sure to drink plenty of water follow-up with primary care in 1 week return to the ER for new concerns. Sign Out Sign Out Data: Patient Sign Out occurred on 12/28/20 at 16:59. Patient's care was discussed, and care was transferred from to Oneil Barcenas. Coding Level of Care Code ED Language Arts Teacher for Chg Fwd Exam Detailed Documented by User: MAGDIEL Mora 12/28/20 18:42 HPI - URI/Sore Throat General: Chief Complaint: General Medical Stated Complaint: DIFFICULTY BREATHING/ COUGHING Time Seen by Provider: 12/28/20 16:23 PFSH ED PFSH: Medical History Anemia Atherosclerosis of coronary artery of wiyot heart with angina pectoris Atherosclerotic heart disease of wiyot coronary artery with other forms of angina pectoris Chronic back pain Cough Diabetes Diabetic neuropathy Dyslipidemia (high LDL; low HDL) Dysuria Essential hypertension Hematuria Insomnia Knee arthropathy Lower respiratory tract infection 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 Major depression, recurrent, full remission Major depressive disorder, recurrent, in full remission Mixed hyperlipidemia Morbid obesity with BMI of 50.0-59.9, adult Obstructive sleep apnea Restless legs syndrome Syncope Urinary tract infection Vascular dementia without behavioral disturbance Vitamin B12 deficiency anemia Vitamin D deficiency Surgical History History of arthroscopic knee surgery Bilateral History of section, classical History of cholecystectomy History of hysterectomy Hx of cardiac cath April 2016 Family History Mother Cancer Acute leukemia Father CAD (coronary artery disease) Anesthesia complication Family history of premature coronary artery disease Stroke Suicide Hypertension Brother Diabetes Family history of premature coronary artery disease Hypertension Sister Diabetes Family history of premature coronary artery disease Hypertension Denies family history of Clotting disorder Dementia Chronic kidney disease (CKD) Bleeding disorder Lung disease Social History Smoking and tobacco status: never smoked Second hand smoke exposure: Yes Smoking risk assessment/counseling performed?: Yes Alcohol intake: never Desire information about alcohol rehabilitation?: No Counseling given: No Desire information about substance/drug rehabilitation?: No Counseling given: No Adopted: No Caregiver/support person: Yes Lives independently: Yes Household members: none Housing: Apartment Marital status: Number of children: 3 Number of grandchildren: 3 Highest education level completed: 8th Grade Current occupational status: disabled Pets and animals: No History of recent travel: No Leisure activites: other Leisure activities details: puzzles and coloring Sexually active: No Current gender identity: Female Lyn/Gnosticism: Other Special lyn needs: No Agree to transfusion: Yes Financial difficulty paying for basics: Not Very Hard Course ED course: 1700, Assumed care patient from Yelitza Sharma PA-C, patient is resting well without any signs of distress. Vital Signs: Vital signs: Vital Signs Temperature 98.5 F 12/28/20 16:30 Pulse Rate 77 12/28/20 17:30 Respiratory Rate 18 12/28/20 17:30 Blood Pressure 143/82 12/28/20 17:30 Pulse Oximetry 92 12/28/20 17:30 MDM - URI/Sore Throat MDM Narrative: Medical decision making narrative: Patient comes in today for complaints of cough persistent cough for the last 2 weeks. Patient was evaluated on Thursday and Covid test was negative at that time. Patient comes back today cementing to have no improvement in symptoms. On exam patient has a harsh cough. Lungs are decreased in the bases. Vital signs are normal. Differential diagnosis includes but not limited to pneumonia, bronchitis, exacerbation of asthma. Chest x-ray indicated no acute process. Laboratory values did see a bump in the white blood cell count from 5-11. Remainder of labs were unremarkable. COVID-19 test was negative. Suspect patient has a bronchitis we will go ahead and treat her with 1 dose of dexamethasone 10 mg and then start her on some clindamycin 300 mg 3 times a day for the next 7 days. We are limited on antibiotic usage due to patient's reported allergens. I encourage plenty of fluids and follow-up with primary care for further instruction. I also wrote for patient to get some albuterol with ipratropium nebulizer solution for breathing treatments 4 times a day for the next week. Lab Data: Labs: Lab Results 12/28/20 12/28/20 12/28/20 Range/Units 17:24 17:24 17:24 WBC 11.0 H (4.0-10.0) 10^3/ uL RBC 4.32 (4.1-5.3) 10^6/u L Hgb 13.1 (11.5-15.3) g/dL Hct 41.0 (37.0-47.0) % MCV 94.9 (81-99) fL MCH 30.3 (28.0-34.0) pg MCHC 32.0 (30.0-36.0) g/dL RDW 13.1 (12.1-15.1) % Plt Count 193 (130-400) 10^3/c mm MPV 10.9 H (7.4-10.4) fL Neut % (Auto) 76.4 % Lymph % (Auto) 17.0 % Hickman % (Auto) 5.0 % Eos % (Auto) 0.6 % Baso % (Auto) 0.5 % Neut # (Auto) 8.38 H (1.8-7.7) 10^3/u L Lymph # (Auto) 1.9 (0.8-4.8) 10^3/u L Hickman # (Auto) 0.6 (0.2-0.9) 10^3/u L Eos # (Auto) 0.1 (0.0-0.8) 10^3/u L Baso # (Auto) 0.1 (0.0-0.1) 10^3/u L Nucleated RBC % (a uto) 0 % Nucleated RBCs # 0.0 /100WBC Sodium 140 (136-145) mmol/L Potassium 3.7 (3.5-5.1) mmol/L Chloride 102 (98-107) mmol/L Carbon Dioxide 25 (22-29) mmol/L Anion Gap 16.7 (5-19) BUN 14 (8-23) mg/dL Creatinine 0.7 (0.5-0.9) mg/dL GFR Calculation 85.4 L (90-130) mL/min Glucose 173 H (65-115) mg/dL Calculated Osmolal ity 295 (285-295) mOsm/k g Calcium 9.5 (8.5-10.5) mg/dL Total Bilirubin 0.3 (0.15-1.2) mg/dL AST 59 H (0-32) U/L ALT 38 H (0-33) U/L Alkaline Phosphata se 80 (35-105) IU/L Total Protein 7.0 (6.6-8.7) g/dL Albumin 4.0 (3.5-5.2) g/dL Globulin 3.0 (1.3-4.6) g/dL SARS-CoV-2 Ag (Rap id) Negative (Negative) Discharge Plan Discharge Patient Disposition: Home Clinical Impression: Bronchitis Condition: Stable Prescriptions: New ipratropium-albuterol 0.5 mg-3 mg(2.5 mg base)/3 mL solution for nebulization 3 ml inhalation Q6H PRN (Reason: shortness of breath or wheezing) Qty: 180 RF: 0 clindamycin HCl 300 mg capsule 300 mg PO TID 7 Days Qty: 21 RF: 0 No Action isosorbide mononitrate 120 mg tablet extended release 24 hr 120 mg PO DAILY 90 Days Qty: 90 RF: 3 (DME) blood sugar diagnostic Strip See Rx Instructions .ROUTE .MEDSUPPLY Qty: 100 RF: 5 insulin aspart U-100 [Novolog Flexpen U-100 Insulin] 100 unit/mL (3 mL) insulin pen See Rx Instructions .ROUTE .COMPLEX RF: 0 pantoprazole 40 mg tablet,delayed release (DR/EC) 40 mg PO BID RF: 0 fluticasone propionate [Flonase Allergy Relief] 50 mcg/actuation spray,suspension 1 spray intranasal DAILY RF: 0 diphenhydramine HCl [Benadryl] 25 mg capsule 25 mg PO TID PRN (Reason: allergy/cold symptoms) RF: 0 Combivent Respimat 20-100 mcg/actuation mist 1 puff inhalation BID RF: 0 nitroglycerin 0.4 mg tablet, sublingual 0.4 mg SUBLINGUAL Q5M PRN (Reason: chest pain) Qty: 25 RF: 5 hydralazine 100 mg tablet 100 mg PO TID Qty: 90 RF: 5 Spiriva with HandiHaler 18 mcg capsule, w/inhalation device 1 cap inhalation DAILY Qty: 60 RF: 3 montelukast [Singulair] 10 mg tablet 10 mg PO DAILY Qty: 30 RF: 3 (DME) oxygen-air delivery systems Device See Rx Instructions .Route RF: 0 (DME) blood-glucose meter [DATANG MOBILE COMMUNICATIONS EQUIPMENTTouch Verio Flex Start] Kit See Rx Instructions .ROUTE .MEDSUPPLY Qty: 1 RF: 0 aspirin 81 mg tablet,chewable 81 mg PO DAILY RF: 0 (DME) Provide B12 injection See Rx Instructions .Route .MEDSUPPLY Qty: 1 RF: 0 fluticasone propion-salmeterol [Advair Diskus] 500-50 mcg/dose blister with device 1 inh INHALATION BID Qty: 60 RF: 5 (DME) lancets [OneTouch Delica Lancets] 30 gauge misc See Rx Instructions .ROUTE .MEDSUPPLY Qty: 100 RF: 5 Januvia 100 mg tablet 100 mg PO DAILY 90 Days Qty: 90 RF: 1 clopidogrel 75 mg tablet 75 mg PO DAILY Qty: 90 RF: 3 cyanocobalamin (vitamin B-12) 1,000 mcg/mL solution See Rx Instructions .ROUTE .COMPLEX Qty: 4 RF: 2 OneTouch Ultra Blue Test Strip Strip See Rx Instructions .ROUTE .COMPLEX Qty: 100 RF: 5 (DME) pen needle, diabetic [BD Ultra-Fine Dori Pen Needle] 32 gauge x 5/32 needle See Rx Instructions .ROUTE .MEDSUPPLY Qty: 150 RF: 6 metoprolol tartrate 25 mg tablet 25 mg PO BID 30 Days Qty: 60 RF: 5 albuterol sulfate 90 mcg/actuation Hfa Aerosol Inhaler 2 puff INHALATION QID PRN (Reason: Shortness Of Breath) RF: 0 1 tab PO DAILY RF: 0 cetirizine 10 mg tablet 10 mg PO DAILY RF: 0 amlodipine 10 mg tablet 10 mg PO DAILY RF: 0 acyclovir 200 mg capsule 200 mg PO BID RF: 0 aripiprazole 10 mg tablet 10 mg PO DAILY RF: 0 trazodone 50 mg tablet 100 mg PO DAILY RF: 0 sucralfate 1 gram tablet 1 g PO BID PRN (Reason: GERD) RF: 0 potassium chloride 10 mEq tablet extended release 10 meq PO DAILY RF: 0 magnesium oxide 400 mg (241.3 mg magnesium) tablet 400 mg PO DAILY RF: 0 furosemide 20 mg tablet 20 mg PO Q2D RF: 0 ergocalciferol (vitamin D2) 1,250 mcg (50,000 unit) capsule 1,250 mcg PO Q7D RF: 0 ropinirole 4 mg tablet 4 mg PO DAILY RF: 0 rosuvastatin 20 mg tablet 20 mg PO DAILY RF: 0 desvenlafaxine succinate 50 mg tablet extended release 24 hr 50 mg PO DAILY RF: 0 Tresiba FlexTouch U-100 100 unit/mL (3 mL) insulin pen 60 unit SUBCUT BID RF: 0 Discharge Orders: Discharge ED (Routine); Ordered 12/28/20 Ordered By: Oneil Barcenas Referrals: ABELINO Alegria, DRUG ABUSE RESISTANCE EDUCATION OFFICER [Primary Care Provider] - Discharge Diet: Usual diet Discharge Activity: Increase activity as tolerated Patient Instructions: Acute Bronchitis (ED), Opioid Safety Activity Restrictions/Additional Instructions: Take medications as directed. He will use clindamycin 300 mg 3 times a day for the next 7 days for your antibiotic. You will use your routine inhalers as directed. Use the nebulizer solution every 6 hours as needed for cough, wheezing, or congestion. Make sure to drink plenty of water follow-up with primary care in 1 week return to the ER for new concerns. Sign Out Sign Out Data: Patient Sign Out occurred on 12/28/20 at 16:59. Patient's care was discussed, and care was transferred from to Oneil Barcenas. Coding Level of Care Code ED Language Arts Teacher for Nidiag Fwd Exam Detailed
[2020-12-28 17:00] VITALS: BP 140/87; PULSE 79; RESP 15; O2SAT 93
[2020-12-28 17:30] VITALS: BP 143/82; PULSE 77; RESP 18; O2SAT 92
[2020-12-28 17:33] LABS: Basophils # 0.1 10^3/uL (0.0-0.1); Basophils % 0.5 %; Eosinophils # 0.1 10^3/uL (0.0-0.8); Eosinophils % 0.6 %; Hemoglobin 13.1 g/dL (11.5-15.3); Lymphocytes # 1.9 10^3/uL (0.8-4.8); Mean Corpuscular Hemoglobin 30.3 pg (28.0-34.0); Mean Corpuscular Volume 94.9 fL (81-99); Mean Platelet Volume 10.9 fL (7.4-10.4); Monocytes # 0.6 10^3/uL (0.2-0.9); Neutrophils # 8.38 10^3/uL (1.8-7.7); Neutrophils % 76.4 %; Nucleated Red Blood Cells % 0 %; Platelet Count 193 10^3/cmm (130-400); Red Blood Count 4.32 10^6/uL (4.1-5.3); Red Cell Distribution Width 13.1 % (12.1-15.1)
[2020-12-28 17:56] LABS: Alanine Aminotransferase 38 U/L (0-33); Alkaline Phosphatase 80 IU/L (35-105); Anion Gap 16.7 (5-19); Aspartate Amino Transferase 59 U/L (0-32); Blood Urea Nitrogen 14 mg/dL (8-23); Calcium 9.5 mg/dL (8.5-10.5); Carbon Dioxide 25 mmol/L (22-29); Chloride 102 mmol/L (98-107); Glomerular Filtration Rate 85.4 mL/min (90-130); Glucose 173 mg/dL (65-115); Osmolality Calculated 295 mOsm/kg (285-295); Potassium 3.7 mmol/L (3.5-5.1); Sodium 140 mmol/L (136-145); Total Bilirubin 0.3 mg/dL (0.15-1.2)
[2020-12-28 18:00] VITALS: BP 147/72; PULSE 81; RESP 19; O2SAT 96
[2020-12-28 18:29] LABS: SARS Covid-2 Antigen Negative (Negative)
[2020-12-28] MEDS: clindamycin 150 mg Capsule 300 MG PO (19:12)
[2020-12-28] MEDS: dexamethasone 10 mg/mL INJ IVP (19:12)
[2020-12-28 19:35] VITALS: BP 144/78; PULSE 80; RESP 18; O2SAT 96
== END 2020-12-28 19:38 | disposition home or self-care (01) ==
PROVIDERS: Physician Assistant; Emergency Provider Nurse Practitioner Family; PCP Nurse Practitioner Family
DX: J40 Bronchitis, not specified as acute or chronic (principal); Z79.02 Long term (current) use of antithrombotics/antiplatelets; Z79.82 Long term (current) use of aspirin; Z79.4 Long term (current) use of insulin; I25.10 Atherosclerotic heart disease of native coronary artery without angina pectoris; E11.40 Type 2 diabetes mellitus with diabetic neuropathy, unspecified; E78.5 Hyperlipidemia, unspecified; I10 Essential (primary) hypertension; E78.2 Mixed hyperlipidemia; F01.50 Vascular dementia, unspecified severity, without behavioral disturbance, psychotic disturbance, mood disturbance, and anxiety; Z77.22 Contact with and (suspected) exposure to environmental tobacco smoke (acute) (chronic); Z20.822 Contact with and (suspected) exposure to COVID-19
CPT/HCPCS: 71045; 80053; 85025; 87426; 96374; 99284; J1100

== ENCOUNTER → 2021-01-22 09:44 | Outpatient (BNVA) | payer MEDICAID, SELFPAY ==
[2020-10-23 13:54] VITALS: BP 156/86; BMI 54.1
== END ==
PROVIDERS: PCP Nurse Practitioner Family; Visit Provider Specialist
DX: G43.709 Chronic migraine without aura, not intractable, without status migrainosus (principal)
CPT/HCPCS: 64615; J0585

== ENCOUNTER → 2021-02-01 12:07 | Outpatient (BNVA) | payer MEDICAID, SELFPAY ==
[2020-10-23 13:54] VITALS: BP 156/86; BMI 54.1
== END ==
PROVIDERS: PCP Nurse Practitioner Family; Visit Provider Nurse Practitioner Family
DX: E11.65 Type 2 diabetes mellitus with hyperglycemia (principal)
CPT/HCPCS: 83036

== ENCOUNTER 2021-03-10 03:55 | Emergency (ER) | payer MEDICAID, SELFPAY ==
[2020-10-23 13:54] VITALS: BP 156/86; BMI 54.1
[2021-03-10 04:20] VITALS: BP 172/83; PULSE 81; RESP 18; TEMP 36.2; O2SAT 96; BMI 50.8
[2021-03-10 04:37] LABS: Glucose Point of Care 351 mg/dL (70-110)
--- NOTE | 2021-03-10 04:38 | W.ED.FEMALGU ---
Documented by User: Connie Saenz MD 03/10/21 04:42 HPI - Female Genitourinary General: Chief complaint: Urogenital-Female Stated complaint: UTI/ N/V Time Seen by Provider: 03/10/21 04:32 Source: patient Mode of arrival: ambulatory Limitations: no limitations History of Present Illness: HPI Narrative: 60-year-old female states she was seen at [facility] earlier this morning. States she was diagnosed with UTI prescribed Keflex does not fill them and take or taken them. States that her pain with urination is worsened. States she has diffuse abdominal pain she rates it a 2 out of 10. Denies any vomiting or diarrhea. Patient denies any fevers. 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 Chronic back pain Cough Diabetes Diabetic neuropathy Dyslipidemia (high LDL; low HDL) Dysuria Essential hypertension Hematuria Insomnia Knee arthropathy Lower respiratory tract infection 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 Major depression, recurrent, full remission Major depressive disorder, recurrent, in full remission Mixed hyperlipidemia Morbid obesity with BMI of 50.0-59.9, adult Obstructive sleep apnea Restless legs syndrome Syncope Urinary tract infection Vascular dementia without behavioral disturbance Vitamin B12 deficiency anemia Vitamin D deficiency Surgical History History of arthroscopic knee surgery Bilateral History of section, classical History of cholecystectomy History of hysterectomy Hx of cardiac cath April 2016 Family History Mother Cancer Acute leukemia Father CAD (coronary artery disease) Anesthesia complication Family history of premature coronary artery disease Stroke Suicide Hypertension Brother Diabetes Family history of premature coronary artery disease Hypertension Sister Diabetes Family history of premature coronary artery disease Hypertension Denies family history of Clotting disorder Dementia Chronic kidney disease (CKD) Bleeding disorder Lung disease Social History Smoking and tobacco status: former smoker Second hand smoke exposure: Yes Smoking risk assessment/counseling performed?: Yes Alcohol intake: never Desire information about alcohol rehabilitation?: No Counseling given: No Desire information about substance/drug rehabilitation?: No Counseling given: No Adopted: No Caregiver/support person: Yes Lives independently: Yes Household members: none Housing: Apartment Marital status: Number of children: 3 Number of grandchildren: 3 Highest education level completed: 8th Grade Current occupational status: disabled Pets and animals: No History of recent travel: No Leisure activites: other Leisure activities details: puzzles and coloring Sexually active: No Current gender identity: Female Lyn/Mosque: Other Special lyn needs: No Agree to transfusion: Yes Financial difficulty paying for basics: Not Very Hard Female Reproductive History: Para: 3 Spontaneous abortions: No Physical Exam Const: COMMON NORMALS: no acute distress, patient oriented x3 and healthy appearing HENMT: COMMON NORMALS: normocephalic and atraumatic HEAD & SCALP: normocephalic and atraumatic Eye: COMMON NORMALS: Equal, round and reactive pupils present and EOMs intact bilaterally PUPIL: Yes Equal, round and reactive pupils present Neck/C-Spine: COMMON NORMALS: full ROM and supple Chest: COMMONS NORMALS: normal inspection of the chest and normal palpation of entire chest wall Resp: COMMON NORMALS: normal respiratory effort, No retractions, No use of accessory muscles and clear to auscultation bilaterally AUSCULTATION: clear to auscultation bilaterally Cardio: COMMON NORMALS: regular rate, regular rhythm and No murmurs present (Cardio) RATE: regular rate RHYTHM: regular rhythm GI: COMMON NORMALS: Normal to inspection, nondistended, normoactive bowel sounds present, Soft to palpation, non-tender and no masses PALPATION: Yes Soft to palpation Extremity: COMMON NORMALS: normal to inspection and full ROM Neuro: COMMON NORMALS: patient oriented x3, moves all extremities and no focal motor deficits Psych: COMMON NORMALS: mental status grossly normal, Normal thought process present and cooperative THOUGHT PROCESS: Normal thought process present Skin: COMMON NORMALS: no rashes or lesions noted and no wounds GENERAL SKIN EXAM: no rashes or lesions noted Course Vital Signs: Vital signs: Vital Signs Temperature 97.1 F L 03/10/21 04:20 Pulse Rate 88 03/10/21 07:26 Respiratory Rate 18 03/10/21 07:26 Blood Pressure 169/90 03/10/21 07:26 Pulse Oximetry 96 03/10/21 07:26 MDM - Female Lab Data: Labs: Lab Results 03/10/21 03/10/21 03/10/21 Range/Units 04:30 04:33 05:00 WBC 6.9 (4.0-10.0) 10^3/ uL RBC 4.09 L (4.1-5.3) 10^6/u L Hgb 12.6 (11.5-15.3) g/dL Hct 38.5 (37.0-47.0) % MCV 94.1 (81-99) fl MCH 30.8 (28.0-34.0) pg MCHC 32.7 (30.0-36.0) g/dL RDW 13.4 (12.1-15.1) % Plt Count 171 (130-400) 10^3/c mm MPV 11.2 H (7.4-10.4) fL Neut % (Auto) 75.3 % Lymph % (Auto) 16.2 % [place] % (Auto) 6.7 % Eos % (Auto) 0.9 % Baso % (Auto) 0.6 % Neut # (Auto) 5.16 (1.8-7.7) 10^3/u L Lymph # (Auto) 1.1 (0.8-4.8) 10^3/u L [place] # (Auto) 0.5 (0.2-0.9) 10^3/u L Eos # (Auto) 0.1 (0.0-0.8) 10^3/u L Baso # (Auto) 0.0 (0.0-0.1) 10^3/u L Nucleated RBC % (a uto) 0 % Nucleated RBCs # 0.0 /100WBC Sodium (136-145) mmol/L Potassium (3.5-5.1) mmol/L Chloride (98-107) mmol/L Carbon Dioxide (22-29) mmol/L Anion Gap (5-19) BUN (8-23) mg/dL Creatinine (0.5-0.9) mg/dL GFR Calculation (90-130) mL/min Glucose (65-115) mg/dL POC Glucose 351 H (70-110) mg/dL Calculated Osmolal ity (285-295) mOsm/k g Calcium (8.5-10.5) mg/dL Total Bilirubin (0.15-1.2) mg/dL AST (0-32) U/L ALT (0-33) U/L Alkaline Phosphata se (35-105) IU/L Total Protein (6.6-8.7) g/dL Albumin (3.5-5.2) g/dL Globulin (1.3-4.6) g/dL Lipase (13-60) U/L Urine Color Yellow (Yellow) Urine Appearance Clear (CLEAR) Urine pH 5 (5-7) Ur Specific Gravit y 1.015 (1.005-1.030) Urine Protein 2+ H (Negative) Urine Glucose (UA) 4+ H (Normal) Urine Ketones 2+ H (Negative) Urine Blood Trace H (Negative) Urine Nitrate Negative (Negative) Urine Bilirubin Neg (Negative) Urine Urobilinogen Norm (Negative) mg/dL Ur Leukocyte Analy ase Negative (Negative) Urine RBC 5-10 H (0-2) /hpf Urine WBC 0-4 H (0-5) /hpf Ur Squamous Epith Cells 0-4 H (0-5) /hpf Amorphous Sediment Not Reportable Urine Bacteria Trace (NONE) /hpf 03/10/21 Range/Units 05:00 WBC (4.0-10.0) 10^3/ uL RBC (4.1-5.3) 10^6/u L Hgb (11.5-15.3) g/dL Hct (37.0-47.0) % MCV (81-99) fl MCH (28.0-34.0) pg MCHC (30.0-36.0) g/dL RDW (12.1-15.1) % Plt Count (130-400) 10^3/c mm MPV (7.4-10.4) fL Neut % (Auto) % Lymph % (Auto) % [place] % (Auto) % Eos % (Auto) % Baso % (Auto) % Neut # (Auto) (1.8-7.7) 10^3/u L Lymph # (Auto) (0.8-4.8) 10^3/u L [place] # (Auto) (0.2-0.9) 10^3/u L Eos # (Auto) (0.0-0.8) 10^3/u L Baso # (Auto) (0.0-0.1) 10^3/u L Nucleated RBC % (a uto) % Nucleated RBCs # /100WBC Sodium 138 (136-145) mmol/L Potassium 4.1 (3.5-5.1) mmol/L Chloride 99 (98-107) mmol/L Carbon Dioxide 21 L (22-29) mmol/L Anion Gap 22.1 H (5-19) BUN 10 (8-23) mg/dL Creatinine 0.6 (0.5-0.9) mg/dL GFR Calculation 102.0 (90-130) mL/min Glucose 375 H (65-115) mg/dL POC Glucose (70-110) mg/dL Calculated Osmolal ity 300 H (285-295) mOsm/k g Calcium 9.1 (8.5-10.5) mg/dL Total Bilirubin 0.4 (0.15-1.2) mg/dL AST 40 H (0-32) U/L ALT 30 (0-33) U/L Alkaline Phosphata se 81 (35-105) IU/L Total Protein 6.8 (6.6-8.7) g/dL Albumin 4.1 (3.5-5.2) g/dL Globulin 2.7 (1.3-4.6) g/dL Lipase 11 L (13-60) U/L Urine Color (Yellow) Urine Appearance (CLEAR) Urine pH (5-7) Ur Specific Gravit y (1.005-1.030) Urine Protein (Negative) Urine Glucose (UA) (Normal) Urine Ketones (Negative) Urine Blood (Negative) Urine Nitrate (Negative) Urine Bilirubin (Negative) Urine Urobilinogen (Negative) mg/dL Ur Leukocyte Analy ase (Negative) Urine RBC (0-2) /hpf Urine WBC (0-5) /hpf Ur Squamous Epith Cells (0-5) /hpf Amorphous Sediment Urine Bacteria (NONE) /hpf Discharge Plan Discharge Patient Disposition: Home Clinical Impression: Abdominal pain, Acute nausea with nonbilious vomiting Condition: Stable Prescriptions: No Action (DME) blood sugar diagnostic Strip See Rx Instructions .ROUTE .MEDSUPPLY Qty: 100 RF: 5 pantoprazole 40 mg tablet,delayed release (DR/EC) 40 mg PO BID RF: 0 fluticasone propionate [Flonase Allergy Relief] 50 mcg/actuation spray,suspension 1 spray intranasal DAILY RF: 0 diphenhydramine HCl [Benadryl] 25 mg capsule 25 mg PO TID PRN (Reason: allergy/cold symptoms) RF: 0 Combivent Respimat 20-100 mcg/actuation mist 1 puff inhalation BID RF: 0 nitroglycerin 0.4 mg tablet, sublingual 0.4 mg SUBLINGUAL Q5M PRN (Reason: chest pain) Qty: 25 RF: 5 hydralazine 100 mg tablet 100 mg PO TID Qty: 90 RF: 5 cyanocobalamin (vitamin B-12) 1,000 mcg/mL solution See Rx Instructions .ROUTE .COMPLEX RF: 0 insulin aspart U-100 [Novolog Flexpen U-100 Insulin] 100 unit/mL (3 mL) insulin pen See Rx Instructions .ROUTE .COMPLEX Qty: 15 RF: 3 Tresiba FlexTouch U-100 100 unit/mL (3 mL) insulin pen 65 unit SUBCUT BID Qty: 15 RF: 3 Spiriva with HandiHaler 18 mcg capsule, w/inhalation device 1 cap inhalation DAILY Qty: 60 RF: 3 montelukast [Singulair] 10 mg tablet 10 mg PO DAILY Qty: 30 RF: 3 (DME) oxygen-air delivery systems Device See Rx Instructions .Route RF: 0 (DME) blood-glucose meter [OneTouch Verio Flex Start] Kit See Rx Instructions .ROUTE .MEDSUPPLY Qty: 1 RF: 0 aspirin 81 mg tablet,chewable 81 mg PO DAILY RF: 0 pregabalin [Lyrica] 150 mg capsule See Rx Instructions .ROUTE .COMPLEX 30 Days Qty: 120 RF: 2 (DME) Provide B12 injection See Rx Instructions .Route .MEDSUPPLY Qty: 1 RF: 0 fluticasone propion-salmeterol [Advair Diskus] 500-50 mcg/dose blister with device 1 inh INHALATION BID Qty: 60 RF: 5 (DME) lancets [OneTouch Delica Lancets] 30 gauge misc See Rx Instructions .ROUTE .MEDSUPPLY Qty: 100 RF: 5 clopidogrel 75 mg tablet 75 mg PO DAILY Qty: 90 RF: 3 metoprolol tartrate 25 mg tablet 25 mg PO BID 30 Days Qty: 60 RF: 5 trazodone 50 mg tablet See Rx Instructions .ROUTE .COMPLEX Qty: 60 RF: 2 acyclovir 200 mg capsule See Rx Instructions .ROUTE .COMPLEX Qty: 60 RF: 2 (DME) pen needle, diabetic [BD Ultra-Fine Dori Pen Needle] 32 gauge x 5/32 needle See Rx Instructions .ROUTE .MEDSUPPLY Qty: 200 RF: 6 Januvia 100 mg tablet See Rx Instructions .ROUTE .COMPLEX Qty: 90 RF: 1 amlodipine 10 mg tablet See Rx Instructions .ROUTE .COMPLEX Qty: 90 RF: 3 ondansetron HCl [Zofran] 4 mg tablet 4 mg PO Q8H PRN (Reason: nausea and vomiting) Qty: 14 RF: 0 blood sugar diagnostic Strip See Rx Instructions .ROUTE .COMPLEX Qty: 150 RF: 5 potassium chloride 10 mEq tablet extended release 10 meq PO DAILY Qty: 30 RF: 0 albuterol sulfate [ProAir HFA] 90 mcg/actuation HFA aerosol inhaler See Rx Instructions .ROUTE .COMPLEX Qty: 8.5 RF: 5 ropinirole 4 mg tablet See Rx Instructions .ROUTE .COMPLEX Qty: 30 RF: 2 isosorbide mononitrate 120 mg tablet extended release 24 hr 120 mg PO DAILY 90 Days Qty: 90 RF: 3 1 tab PO DAILY RF: 0 cetirizine 10 mg tablet 10 mg PO DAILY RF: 0 aripiprazole 10 mg tablet 10 mg PO DAILY RF: 0 sucralfate 1 gram tablet 1 g PO BID PRN (Reason: GERD) RF: 0 magnesium oxide 400 mg (241.3 mg magnesium) tablet 400 mg PO DAILY RF: 0 furosemide 20 mg tablet 20 mg PO Q2D RF: 0 ergocalciferol (vitamin D2) 1,250 mcg (50,000 unit) capsule 1,250 mcg PO Q7D RF: 0 rosuvastatin 20 mg tablet 20 mg PO DAILY RF: 0 desvenlafaxine succinate 50 mg tablet extended release 24 hr 50 mg PO DAILY RF: 0 ipratropium-albuterol 0.5 mg-3 mg(2.5 mg base)/3 mL solution for nebulization 3 ml inhalation Q6H PRN (Reason: shortness of breath or wheezing) Qty: 180 RF: 0 Discharge Orders: Discharge ED (Routine); Ordered 03/10/21 Ordered By: Scotty Slainas Discharge Diet: Advance as tolerated and Clear Liquid Discharge Activity: Increase activity as tolerated Patient Instructions: Gastritis (ED), Acute Nausea and Vomiting (ED), Abdominal Pain (ED), Opioid Safety Activity Restrictions/Additional Instructions: Thank you for visiting the emergency department. You were seen and evaluated for abdominal pain, nausea, vomiting. The exact cause of your symptoms is not identified on CT scan or laboratory imaging. Often times this is mild irritation which may be present of the stomach or intestines. The treatment is symptomatic in nature. Please ensure that you are staying hydrated. We recommend clear liquid diet for at least 1 day and that advancing as tolerated starting with small amounts of bland food. As an incidental finding you were noted to have slight increase in your known renal cysts. Per radiology recommendations: Further evaluation and confirmation of cystic nature with ultrasound or MRI may be useful, if not already performed. This would be to rule out pathology other than cysts. Based on evaluation this does not require further imaging in the emergency department however you should follow-up with your primary care provider regarding this and the possibility of imaging. Please return to the emergency department for anything that you are concerned about and feel needs emergency department evaluation. Sign Out Sign Out Data: Patient Sign Out occurred on 03/10/21 at 06:00. Patient's care was discussed, and care was transferred from to Scotty Salinas MD. Post-Handoff Eval: Patient care handoff received from Dr. Saenz pending CT imaging and reassessment for symptom control. CT without any acute finding, with exception of possible mild gastritis, to explain patient's abdominal discomfort and nausea/vomiting. Incidental findings of renal cysts noted and discussed with the patient. Upon reassessment patient symptoms improved with additional treatment. The patient has Zofran and takes PPI at home. Results of ED evaluation, symptom treatment, follow-up plan, and return precautions discussed with the patient. All questions answered. Patient discharged in satisfactory condition. 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 pectoris Chronic back pain Cough Diabetes Diabetic neuropathy Dyslipidemia (high LDL; low HDL) Dysuria Essential hypertension Hematuria Insomnia Knee arthropathy Lower respiratory tract infection 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 Major depression, recurrent, full remission Major depressive disorder, recurrent, in full remission Mixed hyperlipidemia Morbid obesity with BMI of 50.0-59.9, adult Obstructive sleep apnea Restless legs syndrome Syncope Urinary tract infection Vascular dementia without behavioral disturbance Vitamin B12 deficiency anemia Vitamin D deficiency Surgical History History of arthroscopic knee surgery Bilateral History of section, classical History of cholecystectomy History of hysterectomy Hx of cardiac cath April 2016 Family History Mother Cancer Acute leukemia Father CAD (coronary artery disease) Anesthesia complication Family history of premature coronary artery disease Stroke Suicide Hypertension Brother Diabetes Family history of premature coronary artery disease Hypertension Sister Diabetes Family history of premature coronary artery disease Hypertension Denies family history of Clotting disorder Dementia Chronic kidney disease (CKD) Bleeding disorder Lung disease Social History Smoking and tobacco status: former smoker Second hand smoke exposure: Yes Smoking risk assessment/counseling performed?: Yes Alcohol intake: never Desire information about alcohol rehabilitation?: No Counseling given: No Desire information about substance/drug rehabilitation?: No Counseling given: No Adopted: No Caregiver/support person: Yes Lives independently: Yes Household members: none Housing: Apartment Marital status: Number of children: 3 Number of grandchildren: 3 Highest education level completed: 8th Grade Current occupational status: disabled Pets and animals: No History of recent travel: No Leisure activites: other Leisure activities details: puzzles and coloring Sexually active: No Current gender identity: Female Lyn/Mosque: Other Special lyn needs: No Agree to transfusion: Yes Financial difficulty paying for basics: Not Very Hard Course Vital Signs: Vital signs: Vital Signs Temperature 97.1 F L 03/10/21 04:20 Pulse Rate 88 03/10/21 07:26 Respiratory Rate 18 03/10/21 07:26 Blood Pressure 169/90 03/10/21 07:26 Pulse Oximetry 96 03/10/21 07:26 MDM - Female Lab Data: Labs: Lab Results 03/10/21 03/10/21 03/10/21 Range/Units 04:30 04:33 05:00 WBC 6.9 (4.0-10.0) 10^3/ uL RBC 4.09 L (4.1-5.3) 10^6/u L Hgb 12.6 (11.5-15.3) g/dL Hct 38.5 (37.0-47.0) % MCV 94.1 (81-99) fl MCH 30.8 (28.0-34.0) pg MCHC 32.7 (30.0-36.0) g/dL RDW 13.4 (12.1-15.1) % Plt Count 171 (130-400) 10^3/c mm MPV 11.2 H (7.4-10.4) fL Neut % (Auto) 75.3 % Lymph % (Auto) 16.2 % [place] % (Auto) 6.7 % Eos % (Auto) 0.9 % Baso % (Auto) 0.6 % Neut # (Auto) 5.16 (1.8-7.7) 10^3/u L Lymph # (Auto) 1.1 (0.8-4.8) 10^3/u L [place] # (Auto) 0.5 (0.2-0.9) 10^3/u L Eos # (Auto) 0.1 (0.0-0.8) 10^3/u L Baso # (Auto) 0.0 (0.0-0.1) 10^3/u L Nucleated RBC % (a uto) 0 % Nucleated RBCs # 0.0 /100WBC Sodium (136-145) mmol/L Potassium (3.5-5.1) mmol/L Chloride (98-107) mmol/L Carbon Dioxide (22-29) mmol/L Anion Gap (5-19) BUN (8-23) mg/dL Creatinine (0.5-0.9) mg/dL GFR Calculation (90-130) mL/min Glucose (65-115) mg/dL POC Glucose 351 H (70-110) mg/dL Calculated Osmolal ity (285-295) mOsm/k g Calcium (8.5-10.5) mg/dL Total Bilirubin (0.15-1.2) mg/dL AST (0-32) U/L ALT (0-33) U/L Alkaline Phosphata se (35-105) IU/L Total Protein (6.6-8.7) g/dL Albumin (3.5-5.2) g/dL Globulin (1.3-4.6) g/dL Lipase (13-60) U/L Urine Color Yellow (Yellow) Urine Appearance Clear (CLEAR) Urine pH 5 (5-7) Ur Specific Gravit y 1.015 (1.005-1.030) Urine Protein 2+ H (Negative) Urine Glucose (UA) 4+ H (Normal) Urine Ketones 2+ H (Negative) Urine Blood Trace H (Negative) Urine Nitrate Negative (Negative) Urine Bilirubin Neg (Negative) Urine Urobilinogen Norm (Negative) mg/dL Ur Leukocyte Analy ase Negative (Negative) Urine RBC 5-10 H (0-2) /hpf Urine WBC 0-4 H (0-5) /hpf Ur Squamous Epith Cells 0-4 H (0-5) /hpf Amorphous Sediment Not Reportable Urine Bacteria Trace (NONE) /hpf 03/10/21 Range/Units 05:00 WBC (4.0-10.0) 10^3/ uL RBC (4.1-5.3) 10^6/u L Hgb (11.5-15.3) g/dL Hct (37.0-47.0) % MCV (81-99) fl MCH (28.0-34.0) pg MCHC (30.0-36.0) g/dL RDW (12.1-15.1) % Plt Count (130-400) 10^3/c mm MPV (7.4-10.4) fL Neut % (Auto) % Lymph % (Auto) % [place] % (Auto) % Eos % (Auto) % Baso % (Auto) % Neut # (Auto) (1.8-7.7) 10^3/u L Lymph # (Auto) (0.8-4.8) 10^3/u L [place] # (Auto) (0.2-0.9) 10^3/u L Eos # (Auto) (0.0-0.8) 10^3/u L Baso # (Auto) (0.0-0.1) 10^3/u L Nucleated RBC % (a uto) % Nucleated RBCs # /100WBC Sodium 138 (136-145) mmol/L Potassium 4.1 (3.5-5.1) mmol/L Chloride 99 (98-107) mmol/L Carbon Dioxide 21 L (22-29) mmol/L Anion Gap 22.1 H (5-19) BUN 10 (8-23) mg/dL Creatinine 0.6 (0.5-0.9) mg/dL GFR Calculation 102.0 (90-130) mL/min Glucose 375 H (65-115) mg/dL POC Glucose (70-110) mg/dL Calculated Osmolal ity 300 H (285-295) mOsm/k g Calcium 9.1 (8.5-10.5) mg/dL Total Bilirubin 0.4 (0.15-1.2) mg/dL AST 40 H (0-32) U/L ALT 30 (0-33) U/L Alkaline Phosphata se 81 (35-105) IU/L Total Protein 6.8 (6.6-8.7) g/dL Albumin 4.1 (3.5-5.2) g/dL Globulin 2.7 (1.3-4.6) g/dL Lipase 11 L (13-60) U/L Urine Color (Yellow) Urine Appearance (CLEAR) Urine pH (5-7) Ur Specific Gravit y (1.005-1.030) Urine Protein (Negative) Urine Glucose (UA) (Normal) Urine Ketones (Negative) Urine Blood (Negative) Urine Nitrate (Negative) Urine Bilirubin (Negative) Urine Urobilinogen (Negative) mg/dL Ur Leukocyte Analy ase (Negative) Urine RBC (0-2) /hpf Urine WBC (0-5) /hpf Ur Squamous Epith Cells (0-5) /hpf Amorphous Sediment Urine Bacteria (NONE) /hpf Discharge Plan Discharge Patient Disposition: Home Clinical Impression: Abdominal pain, Acute nausea with nonbilious vomiting Condition: Stable Prescriptions: No Action (DME) blood sugar diagnostic Strip See Rx Instructions .ROUTE .MEDSUPPLY Qty: 100 RF: 5 pantoprazole 40 mg tablet,delayed release (DR/EC) 40 mg PO BID RF: 0 fluticasone propionate [Flonase Allergy Relief] 50 mcg/actuation spray,suspension 1 spray intranasal DAILY RF: 0 diphenhydramine HCl [Benadryl] 25 mg capsule 25 mg PO TID PRN (Reason: allergy/cold symptoms) RF: 0 Combivent Respimat 20-100 mcg/actuation mist 1 puff inhalation BID RF: 0 nitroglycerin 0.4 mg tablet, sublingual 0.4 mg SUBLINGUAL Q5M PRN (Reason: chest pain) Qty: 25 RF: 5 hydralazine 100 mg tablet 100 mg PO TID Qty: 90 RF: 5 cyanocobalamin (vitamin B-12) 1,000 mcg/mL solution See Rx Instructions .ROUTE .COMPLEX RF: 0 insulin aspart U-100 [Novolog Flexpen U-100 Insulin] 100 unit/mL (3 mL) insulin pen See Rx Instructions .ROUTE .COMPLEX Qty: 15 RF: 3 Tresiba FlexTouch U-100 100 unit/mL (3 mL) insulin pen 65 unit SUBCUT BID Qty: 15 RF: 3 Spiriva with HandiHaler 18 mcg capsule, w/inhalation device 1 cap inhalation DAILY Qty: 60 RF: 3 montelukast [Singulair] 10 mg tablet 10 mg PO DAILY Qty: 30 RF: 3 (DME) oxygen-air delivery systems Device See Rx Instructions .Route RF: 0 (DME) blood-glucose meter [[employer] Verio Flex Start] Kit See Rx Instructions .ROUTE .MEDSUPPLY Qty: 1 RF: 0 aspirin 81 mg tablet,chewable 81 mg PO DAILY RF: 0 pregabalin [Lyrica] 150 mg capsule See Rx Instructions .ROUTE .COMPLEX 30 Days Qty: 120 RF: 2 (DME) Provide B12 injection See Rx Instructions .Route .MEDSUPPLY Qty: 1 RF: 0 fluticasone propion-salmeterol [Advair Diskus] 500-50 mcg/dose blister with device 1 inh INHALATION BID Qty: 60 RF: 5 (DME) lancets [MyFabTouch Delica Lancets] 30 gauge misc See Rx Instructions .ROUTE .MEDSUPPLY Qty: 100 RF: 5 clopidogrel 75 mg tablet 75 mg PO DAILY Qty: 90 RF: 3 metoprolol tartrate 25 mg tablet 25 mg PO BID 30 Days Qty: 60 RF: 5 trazodone 50 mg tablet See Rx Instructions .ROUTE .COMPLEX Qty: 60 RF: 2 acyclovir 200 mg capsule See Rx Instructions .ROUTE .COMPLEX Qty: 60 RF: 2 (DME) pen needle, diabetic [BD Ultra-Fine Dori Pen Needle] 32 gauge x 5/32 needle See Rx Instructions .ROUTE .MEDSUPPLY Qty: 200 RF: 6 Januvia 100 mg tablet See Rx Instructions .ROUTE .COMPLEX Qty: 90 RF: 1 amlodipine 10 mg tablet See Rx Instructions .ROUTE .COMPLEX Qty: 90 RF: 3 ondansetron HCl [Zofran] 4 mg tablet 4 mg PO Q8H PRN (Reason: nausea and vomiting) Qty: 14 RF: 0 blood sugar diagnostic Strip See Rx Instructions .ROUTE .COMPLEX Qty: 150 RF: 5 potassium chloride 10 mEq tablet extended release 10 meq PO DAILY Qty: 30 RF: 0 albuterol sulfate [ProAir HFA] 90 mcg/actuation HFA aerosol inhaler See Rx Instructions .ROUTE .COMPLEX Qty: 8.5 RF: 5 ropinirole 4 mg tablet See Rx Instructions .ROUTE .COMPLEX Qty: 30 RF: 2 isosorbide mononitrate 120 mg tablet extended release 24 hr 120 mg PO DAILY 90 Days Qty: 90 RF: 3 1 tab PO DAILY RF: 0 cetirizine 10 mg tablet 10 mg PO DAILY RF: 0 aripiprazole 10 mg tablet 10 mg PO DAILY RF: 0 sucralfate 1 gram tablet 1 g PO BID PRN (Reason: GERD) RF: 0 magnesium oxide 400 mg (241.3 mg magnesium) tablet 400 mg PO DAILY RF: 0 furosemide 20 mg tablet 20 mg PO Q2D RF: 0 ergocalciferol (vitamin D2) 1,250 mcg (50,000 unit) capsule 1,250 mcg PO Q7D RF: 0 rosuvastatin 20 mg tablet 20 mg PO DAILY RF: 0 desvenlafaxine succinate 50 mg tablet extended release 24 hr 50 mg PO DAILY RF: 0 ipratropium-albuterol 0.5 mg-3 mg(2.5 mg base)/3 mL solution for nebulization 3 ml inhalation Q6H PRN (Reason: shortness of breath or wheezing) Qty: 180 RF: 0 Discharge Orders: Discharge ED (Routine); Ordered 03/10/21 Ordered By: Scotty Salinas Discharge Diet: Advance as tolerated and Clear Liquid Discharge Activity: Increase activity as tolerated Patient Instructions: Gastritis (ED), Acute Nausea and Vomiting (ED), Abdominal Pain (ED), Opioid Safety Activity Restrictions/Additional Instructions: Thank you for visiting the emergency department. You were seen and evaluated for abdominal pain, nausea, vomiting. The exact cause of your symptoms is not identified on CT scan or laboratory imaging. Often times this is mild irritation which may be present of the stomach or intestines. The treatment is symptomatic in nature. Please ensure that you are staying hydrated. We recommend clear liquid diet for at least 1 day and that advancing as tolerated starting with small amounts of bland food. As an incidental finding you were noted to have slight increase in your known renal cysts. Per radiology recommendations: Further evaluation and confirmation of cystic nature with ultrasound or MRI may be useful, if not already performed. This would be to rule out pathology other than cysts. Based on evaluation this does not require further imaging in the emergency department however you should follow-up with your primary care provider regarding this and the possibility of imaging. Please return to the emergency department for anything that you are concerned about and feel needs emergency department evaluation. Sign Out Sign Out Data: Patient Sign Out occurred on 03/10/21 at 06:00. Patient's care was discussed, and care was transferred from to Scotty Salinas MD. Post-Handoff Eval: Patient care handoff received from Dr. Saenz pending CT imaging and reassessment for symptom control. CT without any acute finding, with exception of possible mild gastritis, to explain patient's abdominal discomfort and nausea/vomiting. Incidental findings of renal cysts noted and discussed with the patient. Upon reassessment patient symptoms improved with additional treatment. The patient has Zofran and takes PPI at home. Results of ED evaluation, symptom treatment, follow-up plan, and return precautions discussed with the patient. All questions answered. Patient discharged in satisfactory condition. Scotty Salinas MD Emergency Medicine Coding Level of Care Code ED Program Planner for Chg Fwd Exam Comprehensive
[2021-03-10] MEDS: sodium chloride 0.9% 1,000 ML 999 ML IV (04:39)
[2021-03-10] MEDS: ondansetron 2 mg/ML SDV 2 mL 4 MG IVP ×2 (04:39→05:35)
[2021-03-10] MEDS: morphine 4 mg/mL SDV 1 mL IVP ×2 (04:55→05:35)
[2021-03-10 05:06] LABS: Red Blood Count 4.09 10^6/uL (4.1-5.3); White Blood Count 6.9 10^3/uL (4.0-10.0)
[2021-03-10 05:07] LABS: Basophils % 0.6 %; Eosinophils # 0.1 10^3/uL (0.0-0.8); Eosinophils % 0.9 %; Hematocrit 38.5 % (37.0-47.0); Hemoglobin 12.6 g/dL (11.5-15.3); Lymphocytes # 1.1 10^3/uL (0.8-4.8); Lymphocytes % 16.2 %; Mean Corpuscular HGB Conc 32.7 g/dL (30.0-36.0); Mean Corpuscular Hemoglobin 30.8 pg (28.0-34.0); Mean Corpuscular Volume 94.1 fl (81-99); Mean Platelet Volume 11.2 fL (7.4-10.4); Monocytes # 0.5 10^3/uL (0.2-0.9); Monocytes % 6.7 %; Neutrophils # 5.16 10^3/uL (1.8-7.7); Neutrophils % 75.3 %; Nucleated Red Blood Cells % 0 %; Platelet Count 171 10^3/cmm (130-400); Red Cell Distribution Width 13.4 % (12.1-15.1)
[2021-03-10 05:24] LABS: Alanine Aminotransferase 30 U/L (0-33); Albumin Level 4.1 g/dL (3.5-5.2); Alkaline Phosphatase 81 IU/L (35-105); Anion Gap 22.1 (5-19); Aspartate Amino Transferase 40 U/L (0-32); Blood Urea Nitrogen 10 mg/dL (8-23); Calcium 9.1 mg/dL (8.5-10.5); Carbon Dioxide 21 mmol/L (22-29); Chloride 99 mmol/L (98-107); Globulin 2.7 g/dL (1.3-4.6); Glucose 375 mg/dL (65-115); Lipase 11 U/L (13-60); Osmolality Calculated 300 mOsm/kg (285-295); Potassium 4.1 mmol/L (3.5-5.1); Sodium 138 mmol/L (136-145); Total Bilirubin 0.4 mg/dL (0.15-1.2); Total Protein 6.8 g/dL (6.6-8.7)
[2021-03-10 05:26] LABS: Urine Appearance Clear (CLEAR); Urine Color Yellow (Yellow)
[2021-03-10 05:27] LABS: Add Urine Microscopic? YES; Bilirubin Urine Neg (Negative); Blood Urine Trace (Negative); Glucose Urine UA 4+ (Normal); Ketones Urine 2+ (Negative); Leukocyte Esterase Urine Negative (Negative); Nitrate Urine Negative (Negative); Protein Urine 2+ (Negative); Specific Gravity, Urine 1.015 (1.005-1.030); Urobilinogen Urine Norm (Negative); pH Urine 5 (5-7)
--- NOTE | 2021-03-10 05:29 | CTR_ITS ---
PROCEDURE INFORMATION: Exam: CT Abdomen And Pelvis With Contrast Exam date and time: 03/10/2021 5:29 AM Age: 60 years old Clinical indication: Abdominal tenderness and nausea; Prior surgery; Surgery date: 6+ months; Surgery type: Gb, ; Patient HX: Uti's x 1 wk with RT side abdominal pain and nausea; Additional info: Abd pain TECHNIQUE: Imaging protocol: Computed tomography of the abdomen and pelvis with contrast. Radiation optimization: All CT scans at this facility use at least one of these dose optimization techniques: automated exposure control; mA and/or kV adjustment per patient size (includes targeted exams where dose is matched to clinical indication); or iterative reconstruction. Contrast material: OMNIPAQUE 300; Contrast volume: 95 ml; Contrast route: INTRAVENOUS (IV); COMPARISON: CT abdomen pelvis w con* [id number] 02/07/2019 10:32 AM RADIATION DOSE METRICS: Total DLP (mGy-cm): 1081.91 FINDINGS: Lungs: The lung bases are clear. Liver: Unremarkable. Gallbladder and bile ducts: Prior cholecystectomy, no significant biliary tree dilation. Pancreas: Partial fatty replacement of the pancreas, this appearance has progressed in the interval. No current findings to suggest acute pancreatitis. Spleen: Unremarkable. Adrenal glands: Unremarkable. Kidneys and ureters: Several possible cysts in the left kidney, similar to the prior exam. The largest in the left lower pole measures about 2 cm and measures slightly greater than water attenuation. It has increased slightly in size in the interval. This is still likely a complex cyst, however other mass or neoplasm is not excluded. Further evaluation and confirmation of cystic nature with ultrasound or MRI may be useful, if not already performed. Suspect a few very small subcentimeter cysts in the right kidney, too small to accurately characterize by CT. The kidneys otherwise enhance homogeneously. No hydronephrosis of either kidney. No visible ureteral calculus. No perinephric fluid. Normal appearance of the kidneys on CT does not entirely exclude the diagnosis of acute pyelonephritis. Please correlate with clinical and laboratory evaluation. Stomach and bowel: Possibility of slightly thickened mucosa/wall in the distal antrum of the stomach. This is a nonspecific appearance, and may well be transient on CT, but could also represent evidence for gastritis or peptic ulcer disease. Please correlate clinically. There is mild diverticulosis involving the colon, without CT evidence of diverticulitis. Appendix: The appendix is not identified with certainty, however no pericecal inflammatory changes are seen. Intraperitoneal space: No free air, ascites, or bowel distention. Vasculature: No evidence for abdominal aortic aneurysm. Lymph nodes: No retroperitoneal adenopathy. Urinary bladder: The urinary bladder appears essentially unremarkable by CT. No visible calculus in the urinary bladder. Reproductive: Apparent prior hysterectomy. No definite ovarian/adnexal cyst or mass by CT. Bones/joints: There is unilateral right L5 spondylolysis, no significant/obvious spondylolisthesis. Soft tissues: No significant acute finding. CT/CT abdomen pelvis w con* [id number] IMPRESSION: 1. No hydronephrosis of either kidney. No visible ureteral calculus. No perinephric fluid, see above discussion. 2. Possible renal cysts, with slightly atypical lesion in the left lower pole. See above discussion/recommendation. 3. No CT evidence to suggest appendicitis, however a normal appendix is not definitely visible. 4. Possible thickened mucosa/wall in the distal stomach, see above discussion. 5. No free air or bowel distention. No evidence for bowel obstruction. 6. Other findings discussed above. COMMENTS: Consistent with the [place] [employer]'s Incidental Findings Committee white paper (J Am Mayur Radiol 2018): Any incidental renal lesion less than 1 cm or classified as too small to characterize, or any incidental cystic renal lesion characterized as simple-appearing, is likely benign. No follow-up imaging is recommended for these lesions per consensus recommendations based on imaging criteria. Radiation Dose CTDIVOL = (mGy): DLP = 1081.91 (mGy-cm)
[2021-03-10 05:52] LABS: Add Urine Culture? No; Bacteria Urine TRACE /hpf; Squamous Epithelial Cell Urine 0-4 /hpf (0-5); WBC Urine 0-4 /hpf (0-5)
[2021-03-10 05:57] VITALS: RESP 18; O2SAT 97
[2021-03-10] MEDS: iohexol 300 mg/mL 100 mL Btl IV (06:03)
[2021-03-10] MEDS: metoclopramide 5 mg/mL SDV 2 mL 10 MG IVP (06:21)
[2021-03-10] MEDS: fentaNYL 50 mcg/mL INJ 2mL 75 MCG IVP (06:21)
[2021-03-10 07:26] VITALS: BP 169/90; PULSE 88; RESP 18; O2SAT 96
[2021-03-10] MEDS: lidocaine 2% viscous 15 ML, aluminum-mag hydrox-simethicon 30 ML, sucralfate oral liq 1 GM PO (08:01)
[2021-03-10 08:35] LABS: Glucose Point of Care 333 mg/dL (70-110)
[2021-03-10 08:37] VITALS: BP 161/94; PULSE 93; RESP 18; O2SAT 94
== END 2021-03-10 08:35 | disposition home or self-care (01) ==
PROVIDERS: Emergency Medicine; Emergency Provider Emergency Medicine
DX: R10.9 Unspecified abdominal pain (principal); R11.2 Nausea with vomiting, unspecified; Z79.02 Long term (current) use of antithrombotics/antiplatelets; Z79.82 Long term (current) use of aspirin; Z79.4 Long term (current) use of insulin; I25.10 Atherosclerotic heart disease of native coronary artery without angina pectoris; E11.40 Type 2 diabetes mellitus with diabetic neuropathy, unspecified; I10 Essential (primary) hypertension; E78.2 Mixed hyperlipidemia; Z87.440 Personal history of urinary (tract) infections; F01.50 Vascular dementia, unspecified severity, without behavioral disturbance, psychotic disturbance, mood disturbance, and anxiety; Z87.891 Personal history of nicotine dependence
CPT/HCPCS: 36416; 74177; 80053; 81001; 82962; 83690; 85025; 96361; 96374; 96375; 96376; 99284; J2270; J2405; J2765; J3010; J7030; Q9967

== ENCOUNTER → 2021-03-26 09:45 | Outpatient (BNVA) | payer MEDICAID, SELFPAY ==
[2020-10-23 13:54] VITALS: BP 156/86; BMI 54.1
== END ==
PROVIDERS: Visit Provider Nurse Practitioner Family
DX: R53.1 Weakness (principal); D64.9 Anemia, unspecified; E55.9 Vitamin D deficiency, unspecified; E11.42 Type 2 diabetes mellitus with diabetic polyneuropathy; Z79.4 Long term (current) use of insulin; Z09 Encounter for follow-up examination after completed treatment for conditions other than malignant neoplasm; E11.65 Type 2 diabetes mellitus with hyperglycemia
CPT/HCPCS: 82306; 82607; 82746; 84425

== ENCOUNTER → 2021-04-18 11:12 | Outpatient (BNVA) | payer MEDICAID, SELFPAY ==
[2020-10-23 13:54] VITALS: BP 156/86; BMI 54.1
== END ==
PROVIDERS: PCP Nurse Practitioner Family; Visit Provider Specialist
DX: G43.709 Chronic migraine without aura, not intractable, without status migrainosus (principal); E11.9 Type 2 diabetes mellitus without complications; Z79.4 Long term (current) use of insulin; E66.8 Other obesity; Z68.43 Body mass index [BMI] 50.0-59.9, adult
CPT/HCPCS: 64615; 99213; J0585

== ENCOUNTER → 2021-04-30 08:22 | Outpatient (BNVA) | payer MEDICAID, SELFPAY ==
[2020-10-23 13:54] VITALS: BP 156/86; BMI 54.1
== END ==
PROVIDERS: Visit Provider Psychiatry & Neurology Psychiatry
DX: F25.1 Schizoaffective disorder, depressive type (principal); G47.33 Obstructive sleep apnea (adult) (pediatric); G47.00 Insomnia, unspecified
CPT/HCPCS: 99213

== ENCOUNTER → 2021-05-03 09:38 | Outpatient (BNVA) | payer MEDICAID, SELFPAY ==
[2020-10-23 13:54] VITALS: BP 156/86; BMI 54.1
== END ==
PROVIDERS: PCP Nurse Practitioner Family; Visit Provider Internal Medicine
DX: E11.65 Type 2 diabetes mellitus with hyperglycemia (principal); E11.59 Type 2 diabetes mellitus with other circulatory complications; E11.42 Type 2 diabetes mellitus with diabetic polyneuropathy; I25.10 Atherosclerotic heart disease of native coronary artery without angina pectoris; I10 Essential (primary) hypertension; N39.0 Urinary tract infection, site not specified; E16.0 Drug-induced hypoglycemia without coma; T38.3X5A Adverse effect of insulin and oral hypoglycemic [antidiabetic] drugs, initial encounter; Z79.4 Long term (current) use of insulin
CPT/HCPCS: 99214

== ENCOUNTER → 2021-08-21 08:40 | Outpatient (BNVA) | payer MEDICAID, SELFPAY ==
[2020-10-23 13:54] VITALS: BP 156/86; BMI 54.1
== END ==
PROVIDERS: PCP Nurse Practitioner Family; Visit Provider Internal Medicine
DX: E11.42 Type 2 diabetes mellitus with diabetic polyneuropathy (principal); E11.65 Type 2 diabetes mellitus with hyperglycemia; E11.59 Type 2 diabetes mellitus with other circulatory complications; E16.0 Drug-induced hypoglycemia without coma; T38.3X5A Adverse effect of insulin and oral hypoglycemic [antidiabetic] drugs, initial encounter; E78.2 Mixed hyperlipidemia; D51.9 Vitamin B12 deficiency anemia, unspecified; I25.10 Atherosclerotic heart disease of native coronary artery without angina pectoris; N39.0 Urinary tract infection, site not specified; Z79.4 Long term (current) use of insulin
CPT/HCPCS: 99214

== ENCOUNTER → 2021-09-04 09:27 | Outpatient (BNVA) | payer MEDICAID, SELFPAY ==
[2020-10-23 13:54] VITALS: BP 156/86; BMI 54.1
== END ==
PROVIDERS: PCP Nurse Practitioner Family; Visit Provider Internal Medicine
DX: E16.0 Drug-induced hypoglycemia without coma (principal); E11.65 Type 2 diabetes mellitus with hyperglycemia; E78.2 Mixed hyperlipidemia; T38.3X5A Adverse effect of insulin and oral hypoglycemic [antidiabetic] drugs, initial encounter; Z79.4 Long term (current) use of insulin; D51.9 Vitamin B12 deficiency anemia, unspecified
CPT/HCPCS: 80053; 80061; 82043; 83036

== ENCOUNTER → 2021-12-11 10:30 | Outpatient (BNVA) | payer MEDICAID, SELFPAY ==
[2020-10-23 13:54] VITALS: BP 156/86; BMI 54.1
== END ==
PROVIDERS: PCP Family Medicine; Visit Provider Internal Medicine
DX: E11.649 Type 2 diabetes mellitus with hypoglycemia without coma (principal); E11.42 Type 2 diabetes mellitus with diabetic polyneuropathy; E11.65 Type 2 diabetes mellitus with hyperglycemia; E11.59 Type 2 diabetes mellitus with other circulatory complications; E78.2 Mixed hyperlipidemia; I25.10 Atherosclerotic heart disease of native coronary artery without angina pectoris; E16.0 Drug-induced hypoglycemia without coma; Z87.440 Personal history of urinary (tract) infections; T38.3X5A Adverse effect of insulin and oral hypoglycemic [antidiabetic] drugs, initial encounter; Z79.4 Long term (current) use of insulin; Z79.84 Long term (current) use of oral hypoglycemic drugs
CPT/HCPCS: 99214

== ENCOUNTER → 2022-01-21 12:36 | Outpatient (BNVA) | payer MEDICAID, SELFPAY ==
[2020-10-23 13:54] VITALS: BP 156/86; BMI 54.1
== END ==
PROVIDERS: PCP Family Medicine; Visit Provider Podiatrist Foot & Ankle Surgery
DX: L60.8 Other nail disorders (principal); E11.21 Type 2 diabetes mellitus with diabetic nephropathy; M20.10 Hallux valgus (acquired), unspecified foot; M21.40 Flat foot [pes planus] (acquired), unspecified foot; L60.3 Nail dystrophy; Z79.4 Long term (current) use of insulin; Z79.84 Long term (current) use of oral hypoglycemic drugs
CPT/HCPCS: 11721; 99204

== ENCOUNTER → 2022-01-27 15:26 | Outpatient (BNVA) | payer MEDICAID, SELFPAY ==
[2020-10-23 13:54] VITALS: BP 156/86; BMI 54.1
== END ==
PROVIDERS: Visit Provider Internal Medicine Cardiovascular Disease
DX: R07.89 Other chest pain (principal); I25.118 Atherosclerotic heart disease of native coronary artery with other forms of angina pectoris; I10 Essential (primary) hypertension; E11.65 Type 2 diabetes mellitus with hyperglycemia; E78.2 Mixed hyperlipidemia; G47.33 Obstructive sleep apnea (adult) (pediatric); R06.02 Shortness of breath
CPT/HCPCS: 36415; 80048; 83880; 93005; 99214

== ENCOUNTER 2022-07-03 06:58 | Outpatient (CLI) | payer MEDICAID, SELFPAY ==
[2020-10-23 13:54] VITALS: BP 156/86; BMI 54.1
[2022-07-03 07:27] VITALS: BMI 48.4
--- NOTE | 2022-07-03 07:29 | NMCV_ITS ---
NM luis miguel perf SPECT r/s* [id number] Shweta Morgan Age: 62 Gender: F : 1960 Exam Date: 07/03/2022 08:07 Ordering Phys: Elizabeth Winters MD ([email or web address]) Technologist: GARETH Gonzalez Exam Location: [facility] Indications: CORONARY ANGIOPLASTY STATUS STRESS TEST Please see separate stress test report in [facility] for full findings IMAGE PROTOCOL Rest/Stress 1 Lexiscan Day Radiopharmaceutical Dose (mCi) Administration Site Administered by Rest: Tc-99m 10.8 IV GARETH Pedraza Sestamibi Stress:Tc-99m 33.0 IV GARETH Pedraza Sestamibi Rest: 03-Jul-2022 60 Discovery 630 Stress: 03-Jul-2022 30 Discovery 630 0.4mg Lexiscan. Images obtained in supine and prone position. SPECT RESULTS Technical Quality: Excellent Raw Data Analysis: Normal Image Corrections: No attenuation or motion correction applied Summed Stress Score: 5 Summed Rest Score: 0 Summed Difference Score: 5 PERFUSION FINDINGS Small to moderate area of minimal to moderately decreased tracer uptake in the mid anterolateral, apical lateral, apical inferior and LV apex. Significant reversibility was noted in these regions at rest. FUNCTIONAL RESULTS (calculated via Gated SPECT) Stress Image LV EF (%): 67 Stress EDV (mL):100 TID: 1.06 Stress ESV (mL):33 FUNCTIONAL FINDINGS: Segmental wall motion analysis revealed mild hypokinesia of the LV apex. IMPRESSIONS 1. Myocardial perfusion imaging revealing small to moderate area of reversible defect in the anterolateral and apical regions suggesting ischemia in the distribution of the left circumflex artery. 2. Normal LV ejection fraction of 67%. 3. LV wall motion analysis revealed mild hypokinesia of the LV apex 4. Normal LV volume Compared to the study from 04/13/2020, the ischemic burden appears to be less Dr Elizabeth Winters MD FACC (Electronically Signed) Final Date: 03 July 2022 19:52 S
--- NOTE | 2022-07-03 07:29 | ECG_ITS ---
[facility] Test Date: 2022-07-03 Pat Name: Shweta Morgan Department: Room: Gender: Female Proposal Writer: Leda Black : 1960 Requested By: Elizabeth Winters Order Number: [id number] Tez MD: Elizabeth Winters M.D. Interpretive Statements NAME OF STUDY: LEXISCAN SESTAMIBI STRESS TEST INDICATION: Chest Pain, PROCEDURE: At the baseline, the EKG revealed sinus rhythm with nonspecific T wave changes. The baseline heart was 78 bpm with a blood pressue of 28/75 mm of Hg Lexiscan was infused over a period of 20 seconds. A total of 0.4 milligrams of Lexiscan was infused. The stress phase was continued for a total of 5 minutes. Heart rate at the end of the stress phase was 80 bpm with a blood pressure 61/82 mm of Hg. The EKG at the peak infusion revealed the . Sestamibi was injected 20 seconds after the Lexiscan infusion. Heart rate at the end of the recovery phase was 78 bpm with a blood pressure of 143/77 mm of Hg. CONCLUSION: 1. No significant EKG changes with the LexiScan infusion 2. No LexiScan induced chest pain or cardiac arrhythmia 3. Normal blood pressure and heart rate response 4. Sestamibi/sestamibi perfusion scan pending; see separate report. Electronically Signed On 07-04-2022 11:56:26 STEEL SHOT HEADER OPERATOR by Elizabeth Winters M.D. [email or web address]
[2022-07-03] MEDS: regadenoson 0.4 Mg/5 ml Syringe IVP (08:45)
[2022-07-03 08:59] VITALS: BP 143/77; PULSE 79
== END 2022-07-03 06:59 | disposition home or self-care (01) ==
LOC: CDL 07:00
PROVIDERS: PCP Nurse Practitioner Family; Visit Provider Internal Medicine Cardiovascular Disease
DX: Z98.61 Coronary angioplasty status (principal)
CPT/HCPCS: 36415; 78452; 93017; 96374; A9500; J2785

== ENCOUNTER → 2022-07-30 14:42 | Outpatient (BNVA) | payer MEDICAID, SELFPAY ==
[2020-10-23 13:54] VITALS: BP 156/86; BMI 54.1
== END ==
PROVIDERS: PCP Family Medicine; Visit Provider Internal Medicine Cardiovascular Disease
DX: I25.118 Atherosclerotic heart disease of native coronary artery with other forms of angina pectoris (principal); R06.02 Shortness of breath; R94.39 Abnormal result of other cardiovascular function study; E78.5 Hyperlipidemia, unspecified; I10 Essential (primary) hypertension; G47.33 Obstructive sleep apnea (adult) (pediatric)
CPT/HCPCS: 99215

== ENCOUNTER 2022-08-14 05:42 | Outpatient (CLI) | payer MEDICAID, SELFPAY ==
[2020-10-23 13:54] VITALS: BP 156/86; BMI 54.1
[2022-08-13 13:16] VITALS: BMI 50.7
[2022-08-14] VITALS (31 sets, daily range): BP systolic 103–155; BP diastolic 57–87; PULSE 62–78; RESP 12–70; TEMP 36.6–37; O2SAT 92–99; BMI 50.7
[2022-08-14 06:23] LABS: Glucose Point of Care 318 mg/dL (70-110)
[2022-08-14 06:27] LABS: Basophils # 0.1 10^3/uL (0.0-0.1); Basophils % 0.6 %; Eosinophils # 0.2 10^3/uL (0.0-0.8); Eosinophils % 1.6 %; Hemoglobin 12.5 g/dL (11.5-15.3); Lymphocytes # 2.1 10^3/uL (0.8-4.8); Lymphocytes % 21.8 %; Mean Corpuscular HGB Conc 32.1 g/dL (30.0-36.0); Mean Corpuscular Hemoglobin 27.9 pg (28.0-34.0); Mean Corpuscular Volume 87.1 fl (81-99); Mean Platelet Volume 10.4 fL (7.4-10.4); Monocytes # 0.6 10^3/uL (0.2-0.9); Monocytes % 6.2 %; Neutrophils # 6.62 10^3/uL (1.8-7.7); Neutrophils % 69.6 %; Nucleated Red Blood Cells % 0 %; Platelet Count 238 10^3/cmm (130-400); Red Blood Count 4.48 10^6/uL (4.1-5.3); Red Cell Distribution Width 13.4 % (12.1-15.1); White Blood Count 9.5 10^3/uL (4.0-10.0)
[2022-08-14] MEDS: diphenhydrAMINE 50 mg Capsule PO (06:30)
[2022-08-14 06:51] LABS: Anion Gap 21.6 (5-19); Blood Urea Nitrogen 29 mg/dL (8-23); Calcium 9.4 mg/dL (8.5-10.5); Carbon Dioxide 21 mmol/L (22-29); Chloride 100 mmol/L (98-107); Glomerular Filtration Rate 45.5 mL/min (90-130); Glucose 325 mg/dL (65-115); INR 1.03 (0.8-1.2); Osmolality Calculated 306 mOsm/kg (285-295); Potassium 3.6 mmol/L (3.5-5.1); Sodium 139 mmol/L (136-145)
--- NOTE | 2022-08-14 07:00 | XACV_ITS ---
Exam Room: 2 Ht: 150 cm Wt: 114 kg BSA: 2.26 m2 Gender: Female : 1960 Any Known Allergies: Other Exam Priority: Routine Procedure(s): Procedure Description: Diagnostic procedure Procedure Description: PCI procedure Procedure Description: Left Heart Catheterization Procedure Description: PTCA Procedure Description: Miscellaneous Procedure Description: ACT Procedure Description: Coronary Angiography Singh GRNADE; Diagnostic Cath Status: Elective Diagnostic Findings * There is no left main. The left relative sending artery and the circumflex artery have separate ostia. 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 * The left anterior descending artery is a medium caliber vessel which appears to taper off to his the LV apex. The proximal and mid segment were found to be extensively stented and widely open. The first and second diagonal branches were found to have ostial narrowing, possibly jailed by the stent. The first diagonal artery was found to have around 50% narrowing. The second diagonal branch appears to have around 70% ostial narrowing. Distal to the distal stent, there was a segmental narrowing of around 50% in the LAD. The diagonal artery coming off the distal stented segment also was found around 50% narrowing. The septal perforators coming off the stented region also were found to have ostial narrowing. 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 The artery was found to have minimal intimal regularities. No significant stenotic lesions were noted. * Right coronary artery is a large-caliber dominant vessel which was found to have mild diffuse intimal irregularities with no significant stenotic lesions. PCI Status: Elective PCI Indication: Other Interventional Findings * PROCEDURE DETAIL: We engaged left main artery with XB 3.5 guide catheter. IV heparin was administered to maintain ACT above 250 S. We used 0.014 run-through guidewire to cross the second diagonal artery stenosis and was put in distal vessel. We initially attempted to cross the stenosis with 2.5 mm balloon however it could not cross the stent struts. We used a 2.0 x 15 mm semicompliant balloon and was inflated. This was followed by balloon angioplasty with 2.5 x 12 mm semicompliant balloon. At this time final angiogram was performed that showed excellent vessel expansion and ASA-3 flow. Guidewire and guide catheter were removed. Patient left the Casino Floorperson in a stable condition.. * 2nd Diagonal: 70% stenosis treated with a AB MINI TREK 2.00X15 RX BALLOON, and AB TREK 2.50X12 RX BALLOON. 0% residual stenosis, ASA: 3 flow. Conclusions 1. 62-year-old white female with history of coronary artery disease, status post multiple PCI's, multiple risk factors for CAD, is presenting with increasing episodes of chest pain. Abnormal Myocardial perfusion imaging revealing moderate area of reversible defect in the lateral wall. The cardiac colorization revealed the following. 2. Patent stented segments of the left anterior descending artery. High-grade lesion in the ostium of the second diagonal branch of the left anterior descending artery, appears to be a jailed lesion. Moderate ostial narrowing in the diagonal branches and septal perforators coming off the left anterior descending artery in the stented areas. 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 Large dominant right coronary artery with a mild diffuse disease. LVEDP of 18 mmHg. 3. Reviewed and discussed the cardiac catheterization data with Dr. Chavez. It was thought to be appropriate to consider angioplasty of the ostial lesion in the second diagonal artery. At this point Dr. Chavez took over further management of this patient. 4. S/p successful revascularization of second diagonal artery with balloon angioplasty. 5. 2nd Diagonal was treated with a Balloon, and Balloon. Recommendations * Dual antiplatelet therapy for 1 year. * High intensity statin therapy. * Outpatient cardiology follow up in 4 weeks. Interventional RX Recommendation: PCI w/o planned CABG Diagnostic RX Recommendation: PCI w/o planned CABG Anticoagulation: Heparin LV EDP: 18 mmHg Left Ventriculography Findings: * LV gram was not performed because of the concern of dye overload. Pressures Phase:Rest AO : 124 / 77 ( 98 ) @ 7:39:00 AM 156 / 62 ( 93 ) @ 7:48:00 AM 142 / 61 ( 92 ) @ 7:48:00 AM 139 / 67 ( 95 ) @ 8:05:00 AM LV : 139 / -11 / 18 @ 7:48:00 AM 142 / -7 / 23 @ 7:48:00 AM Valves Phase:DefaultPhase AV : 0.0 @ 8:39:38 AM 0.0 @ 8:39:38 AM AV Mean Gradient: 0.0 @ 8:39:38 AM 0.0 @ 8:39:38 AM Clinical Evaluation EBL: 5mL-10mL Procedural Details Pre-Procedure Time Out. Identified patient by full name and date of as verbalized by the patient/guarantor. Does the consent match the physician's order: Yes. Accurate & Complete Informed Consent: Yes. Inpatient/Outpatient History & Physical on Chart: Yes. If H&P is completed, is and addenduem needed: No. Visualize and Verify Site with Patient/Guarantor: N/A. Relevant Radiology Images available: Yes. Pre-op teaching completed and patient verbalized understanding. The risks, benefits, and alternatives of sedation and/or procedure were discussed by physician. The patient agrees to continue. Procedure started. [facility] Clinical Fraility Score: 4: Vulnerable. Casino Floorperson Indications: Worsening Angina/SOB/Abnormal stress test. Chest Pain Symptom Assessment: Typical Angina Symptoms. Cardiovascular Instability: No. Correct patient, site and procedure confirmed by cath team. PERRLA. Strong, equal hand leaf fat scraper bilaterally. Lungs clear x 5 lobes. IV Site on Arrival: 20 gauge in the right anticubital. IV Fluids: 0.9% NaCl at KVO. 250 mL infused prior to clinical laboratory manager. Pre Procedural Pulses: bilateral dorsalis pedis was 3+. Pre Procedural Pulses: bilateral posterior tibial was 1+. Pre Procedural Pulses: bilateral radial was 3+. Oxygen started at 2liters/min via nasal canula. bilateral groins was prepped with chloroprep then draped in the usual sterile fashion. Physician notified. Baseline sample Acquired. HR: 69 BPM. Patient's family in CPRU room #3. Dr. Winters will update at the completion of the procedure. Equipment: 6F - Femoral. Cardiac Cath Pack. ACIST Manifold Kit Model BT 2000. Heparinized Saline (2 units/mL), 1000 mL bag. Kit, Micropuncture. Physician arrived. Physician scrubbed in. Immediate Pre-Procedure Time Out. Correct Patient: Yes; Correct Procedure: Yes; Correct Site: Yes; Correct Patient Position: Yes; Correct Supplies: Yes; Dried Flammable Prep: Yes; Blood Products Available: N/A;. Lidocaine 1% infiltrated to the right groin. Arterial access obtained with micropuncture set. A 5 czech JL4 catheter in over the standard J wire. Multiple views taken of left coronary artery. Catheter removed over the standard J wire. A 5 czech JR4 catheter in over the standard J wire. Multiple views taken of right coronary artery. Catheter removed over the standard J wire. A 5 czech Angled Pig catheter in over the standard J wire. EDP Sample taken: LV 139/-12,18; HR: 68 BPM; SpO2: 98%. Pullback taken: LV 142/-8,23; AO 156/62(93); Mean: 0mmHg, Peak to Peak: 0mmHg, SEP: 23sec/min; HR: 68 BPM; SpO2: 98%. Catheter removed over the standard J wire. Dr. Winters scrubbed out and will update family. Dr. Chavez notified to view cine. Dr. Chavez scrubbed in. Sheath upsized to a 6 Fr. 6 czech XB 3.5 guide catheter was inserted over the wire. Runthrough guidewire was advanced through the guide catheter to lesion in the 2nd diaganol. Balloon inserted to lesion in the diaganol. Intact 2.5mm X 12mm Balloon out over wire. Balloon inserted to lesion in the 2nd diaganol. Intact 2.25mm X 8 mm balloon out over wire. Balloon inserted to lesion in the 2nd diaganol. Inflation number : 1 A AB MINI TREK 2.00X15 RX BALLOON was prepped and advanced across the 2nd Diag , then inflated to 12 JENIFER for 0:21 seconds. Balloon out. Inflation number : 2 A AB TREK 2.50X12 RX BALLOON was prepped and advanced across the 2nd Diag , then inflated to 8 JENIFER for 0:16 seconds. Balloon out. Angiography performed, checking results. Runthrough wire out. Angiography performed, checking results. ACT drawn. Results 300 seconds. Therapeutic limits - pre-heparin administration 90-150 seconds and monitoring heparin during a vascular procedure >250 seconds. Guide catheter out. A Right femoral angiogram was performed to determine safe placement of closure device. Lidocaine 1% infiltrated to the right groin. A Angio-Seal VIP ([facility]. [facility]ukh) was successful obtaining hemostatsis at the Right Femoral artery insertion site. lot #[id number] EXP 03-21-2023. Post Procedure: Pulses reassessed and unchanged. PERRLA. Strong, equal hand leaf fat scraper bilaterally. No VTE prophylaxis required. Medication's Wasted: Heparin = 1500 unit. Medication's Wasted: Other = Fentanyl 75 mcg. Total IV fluids: 292 mL. Post-op diagnosis: Severe ostial 2nd diagonal stenosis, status post balloon angioplasty. Complications: None. Estimated blood loss: 5mL-10mL. Responsiveness - Normal response to verbal stimuli; alert and oriented, PERRLA. Airway - Unaffected, no intervention required; spontaneous ventilation. Circulation: W/N/L, pulses unchanged. Nausea/Vomiting: N/A. Procedure completed. Patient transferred by bed to 1st floor. Vital chart was stopped. Access Site Site: Right Femoral artery Sheath Size: 5 Fr Hemostasis Method: Angio-Seal VIP ([facility]uk[facility]) Hemostasis Success: Successful Procedure Medications Start: 7:27 AM Stop: 7:27 AM Medication: Versed Amount: 1 mg Route: I.V. Start: 7:27 AM Stop: 7:27 AM Medication: Fentanyl Amount: 50 mcg Route: I.V. Start: 7:30 AM Stop: 7:30 AM Medication: 0.9% Saline Amount: 250 ml Route: I.V. bolus Start: 7:33 AM Stop: 7:33 AM Medication: Versed Amount: 1 mg Route: I.V. Start: 7:43 AM Stop: 7:43 AM Medication: Heparin Amount: 1500 units Route: I.V. Start: 7:49 AM Stop: 7:49 AM Medication: Fentanyl Amount: 50 mcg Route: I.V. Start: 8:04 AM Stop: 8:04 AM Medication: Heparin Amount: 8000 units Route: I.V. Start: 8:06 AM Stop: 8:06 AM Medication: Versed Amount: 1 mg Route: I.V. Start: 8:21 AM Stop: 8:21 AM Medication: Fentanyl Amount: 25 mcg Route: I.V. Start: 8:22 AM Stop: 8:22 AM Medication: Versed Amount: 1 mg Route: I.V. Start: 8:23 AM Stop: 8:23 AM Medication: Aspirin Amount: 81 mg Route: P.O. I, the attending physician, have reviewed and verified all procedure medications. Yes, all medications given per verbal order History/Risk Factors Hypertension: Yes Dyslipidemia: Yes Peripheral Arterial Disease (PAD): No Myocardial Infarction (FL): No Obesity: Yes Renal Disease: No Tobacco Use: Never Prior Interventions PCI: Yes CABG: No Valve Surgery: No Date of PCI: 05/14/2020 Report Signatures Interventional Workflow Finalized by Nic Chavez MD on 08/18/2022 12:49 PM Diagnostic Workflow Finalized by Dr Elizabeth Winters MD [facility] on 08/14/2022 09:32 PM
--- NOTE | 2022-08-14 07:14 | W.PM.OPSUD ---
Surgery/Procedure H&P Update DATE OF PROCEDURE: August 14, 2022 DATE H&P PERFORMED: 07/30/22 H&P UPDATE INFORMATION: I have reviewed H&P completed within last 30 days, I have examined patient prior to procedure and Changes to prior documentation as noted here CHANGES TO PREVIOUS DOCUMENTATION: Pt has a high BUN/Creatinine. This was discussed with the patient in detail/ THe increased chance for contrast induced nephropathy was discussed.. Pt understood this well. We will give IV hydration. PREOP DIAGNOSIS: ASHD/ Abnormal MPI PRIMARY INDICATION FOR PROCEDURE: Increasing episodes of chest pain; S/P multiple PCIs PLANNED PROCEDURE: Operation Date: 08/14/22 07:00 Proposed Procedures p [facility] w/-w/o 39856,R06.02(Left) - Elizabeth Winters MD PATIENT REASSESSED PRIOR TO SEDATION, WITH NO CHANGE NOTED: Yes PHYSICAL EXAM: alert, oriented x 3, clear to auscultation bilaterally and regular rate & rhythm AIRWAY EVAL/ANESTHESIA PLAN: normal airway, see other exam findings, ASA III, Monitored Anesthesia, Local Anesthesia, Risks, benefits & alternatives of sedation and/or procedure discussed and Patient agrees to continue as planned
[2022-08-14] MEDS: sodium chloride 0.9% 1,000 ML 100 ML IV ×2 (09:33→21:58)
[2022-08-14] MEDS: magnesium oxide 400 mg tablet PO (11:40)
[2022-08-14] MEDS: HYDROcodone-acetaminophen 5-325 mg Tablet 1 TAB PO ×2 (11:40→21:53)
[2022-08-14] MEDS: albuterol 2.5 mg/3 mL Neb INHALATION ×3 (11:42→21:48)
[2022-08-14 11:52] LABS: Glucose Point of Care 300 mg/dL (70-110)
[2022-08-14] MEDS: insulin lispro 100 unit/1 mL SUBCUT ×3 (12:56→21:27)
--- NOTE | 2022-08-14 14:30 | PC.NURSE ---
up and ambulated to bathroom pt tolerated activity well. no hematoma, swelling or bleeding on right groin.
[2022-08-14] MEDS: hyDRALAzine 50 mg Tablet 100 MG PO ×2 (14:45→20:23)
[2022-08-14 17:00] LABS: Glucose Point of Care 329 mg/dL (70-110)
[2022-08-14] MEDS: metoprolol tartrate 25 mg Tablet PO (20:23)
[2022-08-14] MEDS: pregabalin 150 mg Capsule PO (20:23)
[2022-08-14 21:11] LABS: Glucose Point of Care 306 mg/dL (70-110)
[2022-08-14] MEDS: budesonide 0.5 mg/2 mL Neb INHALATION (21:48)
[2022-08-14] MEDS: sodium chloride 0.9% 1,000 ML 50 ML IV (21:54)
[2022-08-15] VITALS (57 sets, daily range): BP systolic 116–154; BP diastolic 64–74; PULSE 56–76; RESP 12–23; TEMP 36.3–36.9; O2SAT 93–99
[2022-08-15 06:37] LABS: Glucose Point of Care 224 mg/dL (70-110)
[2022-08-15] MEDS: albuterol 2.5 mg/3 mL Neb INHALATION ×2 (08:01→11:18)
[2022-08-15] MEDS: budesonide 0.5 mg/2 mL Neb INHALATION (08:01)
[2022-08-15 09:44] LABS: Anion Gap 15.1 (5-19); Blood Urea Nitrogen 20 mg/dL (8-23); Calcium 9.1 mg/dL (8.5-10.5); Carbon Dioxide 23 mmol/L (22-29); Chloride 100 mmol/L (98-107); Creatinine Clr Calc Pharmacy 149.7696; Glomerular Filtration Rate 84.8 mL/min (90-130); Glucose 349 mg/dL (65-115); Osmolality Calculated 295 mOsm/kg (285-295); Potassium 4.1 mmol/L (3.5-5.1); Sodium 134 mmol/L (136-145)
[2022-08-15] MEDS: insulin lispro 100 unit/1 mL SUBCUT ×2 (10:09→12:50)
[2022-08-15] MEDS: ARIPiprazole 10 mg Tablet PO (10:09)
[2022-08-15] MEDS: isosorbide mononitrate ER 60 mg Tablet 120 MG PO (10:11)
[2022-08-15] MEDS: pregabalin 150 mg Capsule PO (10:11)
[2022-08-15] MEDS: magnesium oxide 400 mg tablet PO (10:12)
[2022-08-15] MEDS: ropinirole 2 mg Tablet 4 MG PO (10:12)
[2022-08-15] MEDS: hyDRALAzine 50 mg Tablet 100 MG PO (10:13)
[2022-08-15] MEDS: sitagliptin 100 mg Tablet PO (10:13)
[2022-08-15] MEDS: amlodipine 10 mg Tablet PO (10:14)
[2022-08-15] MEDS: pantoprazole DR 40 mg Tablet PO (10:14)
[2022-08-15] MEDS: montelukast sodium 10 mg Tablet PO (10:14)
[2022-08-15] MEDS: atorvastatin 40 mg Tablet PO (10:15)
[2022-08-15] MEDS: predniSONE 20 mg Tablet PO (10:15)
[2022-08-15] MEDS: cetirizine 10 mg Tablet PO (10:16)
[2022-08-15] MEDS: clopidogrel 75 mg Tablet PO (10:16)
[2022-08-15] MEDS: aspirin 81 mg Chew Tablet PO (10:16)
[2022-08-15] MEDS: metoprolol tartrate 25 mg Tablet PO (10:17)
[2022-08-15] MEDS: prenatal vitamin Capsule 1 CAP PO (10:17)
--- NOTE | 2022-08-15 11:21 | P.PN_ITS ---
Subjective Subjective: The patient was admitted to the hospital following the cardiac evaluation and PCI for close monitoring and IV hydration. He was found to have a BUN of 29 with a creatinine of 1.2, prior to the hospital admission. She was given IV fluid prior to the cath and also following the intervention. The repeat a BMP this morning revealed BUN of 20 and a creatinine of 0.7. Remained stable throughout the hospital course. No hematoma bleeding at the groin-arterial puncture site.. Her vital signs remained stable. Medications: Medication Review Details: Current Medications Albuterol Sulfate (Albuterol 2.5 Mg/3 Ml Neb) 2.5 mg INHALATION Q4H PRN PRN Reason: SOB/WHEEZING Albuterol Sulfate (Albuterol 2.5 Mg/3 Ml Neb) 2.5 mg INHALATION QID.RESPIRATORY [facility] Last Admin: 08/15/22 11:18 Dose: 2.5 mg Amlodipine Besylate (Amlodipine 10 Mg Tablet) 10 mg PO DAILY [facility] Last Admin: 08/15/22 10:14 Dose: 10 mg Aripiprazole (Aripiprazole 10 Mg Tablet) 10 mg PO DAILY [facility] Last Admin: 08/15/22 10:09 Dose: 10 mg Aspirin (Aspirin 81 Mg Chew Tablet) 81 mg PO DAILY [facility] Last Admin: 08/15/22 10:16 Dose: 81 mg Atorvastatin Calcium (Atorvastatin 40 Mg Tablet) 40 mg PO DAILY [facility] Last Admin: 08/15/22 10:15 Dose: 40 mg Budesonide (Budesonide 0.5 Mg/2 Ml Neb) 0.5 mg INHALATION BID.RESPIRATORY [facility] Last Admin: 08/15/22 08:01 Dose: 0.5 mg Cetirizine HCl (Cetirizine 10 Mg Tablet) 10 mg PO DAILY [facility] Last Admin: 08/15/22 10:16 Dose: 10 mg Clopidogrel Bisulfate (Clopidogrel 75 Mg Tablet) 75 mg PO DAILY [facility] Last Admin: 08/15/22 10:16 Dose: 75 mg Cyanocobalamin (Cyanocobalamin 1,000 Mcg/Ml Sdv) 0 mcg IM .COMPLEX [facility] Desvenlafaxine (Desvenlafaxine 50 Mg Tablet) 100 mg PO DAILY [facility] Last Admin: 08/15/22 10:19 Dose: Not Given Ergocalciferol (Ergocalciferol (Vitamin D2) 50,000 Unit Capsule) 50,000 unit PO Q7D [facility] Furosemide (Furosemide 20 Mg Tablet) 20 mg PO Q2D [facility] Last Admin: 08/14/22 09:29 Dose: Not Given Hydralazine HCl (Hydralazine 50 Mg Tablet) 100 mg PO TID [facility] Last Admin: 08/15/22 10:13 Dose: 100 mg Sodium Chloride (Sodium Chloride 0.9%) 1,000 mls @ 100 mls/hr IV .Q10H [facility] Last Admin: 08/15/22 11:11 Dose: Not Given Insulin Human Lispro (Insulin Lispro 100 Unit/1 Ml) 0 unit SUBCUT TIDAC [facility] Insulin Human Lispro (Insulin Lispro 100 Unit/1 Ml) 0 unit SUBCUT WM&BEDTIME [facility]; Protocol Last Admin: 08/15/22 10:09 Dose: 4 unit Isosorbide Mononitrate (Isosorbide Mononitrate Er 60 Mg Tablet) 120 mg PO DAILY [facility] Last Admin: 08/15/22 10:11 Dose: 120 mg Magnesium Oxide (Magnesium Oxide 400 Mg Tablet) 400 mg PO DAILY [facility] Last Admin: 08/15/22 10:12 Dose: 400 mg Metoprolol Tartrate (Metoprolol Tartrate 25 Mg Tablet) 25 mg PO BID@0900,2100 [facility] Last Admin: 08/15/22 10:17 Dose: 25 mg Montelukast Sodium (Montelukast Sodium 10 Mg Tablet) 10 mg PO DAILY [facility] Last Admin: 08/15/22 10:14 Dose: 10 mg Nitroglycerin (Nitroglycerin 0.4 Mg Sublingual Tablet) 0.4 mg SUBLINGUAL Q5M PRN PRN Reason: chest pain Non-Formulary Medication (Acyclovir) 0 tab PO .COMPLEX [facility] Non-Formulary Medication (Insulin Degludec [Tresiba Flextouch U-100]) 0 unit SUBCUT BID@0900,2100 [facility] Non-Formulary Medication (Lactobacillus Combination No.4 [Probiotic]) 3,000 mmu cells PO DAILY [facility] Last Admin: 08/14/22 09:29 Dose: Not Given Ondansetron HCl (Ondansetron 4 Mg Tablet) 4 mg PO TID PRN PRN Reason: nausea and vomiting Pantoprazole Sodium (Pantoprazole Dr 40 Mg Tablet) 40 mg PO DAILY [facility] Last Admin: 08/15/22 10:14 Dose: 40 mg Potassium Chloride (Potassium Chloride Er 10 Meq Tablet) 10 meq PO DAILY [facility] Last Admin: 08/15/22 10:20 Dose: Not Given Prednisone (Prednisone 20 Mg Tablet) 20 mg PO DAILY [facility] Last Admin: 08/15/22 10:15 Dose: 20 mg Pregabalin (Pregabalin 150 Mg Capsule) 150 mg PO BID@0900,2100 [facility] Last Admin: 08/15/22 10:11 Dose: 150 mg Multivit/Folic Acid/Iron ( Vitamin Capsule) 1 cap PO DAILY [facility] Last Admin: 08/15/22 10:17 Dose: 1 cap Ropinirole HCl (Ropinirole 2 Mg Tablet) 4 mg PO DAILY [facility] Last Admin: 08/15/22 10:12 Dose: 4 mg Sitagliptin Phosphate (Sitagliptin 100 Mg Tablet) 100 mg PO DAILY [facility] Last Admin: 08/15/22 10:13 Dose: 100 mg Vitals/I&O/Wt Last Vital Signs Temp 97.3 F L 08/15/22 05:52 Pulse 67 08/15/22 11:20 Resp 18 08/15/22 11:20 BP 151/74 08/15/22 09:00 Pulse Ox 99 08/15/22 11:20 O2 Del Method 08/15/22 11:20 O2 Flow Rate 0 08/15/22 08:02 08/14/22 08/15/22 08/15/22 22:59 06:59 14:59 Intake Total 2180 / 2417 240 / 2657 1480 / 1480 Output Total 1320 / 1320 Balance 860 / 1097 240 / 1337 1480 / 1480 Weight last 48 hrs Weight 251 lb Weight 251 lb Physical Exam Narrative: GENERAL: The patient is alert and oriented times three. Not in any acute distress. HEENT: No significant pallor, icterus or lymphadenopathy.Oral cavity: There are no mucous membrane lesions. NECK: Trachea appears to be central. No masses noted. No JVD or thyromegaly appreciated. RESPIRATORY: Chest is symmetrical. No intercostals muscle retraction or any accessory muscle activation. There is no chest wall tenderness. Breath sounds a re heard bilaterally. No rales or rhonchi heard. No evidence of any consolidation. BREASTS: Deferred. HEART: The heart sounds are normal. No S3 or S4. No significant murmurs. No pericardial rub ABDOMEN: No vessel pulsations or distention. No tenderness. No organomegaly appreciated. Bowel sounds are normally heard. : Deferred. RECTAL: Deferred. LYMPHATIC: No lymphadenopathy noted in the neck. EXTREMITIES: No edema or cyanosis. No clubbing. No hematoma bleeding at the arterial puncture site in the right groin MUSCULOSKELETAL: No acute joint deformities or swelling SKIN: There are no significant rashes or ecchymosis NEUROPSYCHIATRIC: The patient is alert and oriented x3. Appears to be in a good mood. No tremors or rigidity noted. Data 08/14/22 06:15 08/15/22 09:06 Other Labs: Laboratory Last Values WBC 9.5 10^3/uL (4.0-10.0) 08/14/22 06:15 RBC 4.48 10^6/uL (4.1-5.3) 08/14/22 06:15 Hgb 12.5 g/dL (11.5-15.3) 08/14/22 06:15 Hct 39.0 % (37.0-47.0) 08/14/22 06:15 MCV 87.1 fl (81-99) 08/14/22 06:15 MCH 27.9 pg (28.0-34.0) L 08/14/22 06:15 MCHC 32.1 g/dL (30.0-36.0) 08/14/22 06:15 RDW 13.4 % (12.1-15.1) 08/14/22 06:15 Plt Count 238 10^3/cmm (130-400) 08/14/22 06:15 MPV 10.4 fL (7.4-10.4) 08/14/22 06:15 Neut % (Auto) 69.6 % 08/14/22 06:15 Lymph % (Auto) 21.8 % 08/14/22 06:15 [place] % (Auto) 6.2 % 08/14/22 06:15 Eos % (Auto) 1.6 % 08/14/22 06:15 Baso % (Auto) 0.6 % 08/14/22 06:15 Neut # (Auto) 6.62 10^3/uL (1.8-7.7) 08/14/22 06:15 Lymph # (Auto) 2.1 10^3/uL (0.8-4.8) 08/14/22 06:15 [place] # (Auto) 0.6 10^3/uL (0.2-0.9) 08/14/22 06:15 Eos # (Auto) 0.2 10^3/uL (0.0-0.8) 08/14/22 06:15 Baso # (Auto) 0.1 10^3/uL (0.0-0.1) 08/14/22 06:15 Nucleated RBC % (auto) 0 % 08/14/22 06:15 Nucleated RBCs # 0.0 /100WBC 08/14/22 06:15 PT 13.80 SECONDS (12.1-14.9) 08/14/22 06:15 INR 1.03 (0.8-1.2) 08/14/22 06:15 Sodium 134 mmol/L (136-145) L 08/15/22 09:06 Potassium 4.1 mmol/L (3.5-5.1) 08/15/22 09:06 Chloride 100 mmol/L (98-107) 08/15/22 09:06 Carbon Dioxide 23 mmol/L (22-29) 08/15/22 09:06 Anion Gap 15.1 (5-19) 08/15/22 09:06 BUN 20 mg/dL (8-23) 08/15/22 09:06 Creatinine 0.7 mg/dL (0.5-0.9) 08/15/22 09:06 GFR Calculation 84.8 mL/min (90-130) L 08/15/22 09:06 Glucose 349 mg/dL (65-115) H 08/15/22 09:06 POC Glucose 224 mg/dL (70-110) H 08/15/22 06:19 Calculated Osmolality 295 mOsm/kg (285-295) 08/15/22 09:06 Calcium 9.1 mg/dL (8.5-10.5) 08/15/22 09:06 A&P Assessment and plan (1) Abnormal cardiovascular stress test: Patient had the cardiac catheterization yesterday. She was found to have a hig h-grade lesion at the ostium of the second diagonal branch of the left anterior descending artery. She underwent a plain old angioplasty of the ostial lesion. Since the intervention, she has not had any recurrence of chest pain. Currently remained stable with no new symptoms. (2) Atherosclerotic heart disease of [place] coronary artery with other forms of angina pectoris: As mentioned above. She may continue on the Plavix, aspirin and other current medications. (3) Chronic kidney disease: The BMP after the IV hydration shows remarkable improvement of the BUN and the creatinine. We will continue on the current management. (4) Uncontrolled type 2 diabetes mellitus: Importance of aggressive management of the diabetes, cardiovascular complications of uncontrolled diabetes and the need for compliance to treatment were discussed. Patient seems to understand these well. Qualifiers: Glycemic state: with hyperglycemia Qualified Code(s): E11.65 - Type 2 diabetes mellitus with hyperglycemia (5) Dyslipidemia (high LDL; low HDL): We will continue on the current treatment. (6) Essential hypertension: The blood pressure is of stage II. He is advised to start monitoring blood pressure at home and keep a blood pressure diary. After reviewing the results, further recommendations will be made Plan If she continues remain stable, will be discharged home today. Appointment the [facility] next week. I will see her back in the office as scheduled Attestations Medical Necessity Statement*: Discharge home today. Coding Level of Care Code Acute Code for [facility] Fwd Diagnoses Abnormal cardiovascular stress test R94.39 Atherosclerotic heart disease of [place] coronary artery with other forms of angina pectoris I25.118 Chronic kidney disease N18.9 Uncontrolled type 2 diabetes mellitus E11.65 Glycemic state: with hyperglycemia Dyslipidemia (high LDL; low HDL) E78.5 Essential hypertension I10
[2022-08-15 11:34] LABS: Glucose Point of Care 336 mg/dL (70-110)
== END 2022-08-15 13:27 | disposition home or self-care (01) ==
LOC: CCL 05:45 → CSU 08:07
PROVIDERS: Internal Medicine; PCP Family Medicine; Visit Provider Internal Medicine Cardiovascular Disease
DX: I25.118 Atherosclerotic heart disease of native coronary artery with other forms of angina pectoris (principal); E66.9 Obesity, unspecified; Z68.43 Body mass index [BMI] 50.0-59.9, adult; R94.39 Abnormal result of other cardiovascular function study; E11.65 Type 2 diabetes mellitus with hyperglycemia; E78.2 Mixed hyperlipidemia; E11.22 Type 2 diabetes mellitus with diabetic chronic kidney disease; I12.9 Hypertensive chronic kidney disease with stage 1 through stage 4 chronic kidney disease, or unspecified chronic kidney disease; N18.9 Chronic kidney disease, unspecified; G47.33 Obstructive sleep apnea (adult) (pediatric); Z79.82 Long term (current) use of aspirin; Z79.4 Long term (current) use of insulin
CPT/HCPCS: 36415; 36416; 80048; 82962; 85025; 85347; 85610; 92920; 93458; 94640; 96361; 96365; 96372; 99152; 99153; C1725; C1760; C1769; C1887; C1894; G0269; J1644; J1815; J2250; J3010; J7030; J7512; J7613; J7626; Q0163; Q9967

== ENCOUNTER → 2022-08-19 08:08 | Outpatient (BNVA) | payer MEDICAID, SELFPAY ==
[2020-10-23 13:54] VITALS: BP 156/86; BMI 54.1
== END ==
PROVIDERS: PCP Family Medicine; Visit Provider Nurse Practitioner Family
DX: I25.118 Atherosclerotic heart disease of native coronary artery with other forms of angina pectoris (principal); I10 Essential (primary) hypertension
CPT/HCPCS: 36415; 80048; 99214

== ENCOUNTER → 2022-10-14 10:20 | Outpatient (BNVA) | payer MEDICAID, SELFPAY ==
[2020-10-23 13:54] VITALS: BP 156/86; BMI 54.1
== END ==
PROVIDERS: PCP Family Medicine; Visit Provider Podiatrist Foot & Ankle Surgery
DX: E11.21 Type 2 diabetes mellitus with diabetic nephropathy (principal); L60.8 Other nail disorders; L60.3 Nail dystrophy; Z79.4 Long term (current) use of insulin; M21.40 Flat foot [pes planus] (acquired), unspecified foot; M20.10 Hallux valgus (acquired), unspecified foot
CPT/HCPCS: 11721

== ENCOUNTER → 2022-10-16 10:45 | Outpatient (BNVA) | payer MEDICAID, SELFPAY ==
[2020-10-23 13:54] VITALS: BP 156/86; BMI 54.1
== END ==
PROVIDERS: PCP Family Medicine; Visit Provider Internal Medicine Cardiovascular Disease
DX: I25.118 Atherosclerotic heart disease of native coronary artery with other forms of angina pectoris (principal); G47.33 Obstructive sleep apnea (adult) (pediatric); Z79.4 Long term (current) use of insulin; E78.2 Mixed hyperlipidemia; R07.9 Chest pain, unspecified; E66.01 Morbid (severe) obesity due to excess calories; Z68.43 Body mass index [BMI] 50.0-59.9, adult; E11.42 Type 2 diabetes mellitus with diabetic polyneuropathy; I12.9 Hypertensive chronic kidney disease with stage 1 through stage 4 chronic kidney disease, or unspecified chronic kidney disease; E11.22 Type 2 diabetes mellitus with diabetic chronic kidney disease; E11.65 Type 2 diabetes mellitus with hyperglycemia; N18.9 Chronic kidney disease, unspecified
CPT/HCPCS: 99214

== ENCOUNTER → 2022-10-20 15:25 | Outpatient (BNVA) | payer MEDICAID, SELFPAY ==
[2020-10-23 13:54] VITALS: BP 156/86; BMI 54.1
== END ==
PROVIDERS: PCP Family Medicine; Referring Provider Family Medicine; Visit Provider Student in an Organized Health Care Education/Training Program
DX: M17.0 Bilateral primary osteoarthritis of knee (principal)
CPT/HCPCS: 73560; 73565

== ENCOUNTER 2022-10-20 16:15 | Outpatient (CLI) | payer MEDICAID, SELFPAY ==
[2020-10-23 13:54] VITALS: BP 156/86; BMI 54.1
== END 2022-10-20 16:16 | disposition home or self-care (01) ==
PROVIDERS: PCP Family Medicine; Visit Provider Student in an Organized Health Care Education/Training Program
DX: Z46.89 Encounter for fitting and adjustment of other specified devices (principal); M17.11 Unilateral primary osteoarthritis, right knee; M17.12 Unilateral primary osteoarthritis, left knee; E11.9 Type 2 diabetes mellitus without complications; E66.01 Morbid (severe) obesity due to excess calories; Z68.42 Body mass index [BMI] 45.0-49.9, adult
CPT/HCPCS: 97760; 99204; L1851

== ENCOUNTER → 2023-01-15 13:33 | Outpatient (BNVA) | payer MEDICAID, SELFPAY ==
[2020-10-23 13:54] VITALS: BP 156/86; BMI 54.1
== END ==
PROVIDERS: PCP Family Medicine; Visit Provider Internal Medicine Pulmonary Disease
DX: M25.60 Stiffness of unspecified joint, not elsewhere classified (principal); J98.4 Other disorders of lung; J45.40 Moderate persistent asthma, uncomplicated; I25.118 Atherosclerotic heart disease of native coronary artery with other forms of angina pectoris; G47.33 Obstructive sleep apnea (adult) (pediatric); E66.01 Morbid (severe) obesity due to excess calories; Z68.43 Body mass index [BMI] 50.0-59.9, adult; Z99.81 Dependence on supplemental oxygen; Z95.5 Presence of coronary angioplasty implant and graft
CPT/HCPCS: 36415; 83880; 85651; 86140; 86200; 86225; 86235; 86431; 99214

== ENCOUNTER → 2023-01-19 09:05 | Outpatient (BNVA) | payer MEDICAID, SELFPAY ==
[2020-10-23 13:54] VITALS: BP 156/86; BMI 54.1
== END ==
PROVIDERS: PCP Family Medicine; Visit Provider Podiatrist Foot & Ankle Surgery
DX: L60.8 Other nail disorders (principal); E11.21 Type 2 diabetes mellitus with diabetic nephropathy; L60.3 Nail dystrophy; M20.12 Hallux valgus (acquired), left foot; M20.11 Hallux valgus (acquired), right foot; M21.42 Flat foot [pes planus] (acquired), left foot; M21.41 Flat foot [pes planus] (acquired), right foot; Z79.4 Long term (current) use of insulin
CPT/HCPCS: 11721

== ENCOUNTER 2023-02-04 10:08 | Outpatient (CLI) | payer MEDICAID, SELFPAY ==
[2020-10-23 13:54] VITALS: BP 156/86; BMI 54.1
[2023-02-04 10:12] VITALS: BP 143/78
== END 2023-02-04 10:09 | disposition home or self-care (01) ==
PROVIDERS: PCP Family Medicine; Visit Provider Internal Medicine Pulmonary Disease
DX: J98.4 Other disorders of lung (principal)
CPT/HCPCS: 94010; 94618; 94726; 94729